=== PATIENT | male | born 1965 | race Caucasian/White ===

== ENCOUNTER 2017-04-23 10:08 | Emergency (ER) | payer OTHER, SELFPAY ==
[2017-04-23 10:11] VITALS: BP 184/99; PULSE 81; RESP 16; TEMP 36.8; O2SAT 99; BMI 31.0
--- NOTE | 2017-04-23 10:23 | US_ITS ---
STUDY: ABDOMINAL ULTRASOUND - RIGHT UPPER QUADRANT REASON FOR VISIT: Male, 51 years old. Abdominal pain. TECHNIQUE: Ultrasound evaluation of the right upper quadrant was performed with real-time and static huang-scale imaging. TECHNICAL QUALITY: Adequate. COMPARISON: None. FINDINGS: Liver: The liver measures 16.1 cm. There is normal echogenicity of the liver. The bile ducts are within normal limits. There is hepatic color flow. The direction of portal flow is hepatopetal. There is no demonstrated mass lesion. Gallbladder: Normal distended gallbladder. The gallbladder wall measures 2.4 mm. There is a negative sonographic Franco's sign. There is no pericholecystic fluid. There are no gallstones. Common Bile Duct (C.B.D.): The common bile duct measures 5.2 mm. Pancreas: There is nonvisualization of the pancreas due to overlying bowel gas. Right Kidney: Normal size of the right kidney. The right kidney measures 12.2 cm x 6.6 cm x 6.1 cm. Normal renal cortex. The right cortex measures 2.2 cm. There is a 1.5 cm x 1.4 cm x 1.5 cm cyst in the superior pole of the right kidney. There is no right hydronephrosis. US/Gallbladder IMPRESSION: Normal right upper quadrant ultrasound examination. Electronically Signed: Igor Irwin MD at 12:13 EDT Tel [phone], Service support ,
--- NOTE | 2017-04-23 10:32 | ED.DCSUM_ITS ---
- ER Visit Summary Date of Service: 04/23/17 Chief Complaint: Abdominal pain History of Present Illness: The patient is a 51 M who has right sided abdominal pain. Started about a week ago. He states it has been constant pain. It stabbing and burning in the right flank and upper quadrant area. He denies nausea, vomiting, diarrhea, constipation or urinary symptoms. He has not had a fever. No history of kidney stones. He went to an urgent care and they directed him here. He has a history of a gastric bypass surgery Physical Examination: Vital signs reviewed. HEENT exam unremarkable. Heart is regular rate and rhythm without murmurs. Lungs are clear to auscultation. Abdomen is soft with tenderness in the right upper quadrant. He has some mild tenderness in the right flank. He has no pain in the right lower quadrant. Extremities reveal no edema. Skin exam normal. Neurologic exam normal. Test Results: Laboratory studies normal except for glucose of 228. Right upper quadrant ultrasound normal Emergency Department Course and Treatment: Patient was given morphine and Zofran Treatment Plan: Unclear the etiology of his pain. His labs are completely normal. I do not feel he requires any further testing. He will continue his home pain medications and will follow up with his PCP for further testing Disposition: Discharge Impression: Abdominal pain This note was generated with [employer] dictation software. It may contain incorrect words, spelling, and punctuation that were not noted in review of the chart prior to signing ED Disposition - Plan for ED Patient: Chief Complaint: Abd Pain Referrals: Abelardo Nava MD [Primary Care Provider] -
[2017-04-23] MEDS: Ondansetron 4 MG/2 ML Vial IV (10:48)
[2017-04-23 11:14] LABS: Absolute Lymphocyte Count 1.71 X10^3/ul (0.83-4.51); Absolute Neutrophil Count 3.6 X10^3/uL (2.0-7.7); Basophil# 0.04 X10^3/uL; Basophil% 0.7 % (0-1); Eosinophil# 0.13 X10^3/uL; Eosinophils% 2.2 % (0-5); Hematocrit 44.4 % (40-54); Hemoglobin 15.4 g/dl (13.0-16.5); Lymphocyte # 1.71 X10^3/ul (4.0); Mean Corp Hgb Conc 34.7 g/gl (32-36); Mean Corpuscular Hgb 30.4 pg (27.0-32.0); Mean Corpuscular Volume 87.7 fL (80-94); Mean Platelet Vol. 11.1 fl (6.2-12.0); Monocyte# 0.34 X10^3/uL; Monocyte% 5.8 % (0-10); Neutrophil # 3.64 X10^3/uL (2.7-7.7); Neutrophil % 61.8 % (47-70); Platelet Count 234 K/mm3 (150-450); RBC Distribution Width SD 41.1 fl (35.1-43.9); Red Blood Count 5.06 M/mm3 (4.6-6.2); White Blood Count 5.9 K/mm3 (4.4-11.0)
[2017-04-23 11:16] LABS: POSITIVE COUNT NO; POSITIVE DIFFERENTIAL NO; POSITIVE MORPHOLOGY NO
[2017-04-23 11:26] LABS: AST(SGOT) 30 U/L (15-37); Alanine Aminotransfer ALT/SGPT 42 U/L (16-61); Alkaline Phosphatase 82 U/L (45-117); Anion Gap 7 (5-15); BUN 7 mg/dL (7-18); BUN/Creat Ratio 10.6 RATIO (10-20); Bilirubin, Direct 0.13 mg/dL (0.00-0.30); Calcium,Total 8.7 mg/dL (8.5-10.1); Chloride 105 mmol/L (98-107); Creatinine, Serum 0.66 mg/dL (0.70-1.30); EST Glomerular Filtration Rate 134 mL/min (>60); Est Glom Filt Rate - Afr Amer 162 mL/min (>60); Estimated Creatinine Clearance 129.44 ml/min; Globulin 3.3 g/dL (2.2-4.2); Glucose 228 mg/dL (74-106); Lipase 76 U/L (73-393); Potassium 3.8 mmol/L (3.5-5.1); Protein, Total 7.3 g/dL (6.4-8.2); Sodium Level 139 mmol/L (136-145)
[2017-04-23 11:45] LABS: Bacteria 0 SEEN /hpf (None Seen); Mucous, Urine 0 SEEN /hpf (<or=2+); Red Blood Cells-Urine 0 SEEN /hpf (0-5); White Blood Cells 0 SEEN /hpf (0-5)
[2017-04-23 11:49] LABS: Color, Urine Yellow (Yellow); Glucose, Dipstick 1000 mg/dl (Normal); Ketone-Dipstick Negative (Negative); Leukocyte Esterase-Dipstick Negative /ul (Negative); Nitrite-Dipstick Negative (Negative); Occult Blood-Urine Negative /ul (Negative); Protein-Dipstick 15 mg/dl (Negative); Specific Gravity, Urine 1.015 (1.002-1.030); Urine Bilirubin Dipstick Negative (Negative); Urine Clarity Sl. Cloudy (Clear); Urine Urobilinogen Normal (Normal)
[2017-04-23 11:58] LABS: Squamous Epithelial Cells - UA 0-5 SEEN /hpf (0-5)
--- NOTE | 2017-04-23 12:27 | ED.DEP ---
ED Disposition - Plan for ED Patient: Disposition: Home or Assisted Living Chief Complaint: Abd Pain Instructions: ED Abdominal Pain Unkn Cause Referrals: Abelardo Nava MD [Primary Care Provider] -
== END 2017-04-23 12:57 | disposition home or self-care (01) ==
PROVIDERS: Emergency Provider Emergency Medicine; Family Provider Internal Medicine; PCP Internal Medicine
DX: R10.9 Unspecified abdominal pain (principal); Z98.84 Bariatric surgery status; E11.9 Type 2 diabetes mellitus without complications; E78.00 Pure hypercholesterolemia, unspecified
CPT/HCPCS: 76705; 80048; 80076; 81001; 83690; 85025; 99283; A4216; J2405

== ENCOUNTER 2017-05-27 21:51 | Observation (INO) | payer OTHER, SELFPAY ==
[2017-05-27 21:53] VITALS: BP 163/103; PULSE 80; RESP 18; TEMP 36.6; O2SAT 98; BMI 29.5
[2017-05-27 22:11] VITALS: O2SAT 98
--- NOTE | 2017-05-27 22:11 | RAD_ITS ---
STUDY: X-RAY CHEST REASON FOR EXAM: Male, 51 years old. Chest pain TECHNIQUE: PA and lateral views of the chest. COMPARISON: None. FINDINGS: Lungs are hyperinflated. There is no focal consolidation. Normal size heart. Normal mediastinum and harvey. Normal visualized pulmonary arteries. There is atherosclerotic calcification of the aortic arch with tortuosity. There are diffuse degenerative changes of the visualized thoracic spine. Normal visualized ribs, clavicles, and shoulders. There are 2 leads of the stimulator projecting over the dorsal aspect of the mid thoracic spine. There is no demonstrated abnormality of the visualized soft tissue structures of the upper abdomen. RAD/Chest PA and Lateral IMPRESSION: Hyperinflated lungs may reflect underlying COPD. Electronically Signed: Tricia Denny MD at 22:42 EDT Tel , Service support ,
--- NOTE | 2017-05-27 22:11 | EKG12_ITS ---
Test Reason : CP Blood Pressure : / mmHG Vent. Rate : 074 BPM Atrial Rate : 074 BPM P-R Int : 146 ms QRS Dur : 096 ms QT Int : 380 ms P-R-T Axes : 011 009 025 degrees QTc Int : 421 ms Normal sinus rhythm Normal ECG Confirmed by DEVIKA ASHER MD ([id number]), editor trade journal RICCARDO BORGES ([id number] on 05/29/2017 3:36:00 PM Referred By: LINDSAY Confirmed By:DEVIKA ASHER MD
[2017-05-27 22:26] VITALS: BP 179/97; PULSE 75
[2017-05-27] MEDS: Aspirin 81 MG TAB.CHEW 324 MG PO (22:26)
[2017-05-27 22:29] LABS: Basophil# 0.05 X10^3/uL; Basophil% 0.6 % (0-1); Eosinophil# 0.16 X10^3/uL; Hemoglobin 15.2 g/dl (13.0-16.5); Lymphocyte % 27.3 % (19-41); Mean Corp Hgb Conc 36.2 g/gl (32-36); Mean Corpuscular Hgb 31.1 pg (27.0-32.0); Mean Corpuscular Volume 85.9 fL (80-94); Mean Platelet Vol. 11.1 fl (6.2-12.0); Monocyte# 0.57 X10^3/uL; Monocyte% 7.1 % (0-10); Neutrophil # 5.01 X10^3/uL (2.7-7.7); Neutrophil % 62.3 % (47-70); Platelet Count 265 K/mm3 (150-450); RBC Distribution Width SD 39.9 fl (35.1-43.9); Red Blood Count 4.89 M/mm3 (4.6-6.2); White Blood Count 8.1 K/mm3 (4.4-11.0)
[2017-05-27 22:31] LABS: POSITIVE COUNT NO; POSITIVE DIFFERENTIAL NO; POSITIVE MORPHOLOGY NO
[2017-05-27 22:38] VITALS: BP 138/97; PULSE 78
[2017-05-27 22:45] VITALS: BP 149/85; PULSE 85
[2017-05-27 22:47] LABS: Anion Gap 9 (5-15); BUN 10 mg/dL (7-18); BUN/Creat Ratio 11.5 RATIO (10-20); Calcium,Total 8.9 mg/dL (8.5-10.1); Chloride 102 mmol/L (98-107); Creatinine, Serum 0.87 mg/dL (0.70-1.30); EST Glomerular Filtration Rate 98 mL/min (>60); Est Glom Filt Rate - Afr Amer 118 mL/min (>60); Estimated Creatinine Clearance 98.19 ml/min; Glucose 162 mg/dL (74-106); Sodium Level 139 mmol/L (136-145)
[2017-05-27 23:03] VITALS: BP 147/85; PULSE 80; RESP 14; O2SAT 98
--- NOTE | 2017-05-27 23:21 | HP.PCM_ITS ---
Problem List (1) Chest pain Status: Acute (2) HLD (hyperlipidemia) Status: Acute (3) Chronic pain Status: Chronic (4) History of diabetes mellitus, type II Status: Chronic (5) History of obesity Status: Chronic (6) Restless legs syndrome (RLS) Status: Chronic History of Present Illness Date of Admission: 05/27/17 Chief Complaint: Chest pain The patient is a 51 year old male w/ h/o DMII, HTN, chronic pain, and restless leg admitted for chest pain. He started having chest discomfort that he originally thought was indigestion and asked his to take him home. Despite resting at home, he continued to have worsening substernal chest pressure. The pressure was constant and moderate. Pressure was associated with left arm heaviness. The pain would radiate up this neck. Nothing made the pain worse or better. His blood pressure at home was in the 200s. He became concern and went to the ED for workup. Last stress test was 5 years ago. Past Medical History Past Medical History (Chronic Problems): Chronic Problems Chronic pain (Chronic) Restless legs syndrome (RLS) (Chronic) History of obesity (Chronic) History of diabetes mellitus, type II (Chronic) Allergies amantadine Allergy (Verified 04/23/17 10:10) Hives metformin [From Glucophage] Allergy (Verified 04/23/17 10:10) Itching pravastatin [From Pravachol] Allergy (Verified 04/23/17 10:10) Hives salmon oil Allergy (Verified 04/23/17 10:10) Itching simvastatin [From Zocor] Allergy (Verified 04/23/17 10:10) Hives tamsulosin Allergy (Verified 04/23/17 10:10) Swelling Home Medications: Ambulatory Orders Medication Instructions Recorded Gabapentin 800 mg PO 4X/DAY 05/11/14 Atorvastatin Calcium [Lipitor] 40 mg PO QHS 02/24/15 Duloxetine Hcl [Cymbalta] 120 mg PO DAILY 02/24/15 Lisinopril [Zestril] 20 mg PO DAILY 03/31/15 Aspirin [Aspir-Low] 81 mg PO DAILY 04/23/17 Cholecalciferol (VIT D3) [Vitamin 1,000 unit PO DAILY 04/23/17 D] Cyanocobalamin [Vitamin B12] 1,000 mcg PO DAILY@0800 04/23/17 Ferrous Sulfate 325 mg PO DAILY@0800 04/23/17 Glipizide 5 mg PO DAILY 04/23/17 Liraglutide [Victoza 2-Farhat] 0.12 mg SQ DAILY 04/23/17 Multivitamins,Therapeutic 1 tablet PO DAILY 04/23/17 [Multivitamin] Tadalafil [Cialis] 5 mg PO DAILY 04/23/17 buPROPion XL [Wellbutrin Xl] 300 mg PO DAILY 04/23/17 traMADol [Ultram (G)] 50 mg PO Q6H PRN PRN 04/23/17 Surgical History: - - 2 prior hip surgeries carpal tunnel gastric bypass Psychiatric History: No pertinent psych hx Lives: Spouse/ Significant Other Smoking Status: Never smoker Alcohol: None Drugs: None - *Family History Maternal History Items: No pertinent history Review of Systems Constitutional: Denies: Chills, Fever, Weight Change Eyes: Denies: Conjunctivae Inflammation, Double vision, Drainage HEENT: Denies: Head Aches, Sinus Congestion, Sinus Drainage Cardiovascular: Reports: Chest Pain, Chest Pressure, Chest Tightness, Heaviness. Denies: Palpitations Respiratory: Denies: Cough, Shortness of breath at rest, Sputum production Gastrointestinal: Denies: Abdominal Pain, Nausea, Vomiting Genitourinary: Denies: Dysuria Musculoskeletal: Denies: Joint Pain, Joint Tenderness Skin: Denies: Rash, Wounds Neurological: Denies: Numbness, Tingling, Focal weakness Psychiatric: Denies: Anxiety, Depression, Homicidal Ideations, Suicidal Ideations Hematologic/ Lymphatic: Denies: Easy Bruising, Easy Bleeding VTE Information - Inpt Only VTE Present on Admission: No VTE Mechan Device Prophylaxis: SCD's VTE Pharm Prophylaxis ordered?: No Patient Problems: Active and Suspected Problems Chest pain (Acute) - Physical Exam General: Alert, Oriented x3, Cooperative HEENT: Atraumatic, PERRLA, EOMI, Normocephalic Neck: Supple, No JVD, Negative Carotid Bruits Lungs: Clear to auscultation, Normal air movement Cardiovascular: Regular rate, No murmurs Abdomen: Bowel Sounds Present, Soft, Non Tender Extremities: No edema, Capillary Refill Less than 3 Seconds Skin: No rashes, No breakdown Musculoskeletal: No Tenderness to Palpation of Joints or Extremities Neurological: Cranial nerves II-XII grossly intact Psych/Mental Status: Normal Affect, Appropriate Vital Signs Temp Pulse Resp BP Pulse Ox 98 F 80 14 147/85 H 98 05/27/17 21:53 05/27/17 23:03 05/27/17 23:03 05/27/17 23:03 05/27/17 23:03 Oxygen Flow Rate (L/min) 2 Oxygen Delivery Method Nasal Cannula Weight: 90.718 kg Body Mass Index (BMI) 29.5 Finger Stick Blood Glucose 253 Laboratory Tests Past 24 Hrs 05/27/17 05/27/17 05/27/17 22:07 22:07 22:07 WBC 8.1 RBC 4.89 Hgb 15.2 Hct 42.0 MCV 85.9 MCH 31.1 MCHC 36.2 H RDW 13.0 RDW Differential 39.9 Plt Count 265 MPV 11.1 Immature Gran % (Auto) 0.700 Neut % (Auto) 62.3 Lymph % (Auto) 27.3 Morehouse % (Auto) 7.1 Eos % (Auto) 2.0 Baso % (Auto) 0.6 Absolute Neuts (auto) 5.0 Absolute Lymphs (auto) 2.20 Total Counted Not Reportable D-Dimer Quant (PE/DVT) 0.40 Sodium 139 Potassium 4.0 Chloride 102 Carbon Dioxide 28.0 Anion Gap 9 BUN 10 Creatinine 0.87 Estim Creat Clear Calc 98.19 Est GFR (MDRD) Af Amer 118 Est GFR (MDRD) Non-Af 98 BUN/Creatinine Ratio 11.5 Glucose 162 H Calcium 8.9 Troponin I < 0.02 Assessment/Plan Active and Suspected Problems Chest pain (Acute) 51 year old male w/ h/o DMII, HTN, chronic pain, and restless leg admitted for chest pain. 1) Chest pain: Heart score 5 given highly suspicious history, age, and > 3 risk factors. Trops negative. EKG and chest xray were unremarkable. Will start statin, coreg, and ASA. ECHO and stress test in AM. FLP pending. 2) DMII: Resume home meds. Monitor. 3) HTN: SBP 170s. Resume home meds. Will consider labetalol PRN if persistently elevated. 4) Prophylaxis: SCD
--- NOTE | 2017-05-27 23:24 | ED.VISSUMM ---
- ER Visit Summary Date of Service: 05/27/17 Chief Complaint: [] Chest pain History of Present Illness: The patient is a 51 M [] complaining of midsternal chest pain with radiation to left upper extremity. Has a history of diabetes. He reports pain started approximately 12 noon today, 10 hours ago. Reports the pain is intermittent. Denies diaphoresis. His radiation to the neck or jaw. Reports last stress test was 5 years ago. Denies PE risk factors. Reports his blood pressure at one point spiked to over 200 systolic during his discomfort at home. He reports taking an extra lisinopril prior to arrival. Reports compliance with his medications. Physical Examination: [] Afebrile, vital signs stable. 51-year-old male in no acute distress. Cardiovascular exam is regular rate and rhythm. Lungs are clear to auscultation. Abdomen is soft and nontender. No lower extremity edema. Test Results: [] CBC, BMP, troponin, d-dimer all within normal limits. Chest x-ray negative. EKG shows normal sinus rhythm, rate of 74 without ischemic changes or interval abnormalities. Emergency Department Course and Treatment: [] Patient underwent routine cardiac evaluation. He received aspirin and nitroglycerin. Patient reports his pain went down to a 4 out of 10 after the third nitroglycerin. He was then given a dose of intravenous fentanyl with pain resolution. He will be admitted for stress testing in light of his history of diabetes and other risk factors. Case discussed with hospitalist will admit the patient on telemetry. Treatment Plan: [] Admit to telemetry with inpatient stress testing. Disposition: [] Admit, stable. Impression: [] Chest pain History of diabetes This note was generated with [employer] dictation software. It may contain incorrect words, spelling, and punctuation that were not noted in review of the chart prior to signing ED Disposition - Plan for ED Patient: Chief Complaint: Chest Pain Referrals: Rocael Bustamante MD [Primary Care Provider] -
[2017-05-27] MEDS: fentaNYL 100 MCG/2 ML Ampul 50 MCG IV (23:45)
[2017-05-28] VITALS (12 sets, daily range): BP systolic 138–163; BP diastolic 77–88; PULSE 62–79; RESP 14–18; TEMP 36.7–37.1; O2SAT 93–99; BMI 30.2
[2017-05-28] MEDS: 0.9% NaCl Peripheral Flush Adult/Peds IV ×3 (01:32→11:21)
[2017-05-28] MEDS: Morphine 2 MG/ML Syringe IV ×3 (01:32→11:20)
[2017-05-28] MEDS: Gabapentin 800 MG Tablet PO ×2 (01:32→11:18)
--- NOTE | 2017-05-28 05:55 | EKG12_ITS ---
Test Reason : AM EKG Blood Pressure : / mmHG Vent. Rate : 060 BPM Atrial Rate : 060 BPM P-R Int : 148 ms QRS Dur : 100 ms QT Int : 434 ms P-R-T Axes : 017 028 006 degrees QTc Int : 434 ms Normal sinus rhythm Normal ECG Confirmed by ANOML CORONA, TORRES ([id number]), photograph editor RICCARDO BORGES ([id number]) on 05/31/2017 1:43:44 PM Referred By: IESHA PHAM Confirmed By:TORRES COREA MD
[2017-05-28] MEDS: Aspirin E.C. 81 MG Tablet PO (06:16)
[2017-05-28] MEDS: Lisinopril 20 MG Tablet PO (06:16)
[2017-05-28 06:18] LABS: Absolute Lymphocyte Count 2.25 X10^3/ul (0.83-4.51); Absolute Neutrophil Count 3.9 X10^3/uL (2.0-7.7); Basophil# 0.03 X10^3/uL; Basophil% 0.4 % (0-1); Eosinophil# 0.19 X10^3/uL; Eosinophils% 2.7 % (0-5); Hemoglobin 14.7 g/dl (13.0-16.5); Lymphocyte # 2.25 X10^3/ul (4.0); Lymphocyte % 32.2 % (19-41); Mean Corpuscular Hgb 30.2 pg (27.0-32.0); Mean Corpuscular Volume 86.4 fL (80-94); Mean Platelet Vol. 10.7 fl (6.2-12.0); Monocyte% 8.6 % (0-10); Neutrophil # 3.87 X10^3/uL (2.7-7.7); Neutrophil % 55.5 % (47-70); Platelet Count 220 K/mm3 (150-450); RBC Distribution Width CV 13.1 % (11.6-14.6); RBC Distribution Width SD 41.2 fl (35.1-43.9); Red Blood Count 4.86 M/mm3 (4.6-6.2)
[2017-05-28 06:22] LABS: POSITIVE COUNT NO; POSITIVE DIFFERENTIAL NO; POSITIVE MORPHOLOGY NO
[2017-05-28 06:41] LABS: Partial Thromboplast Time 28.6 Seconds (24.1-36.2)
[2017-05-28 06:46] LABS: ALB/GLOB Ratio 1.3 RATIO (0.9-2.4); AST(SGOT) 15 U/L (15-37); Alanine Aminotransfer ALT/SGPT 23 U/L (16-61); Albumin, Serum 3.7 g/dL (3.2-5.0); Alkaline Phosphatase 66 U/L (45-117); Anion Gap 5 (5-15); BUN 9 mg/dL (7-18); BUN/Creat Ratio 14.7 RATIO (10-20); Calcium,Total 8.5 mg/dL (8.5-10.1); Chloride 105 mmol/L (98-107); Cholesterol 148 mg/dL (200); Creatinine, Serum 0.61 mg/dL (0.70-1.30); EST Glomerular Filtration Rate 146 mL/min (>60); Est Glom Filt Rate - Afr Amer 177 mL/min (>60); Estimated Creatinine Clearance 140.05 ml/min; Globulin 2.9 g/dL (2.2-4.2); Glucose 93 mg/dL (74-106); High Density Lipoprotein 28 mg/dL; Potassium 3.7 mmol/L (3.5-5.1); Protein, Total 6.6 g/dL (6.4-8.2); Sodium Level 140 mmol/L (136-145); Thyroid Stim Hormone (TSH) 1.49 uIU/mL (0.358-3.74); Triglycerides 77 mg/dL; Very Low Density Lipoprotein 15 mg/dL (5-40)
[2017-05-28 06:49] LABS: International Normalized Ratio 1.1; Prothrombin Time (Protime)PT. 13.9 SECONDS (11.7-14.9)
[2017-05-28] MEDS: Ferrous Sulfate 325 MG Tablet PO (09:13)
[2017-05-28] MEDS: DULoxetine Hcl 60 MG Capsule 120 MG PO (09:13)
[2017-05-28] MEDS: glipiZIDE 5 MG Tablet PO (09:13)
[2017-05-28] MEDS: Multivitamins,Therapeutic Tablet 1 TABLET PO (09:13)
[2017-05-28] MEDS: Carvedilol 3.125 MG TABLET PO (09:13)
[2017-05-28] MEDS: Cyanocobalamin 500 MCG Tablet 1000 MCG PO (09:13)
[2017-05-28] MEDS: buPROPion (XL) 300 MG TABLET.XL PO (09:14)
[2017-05-28] MEDS: traMADol 50 MG Tablet PO (09:14)
[2017-05-28 09:21] LABS: Bedside Glucose 98 mg/dL (70-110)
[2017-05-28] MEDS: Ipratropium/Albuterol Sulfate 3 ML AMPUL.NEB INHALATION (13:51)
[2017-05-28 14:05] LABS: Bedside Glucose 105 mg/dL (70-110)
--- NOTE | 2017-05-28 14:16 | PCM.DC ---
- Discharge Diagnoses Current Active Problems: Current Active and Chronic Problems Chest pain (Acute), Tightness, Suspected secondary to Possible Underlying Asthma/Lung Disease (Stress test unremarkable, cardiac enzymes serially unremarkable, EKG without acute findings, chest tightness improved w/ aerosol administration) Hypertension, Uncontrolled Hyperlipidemia Allergic Rhinitis (On outpatient weekly allergy shots) Diabetes mellitus type II RLE Chronic Pain Syndrome Obesity GERD You will use the following diet at home:: Calorie/Carbohydrate Controlled (specify 1200, 1400, etc) - 1800 ADA/Cardiac diet, Cardiac Your food should be the consistency of: Regular Your liquids should be the consistency of: Regular/Thin Discharge Activity: - - Avoid activity which causes worsened symptoms until pulmonary evaluation. May resume sexual activity in: 1-2 weeks Weight Bearing Status: Weight bearing as tolerated Call your doctor if you observe: Fever of 101 or Higher, Inability to urinate, Inability to have a bowel movement, Shortness of breath, Dizziness, Fainting spells, Chest pain, Uncontrolled pain Instructions: ED Chest Pain NonCardiac, ED Chest Pain Atypical Unkn Cause, Understanding Asthma, What is COPD?, Caring for Your Inhaler, Using an Inhaler with a Spacer, Using an Inhaler Without a Spacer Allergies/Adverse Reactions: Allergies amantadine Allergy (Verified 04/23/17 10:10) Hives metformin [From Glucophage] Allergy (Verified 04/23/17 10:10) Itching pravastatin [From Pravachol] Allergy (Verified 04/23/17 10:10) Hives salmon oil Allergy (Verified 04/23/17 10:10) Itching simvastatin [From Zocor] Allergy (Verified 04/23/17 10:10) Hives tamsulosin Allergy (Verified 04/23/17 10:10) Swelling Medications to take at Discharge Gabapentin 800 mg PO 4X/DAY 05/11/14 Atorvastatin Calcium [Lipitor] 40 mg PO QHS 02/24/15 Duloxetine Hcl [Cymbalta] 120 mg PO DAILY 02/24/15 Lisinopril [Zestril] 20 mg PO DAILY 03/31/15 Aspirin [Aspir-Low] 81 mg PO DAILY 04/23/17 Cholecalciferol (VIT D3) [Vitamin D3] 1,000 unit PO DAILY 04/23/17 Cyanocobalamin [Vitamin B12] 1,000 mcg PO DAILY@0800 04/23/17 Ferrous Sulfate 325 mg PO DAILY@0800 03/19/18 Glipizide 5 mg PO DAILY 04/23/17 Liraglutide [Victoza 2-Farhat] 0.12 mg SQ DAILY 04/23/17 Multivitamins,Therapeutic [Multivitamin] 1 tablet PO DAILY 04/23/17 Tadalafil [Cialis] 5 mg PO DAILY 04/23/17 buPROPion XL [Wellbutrin Xl] 300 mg PO DAILY 04/23/17 traMADol [Ultram] 50 mg PO Q6H PRN PRN 04/23/17 Albuterol IH (ProAir) [Proair Hfa] 1 - 2 puff INHALATION Q4H PRN PRN #1 inhaler 05/28/17 Carvedilol [Coreg (Beta Violetta)] 3.125 mg PO BID #60 tab 05/28/17 Montelukast [Singulair] 10 mg PO DAILY #30 tab 05/28/17 The following prescriptions were given: Albuterol IH (ProAir) [Proair Hfa] 1 - 2 puff INHALATION Q4H PRN PRN #1 inhaler PRN Reason: Dyspnea, wheezing Montelukast [Singulair] 10 mg PO DAILY #30 tab Carvedilol [Coreg (Beta Violetta)] 3.125 mg PO BID #60 tab Primary Care Physician: Rocael Bustamante MD [Primary Care Provider] - Please follow up with your Primary Care Physician in: Follow-up within 3-5 days to review admission. Please Follow Up With: Geovanny Montenegro DO When: Follow-up for eval for suspected Asthma/COPD within 1-2 wk, may see MANAGER TRAINING AND DEVELOPMENT. Proposed Discharge Date: 05/28/17
--- NOTE | 2017-05-28 14:21 | DCINST_ITS ---
- Discharge Diagnoses Current Active Problems: Current Active and Chronic Problems Chest pain (Acute), Tightness, Suspected secondary to Possible Underlying Asthma /Lung Disease (Stress test unremarkable, cardiac enzymes serially unremarkable, EKG without acute findings, chest tightness improved w/ aerosol administration) Hypertension, Uncontrolled Hyperlipidemia Allergic Rhinitis (On outpatient weekly allergy shots) Diabetes mellitus type II RLE Chronic Pain Syndrome Obesity GERD You will use the following diet at home:: Calorie/Carbohydrate Controlled ( specify 1200, 1400, etc) - 1800 ADA/Cardiac diet, Cardiac Your food should be the consistency of: Regular Your liquids should be the consistency of: Regular/Thin Discharge Activity: - - Avoid activity which causes worsened symptoms until pulmonary evaluation. May resume sexual activity in: 1-2 weeks Weight Bearing Status: Weight bearing as tolerated Call your doctor if you observe: Fever of 101 or Higher, Inability to urinate, Inability to have a bowel movement, Shortness of breath, Dizziness, Fainting spells, Chest pain, Uncontrolled pain Instructions: ED Chest Pain NonCardiac, ED Chest Pain Atypical Unkn Cause, Understanding Asthma, What is COPD?, Caring for Your Inhaler, Using an Inhaler with a Spacer, Using an Inhaler Without a Spacer Allergies/Adverse Reactions: Allergies amantadine Allergy (Verified 04/23/17 10:10) Hives metformin [From Glucophage] Allergy (Verified 04/23/17 10:10) Itching pravastatin [From Pravachol] Allergy (Verified 04/23/17 10:10) Hives salmon oil Allergy (Verified 04/23/17 10:10) Itching simvastatin [From Zocor] Allergy (Verified 04/23/17 10:10) Hives tamsulosin Allergy (Verified 04/23/17 10:10) Swelling Medications to take at Discharge Gabapentin 800 mg PO 4X/DAY 05/11/14 Atorvastatin Calcium [Lipitor] 40 mg PO QHS 02/24/15 Duloxetine Hcl [Cymbalta] 120 mg PO DAILY 02/24/15 Lisinopril [Zestril] 20 mg PO DAILY 03/31/15 Aspirin [Aspir-Low] 81 mg PO DAILY 04/23/17 Cholecalciferol (VIT D3) [Vitamin D3] 1,000 unit PO DAILY 04/23/17 Cyanocobalamin [Vitamin B12] 1,000 mcg PO DAILY@0800 04/23/17 Ferrous Sulfate 325 mg PO DAILY@0800 03/19/18 Glipizide 5 mg PO DAILY 04/23/17 Liraglutide [Victoza 2-Farhat] 0.12 mg SQ DAILY 04/23/17 Multivitamins,Therapeutic [Multivitamin] 1 tablet PO DAILY 04/23/17 Tadalafil [Cialis] 5 mg PO DAILY 04/23/17 buPROPion XL [Wellbutrin Xl] 300 mg PO DAILY 04/23/17 traMADol [Ultram] 50 mg PO Q6H PRN PRN 04/23/17 Albuterol IH (ProAir) [Proair Hfa] 1 - 2 puff INHALATION Q4H PRN PRN #1 inhaler 05/28/17 Carvedilol [Coreg (Beta Violetta)] 3.125 mg PO BID #60 tab 05/28/17 Montelukast [Singulair] 10 mg PO DAILY #30 tab 05/28/17 The following prescriptions were given: Albuterol IH (ProAir) [Proair Hfa] 1 - 2 puff INHALATION Q4H PRN PRN #1 inhaler PRN Reason: Dyspnea, wheezing Montelukast [Singulair] 10 mg PO DAILY #30 tab Carvedilol [Coreg (Beta Violetta)] 3.125 mg PO BID #60 tab Primary Care Physician: Rocael Bustamante MD [Primary Care Provider] - Please follow up with your Primary Care Physician in: Follow-up within 3-5 days to review admission. Please Follow Up With: Geovanny Montenegro DO When: Follow-up for eval for suspected Asthma/COPD within 1-2 wk, may see CORPORATE ADMINISTRATOR. Proposed Discharge Date: 05/28/17
--- NOTE | 2017-05-28 14:21 | PCM.DC.SUM ---
Discharge Date and Diagnosis - Problem List Patient Problems: Active and Suspected Problems Chest pain (Acute) Date of Admission: 05/27/17 Date of Discharge: 05/28/17 - Primary Discharge Diagnosis Active and Suspected Problems Chest pain (Acute), Tightness, Suspected secondary to Possible Underlying Asthma/Lung Disease (Stress test unremarkable, cardiac enzymes serially unremarkable, EKG without acute findings, chest tightness improved w/ aerosol administration) Hypertension, Uncontrolled Hyperlipidemia Allergic Rhinitis (On outpatient weekly allergy shots) Diabetes mellitus type II RLS Chronic Pain Syndrome Obesity GERD - Secondary Discharge Diagnosis Chronic Problems Hypertension Hyperlipidemia Allergic Rhinitis (On outpatient weekly allergy shots) Diabetes mellitus type II RLS Chronic Pain Syndrome Obesity GERD Hospital Course and Treatment Operations: None Procedures: EKG, Stress test Summary of Care Provided: The patient is a 51 y/o M w/ PMHx: HTN, HLD, Allergic Rhinitis, Diabetes mellitus type II, RLS, Chronic Pain Syndrome, Obesity, GERD who presents to the [facility] ED on 05/27/17 with onset of substernal chest pressure which was constant and moderate with left arm paresthesia with no exacerbating or alleviating factors with the blood pressure noted initially to be in the 200s upon self check at home with associated dyspnea ongoing for several days. Upon evaluation patient noted that discomfort was in a very specific bandlike region underneath the breast but had improved since initial presentation with pain regimen. In the ED work-up included EKG sinus rhythm without evidence of acute ischemia, CXR without acute process, unremarkable CBC and chemistry, cardiac enzyme set x 1 normal. The patient was admitted to the PCU, maintained on cardiac telemetry, serial cardiac enzymes were obtained as well as serial EKGs which remained unremarkable. Patient underwent AM stress testing which was noted to be negative for inducible ischemia. FLP was obtained during admission and notable for only low HDL with continued home statin regimen with lifestyle and diet changes encouraged. Patient despite negative stress testing and cardiac evaluation noted ongoing tightness sensation with notable underlying severe allergies requiring weekly shots and CXR w/ concerning findings for underlying lung disease without tobacco use history, thus added aerosols and patient noted improvement following aerosol treatments. Given patient improvement with aerosols, suspect underlying lung disease thus as discussed with patient, patient discharged to home in improved condition with recommendation for follow-up with primary care physician within 3-5 days in addition to Pulmonary referral within 1-2 weeks with addition singulair and PRN albuterol inhaler. Advised if discomfort recurrently severe to re-present to the ED for evaluation. DAY OF DISCHARGE PROGRESS NOTE: Subjective: Patient without acute event overnight per self and nursing report. Patient denies fever, chills, nausea, emesis, abdominal pain. Patient did note improvement in chest tightness and dyspnea, but still present, improved after aerosol treatments. Patient agreeable to discharge to home given improvement and negative cardiac evaluation as reviewed. Patient will be discharged with follow-up with primary care physician within 3-5 days in addition to Pulmonary referral and his pain management physician. Objective: T 98.6, heart rate 79, BP 138/83, respiratory rate 18, 93% on room air. Physical Examination: General: awake, alert, oriented x 3 and cooperative, seated upright in the bed, NAD. Skin: normal color, turgor, no icterus, cyanosis. HEENT: AT/NC, EOMI, PERRLA, MMM. Lungs: Diminished breath sounds bilateral bases, mild to moderate effort, no rales, ronchi or wheezing; Heart: Regular rate and rhythm; no gallop, rub audible. Abdomen: soft, NTTP, ND, normal BS. Extremities: no cyanosis, clubbing, or edema. Neurological: patient awake, alert, oriented x 3; cognitive function appears intact upon questioning,; pupils equally reactive to light and accomodation; cranial nerves II-XII grossly normal, moving all 4 extremities, strength, mildly globally decreased secondary to acute presentation. Psychiatric: affect appears normal, no acute evidence of depressive or anxiety feelings. Assessment and Plan: Please see hospital summary above. Discharge Activity: - - Avoid activity which causes worsened symptoms until pulmonary evaluation. May resume sexual activity in: 1-2 weeks Weight Bearing Status: Weight bearing as tolerated Call your doctor if you observe: Fever of 101 or Higher, Inability to urinate, Inability to have a bowel movement, Shortness of breath, Dizziness, Fainting spells, Chest pain, Uncontrolled pain Home Medications: Medications to take at Discharge Gabapentin 800 mg PO 4X/DAY 05/11/14 Atorvastatin Calcium [Lipitor] 40 mg PO QHS 02/24/15 Duloxetine Hcl [Cymbalta] 120 mg PO DAILY 02/24/15 Lisinopril [Zestril] 20 mg PO DAILY 03/31/15 Aspirin [Aspir-Low] 81 mg PO DAILY 04/23/17 Cholecalciferol (VIT D3) [Vitamin D3] 1,000 unit PO DAILY 04/23/17 Cyanocobalamin [Vitamin B12] 1,000 mcg PO DAILY@0800 04/23/17 Ferrous Sulfate 325 mg PO DAILY@0800 04/23/17 Glipizide 5 mg PO DAILY 04/23/17 Liraglutide [Victoza 2-Farhat] 0.12 mg SQ DAILY 04/23/17 Multivitamins,Therapeutic [Multivitamin] 1 tablet PO DAILY 04/23/17 Tadalafil [Cialis] 5 mg PO DAILY 04/23/17 buPROPion XL [Wellbutrin Xl] 300 mg PO DAILY 04/23/17 traMADol [Ultram] 50 mg PO Q6H PRN PRN 04/23/17 Albuterol IH (ProAir) [Proair Hfa] 1 - 2 puff INHALATION Q4H PRN PRN #1 inhaler 05/28/17 Carvedilol [Coreg (Beta Violetta)] 3.125 mg PO BID #60 tab 05/28/17 Montelukast [Singulair] 10 mg PO DAILY #30 tab 05/28/17 Following Prescrptions Were Given to Patient: Albuterol IH (ProAir) [Proair Hfa] 1 - 2 puff INHALATION Q4H PRN PRN #1 inhaler PRN Reason: Dyspnea, wheezing Montelukast [Singulair] 10 mg PO DAILY #30 tab Carvedilol [Coreg (Beta Violetta)] 3.125 mg PO BID #60 tab Primary Care Physician: Rocael Bustamante MD [Primary Care Provider] - Please follow up with your Primary Care Physician in: Follow-up within 3-5 days to review admission. Please Follow Up With: Geovanny Montenegro DO When: Follow-up for eval for suspected Asthma/COPD within 1-2 wk, may see SCIENTIFIC RECRUITER. Patient Instructions: Understanding Asthma, What is COPD?, Caring for Your Inhaler, Using an Inhaler with a Spacer, Using an Inhaler Without a Spacer, ED Chest Pain NonCardiac, ED Chest Pain Atypical Unkn Cause Disposition: Home Minutes spent on discharge:: 20 Patient Condition:: Fair Medical Necessity - Tobacco Use Smoking Status: Never smoker Tobacco Use: Non-smoker Meaningful Use Info Meaningful Use Diagnoses (Choose all that apply): None applicable Code Visit OBSV E&M: 48464 Observation care discharge
--- NOTE | 2017-05-28 14:40 | STRESSREP ---
Stress Test Report Exercise stress test. 51 year old man with a history of chest pain. Stress protocol: Resting EKG demonstrates normal sinus rhythm with a rate of 71 bpm normal intervals and noted resting blood pressure is 138/84 mmHg. The patient exercised according to the regular Jomar protocol for total duration of 7 minutes and 31 seconds patient completed 1 minute and 31 seconds to stage III of the Jomar protocol the maximum heart rate attained was 142 bpm which was 85% maximum predicted heart rate the maximum workload attained was 9.3 metabolic equivalents. At rest there were no ST or T-wave changes noted suggest ischemia at peak exercise upsloping ST changes only were noted would not be the criteria for ischemia. No clinical angina was noted. The resting blood pressure is 138/84 with a peak blood pressure 162/70 mmHg. No clinical angina was noted the test was terminated due to leg fatigue. Conclusion: Exercise stress test with no evidence of ischemia at a moderate workload. No arrhythmias noted. No angina present.
--- NOTE | 2017-05-28 14:43 | STRESSREP_ITS ---
Stress Test Report Exercise stress test. 51 year old man with a history of chest pain. Stress protocol: Resting EKG demonstrates normal sinus rhythm with a rate of 71 bpm normal intervals and noted resting blood pressure is 138/84 mmHg. The patient exercised according to the regular Jomar protocol for total duration of 7 minutes and 31 seconds patient completed 1 minute and 31 seconds to stage III of the Jomar protocol the maximum heart rate attained was 142 bpm which was 85% maximum predicted heart rate the maximum workload attained was 9.3 metabolic equivalents. At rest there were no ST or T-wave changes noted suggest ischemia at peak exercise upsloping ST changes only were noted would not be the criteria for ischemia. No clinical angina was noted. The resting blood pressure is 138/ 84 with a peak blood pressure 162/70 mmHg. No clinical angina was noted the test was terminated due to leg fatigue. Conclusion: Exercise stress test with no evidence of ischemia at a moderate workload. No arrhythmias noted. No angina present.
== END 2017-05-28 14:20 | disposition home or self-care (01) ==
LOC: ED 22:59 → PCU 23:59
PROVIDERS: Admitting Provider Internal Medicine; Emergency Provider Emergency Medicine; Family Provider Family Medicine; PCP Family Medicine; Visit Provider Family Medicine
DX: R07.89 Other chest pain (principal); E11.9 Type 2 diabetes mellitus without complications; E78.5 Hyperlipidemia, unspecified; G25.81 Restless legs syndrome; E66.9 Obesity, unspecified; Z79.899 Other long term (current) drug therapy; Z68.30 Body mass index [BMI] 30.0-30.9, adult; Z71.3 Dietary counseling and surveillance; I10 Essential (primary) hypertension; Z79.82 Long term (current) use of aspirin; Z98.84 Bariatric surgery status; G89.4 Chronic pain syndrome; K21.9 Gastro-esophageal reflux disease without esophagitis
CPT/HCPCS: 36415; 71046; 80048; 80053; 80061; 82962; 83735; 84443; 84484; 85025; 85379; 85610; 85730; 93005; 93017; 96374; 96375; 96376; 99218; 99285; A4216; G0378

== ENCOUNTER → 2017-06-14 09:46 | Outpatient (CLI) | payer OTHER, SELFPAY ==
--- NOTE | 2017-06-14 13:36 | PFT ---
INTRODUCTION: The patient is a 51-year-old male currently under the care of Chrissy Goff NP that presents for pulmonary function testing secondary to a diagnosis of shortness of breath. Respiratory therapy reports good patient effort. Bronchodilators were used during testing. INTERPRETATION: Forced expiration spirometry demonstrates no evidence of a large airways obstructive ventilatory defect. There was no significant response to aerosolized bronchodilators. Spirograms are of good quality and plateau normally. The respiratory flow volume loop appears normal. Body plethysmography was performed and reveals lung volumes to be within normal limits. Diffusing capacity by single breath CO is also within normal limits. IMPRESSION: Normal pulmonary function testing.
== END ==
LOC: PSN 09:46
PROVIDERS: Family Provider Family Medicine; PCP Family Medicine; Visit Provider Nurse Practitioner Acute Care
DX: R07.89 Other chest pain (principal)
CPT/HCPCS: 94060; 94726; 94729

== ENCOUNTER → 2017-06-25 10:46 | Outpatient (CLI) | payer OTHER, SELFPAY ==
[2017-06-25 11:00] VITALS: PULSE 58; PULSE 59; PULSE 60; PULSE 62; PULSE 68; PULSE 81; O2SAT 92; O2SAT 93; O2SAT 94; O2SAT 97; O2SAT 98
--- NOTE | 2017-06-25 13:24 | WT_ITS ---
PSN 6 Minute Walk Test - 6 Minute Walk Test 6 Minute Walk Test: 6 Minute Walk Test PSN:6-Minute Walk Test Start: 06/25/17 11: 04 Freq: Status: Active Protocol: RESP.6MINW Document 06/25/17 11:00 FABIOLA (Rec: 06/25/17 11:10 JLA [id number]) 6 Minute Walk Test Date Performed 06/25/17 Time Performed 11:00 Height 5 ft 9 in Weight: 200 lb Weight in Pounds 200.[address]: Geovanny Montenegro Assistive device used: None Pre-test Oxygen Delivery Method Room Air Pulse Ox (%) 98 Pulse Rate (60-100 beats/min) 62 Dyspnea Manuela Scale (0-10) 1 Exertion Manuela Scale (6-20) 6 1st minute Oxygen Delivery Method Room Air Pulse Ox (%) 93 Pulse Rate (60-100 beats/min) 60 2nd minute Oxygen Delivery Method Room Air Pulse Ox (%) 92 Pulse Rate (60-100 beats/min) 62 3rd minute Oxygen Delivery Method Room Air Pulse Ox (%) 92 Pulse Rate (60-100 beats/min) 59 L 4th minute Oxygen Delivery Method Room Air Pulse Ox (%) 92 Pulse Rate (60-100 beats/min) 58 L 5th minute Oxygen Delivery Method Room Air Pulse Ox (%) 94 Pulse Rate (60-100 beats/min) 81 6th minute Oxygen Delivery Method Room Air Pulse Ox (%) 92 Pulse Rate (60-100 beats/min) 81 Dyspnea Manuela Scale (0-10) 1 Exertion Manuela Scale (6-20) 11 Post-test Oxygen Delivery Method Room Air Pulse Ox (%) 97 Pulse Rate (60-100 beats/min) 68 Full Laps Walked 24 Partial Lap, Number of Tiles Walked 0 Total Distance Walked (ft) 1416 - Interpretation Interpretation: The patient ambulated 1416 feet over the course of 6 minutes on room air without assistive devices or breaks. Pre-testing oxygen saturation was noted to be 98% on room air. With ambulation, the tj oxygen saturation was 92%. This represents a significant exertional oxygen desaturation. - Recommendations Recommendations: There is no indication for the use of supplemental oxygen at this time. However , close interval follow-up is recommended given the degree of oxygen desaturation noted during this study.
== END ==
PROVIDERS: Family Provider Family Medicine; PCP Family Medicine; Visit Provider Nurse Practitioner Acute Care
DX: R07.89 Other chest pain (principal)
CPT/HCPCS: 94618

== ENCOUNTER → 2017-06-28 11:33 | Outpatient (CLI) | payer OTHER, SELFPAY ==
[2017-06-28 13:01] LABS: Absolute Neutrophil Count 3.5 X10^3/uL (2.0-7.7); Basophil# 0.04 X10^3/uL; Basophil% 0.7 % (0-1); Eosinophil# 0.13 X10^3/uL; Eosinophils% 2.2 % (0-5); Hematocrit 42.7 % (40-54); Lymphocyte % 31.5 % (19-41); Mean Corp Hgb Conc 35.1 g/gl (32-36); Mean Corpuscular Hgb 30.5 pg (27.0-32.0); Mean Platelet Vol. 11.3 fl (6.2-12.0); Monocyte# 0.47 X10^3/uL; Monocyte% 7.8 % (0-10); Neutrophil # 3.46 X10^3/uL (2.7-7.7); Neutrophil % 57.3 % (47-70); Platelet Count 276 K/mm3 (150-450); RBC Distribution Width CV 13.2 % (11.6-14.6); RBC Distribution Width SD 40.9 fl (35.1-43.9); Red Blood Count 4.91 M/mm3 (4.6-6.2)
[2017-06-28 13:03] LABS: POSITIVE COUNT NO; POSITIVE DIFFERENTIAL NO; POSITIVE MORPHOLOGY NO
[2017-07-06 13:21] LABS: Immunoglobulin E 16 IU/mL (0-100)
== END ==
PROVIDERS: Family Provider Family Medicine; PCP Family Medicine; Visit Provider Nurse Practitioner Acute Care
DX: R06.02 Shortness of breath (principal)
CPT/HCPCS: 82785; 85025

== ENCOUNTER → 2017-11-20 09:38 | Outpatient (CLI) | payer OTHER, SELFPAY ==
--- NOTE | 2017-11-20 15:42 | BRONCHALL ---
Bronchoprovocation Challenge - Bronchoprovocation Challenge Bronchoprovocation Challenge: BRONCHOPROVOCATION STUDY INTERPRETATION Brief HPI: Patient is a 52 year old male, currently under the care of Dr. Montenegro, who presents to [facility] for a bronchoprovocation study secondary to diagnosis of dyspnea. Respiratory therapist reports good effort and reproducible results. Interpretation: Initial spirometry showed no large airways obstructive ventilatory defect. The patient was then given increasingly concentrated doses of methacholine in a stepwise fashion, using a modified ATS protocol. The patient?s maximum reduction in FEV1 was 6 percent predicted. Impression: Negative Bronchoprovocation study. This is NOT consistent with the diagnosis of asthma.
== END ==
PROVIDERS: Family Provider Family Medicine; PCP Family Medicine; Referring Provider Internal Medicine Critical Care Medicine; Visit Provider Internal Medicine Critical Care Medicine
DX: R06.02 Shortness of breath (principal)
CPT/HCPCS: 94070; 95070; J3490; J7674

== ENCOUNTER 2020-09-13 12:08 | Observation (INO) | payer OTHER, SELFPAY ==
[2020-09-13] VITALS (11 sets, daily range): BP systolic 100–146; BP diastolic 49–105; PULSE 60–79; RESP 16–29; TEMP 36.6–36.8; O2SAT 96–99; BMI 29.5; BMI 29.2
--- NOTE | 2020-09-13 13:07 | EKG12_ITS ---
Test Reason : CP Blood Pressure : / mmHG Vent. Rate : 070 BPM Atrial Rate : 070 BPM P-R Int : 138 ms QRS Dur : 088 ms QT Int : 376 ms P-R-T Axes : 008 012 010 degrees QTc Int : 406 ms Normal sinus rhythm Normal ECG Confirmed by ANMOL CORONA, TORRES ([id number]), metropolitan editor ETHEL CALLAHAN ([id number]) on 09/15/2020 10:36:25 AM Referred By: LIZ Confirmed By:TORRES COREA MD
--- NOTE | 2020-09-13 13:08 | EDS_ITS ---
HPI History of Present Illness Chief Complaint: Shortness of Breath Informant: patient Narrative Narrative: Patient is a 55-year-old male with a past medical history of diabetes, hyperlipidemia who presents to the emergency department for right- sided chest pain. He states that this has been constant over the past 2 weeks. He went to urgent care today who referred him to the emergency department. He describes as a throbbing sensation. It is worse whenever he ambulates. He does have some achiness in his right shoulder. He does get some shortness of breath with it. He does have active pain at this time that he currently rates as a 8 out of 10. He has not been taking anything for this. He denies any leg swelling or calf pain. No personal history of CAD, thromboembolism. He denies a smoking history. He has had a cough has been productive of a clear sputum. Denies fevers or chills. He has been vaccinated for coronavirus. [facility] Medical History (Updated 09/13/20 @ 15:[address] Rigoberto Eng, ) Chest pain Chronic pain History of diabetes mellitus, type II History of obesity HLD (hyperlipidemia) Restless legs syndrome (RLS) Home Medications gabapentin 800 mg PO 4X/DAY 05/11/14 [History Last Taken 05/26/17 15:00] atorvastatin 40 mg PO QHS 02/24/15 [History Last Taken 05/25/17 20:00] duloxetine 120 mg PO DAILY 02/24/15 [History Last Taken 05/26/17 08:00] lisinopril 20 mg PO DAILY 03/31/15 [History Last Taken 05/26/17 16:00] aspirin 81 mg PO DAILY 04/23/17 [History Last Taken 05/27/17 22:00] bupropion HCl 300 mg PO DAILY 04/23/17 [History Last Taken 05/27/17 20:00] cholecalciferol (vitamin D3) 1,000 unit PO DAILY 04/23/17 [History Last Taken 05/26/17 08:00] cyanocobalamin (vitamin B-12) 1,000 mcg PO DAILY@0800 04/23/17 [History Last Taken 05/26/17 08:00] ferrous sulfate 325 mg PO DAILY@0800 04/23/17 [History Last Taken 05/26/17 08:00] glipizide 5 mg PO DAILY 04/23/17 [History Last Taken 05/26/17 08:00] liraglutide 0.12 mg SQ DAILY 04/23/17 [History Last Taken 05/26/17 15:00] multivitamin with folic acid 1 tab PO DAILY 04/23/17 [History Last Taken 05/26/17 08:00] tadalafil 5 mg PO DAILY 04/23/17 [History Last Taken Unknown] carvedilol 3.125 mg PO BID #60 tab 05/28/17 [Rx Last Taken Unknown] montelukast 10 mg PO DAILY #30 tab 05/28/17 [Rx Last Taken Unknown] albuterol sulfate 90 mcg/actuation aerosol inhaler 1 - 2 puff INHALATION Q4H PRN PRN #18 g 06/05/17 [Rx Last Taken Unknown] loratadine 10 mg tablet 10 mg PO QDAY #30 tab 06/28/17 [Rx Last Taken Unknown] azelastine 137 mcg (0.1 %) nasal spray aerosol 1 spray INTRANASAL BID #30 ml 07/05/17 [Rx Last Taken Unknown] fluticasone propionate 50 mcg/actuation nasal spray,suspension 1 spray INTRANASAL BID #16 g 07/05/17 [Rx Last Taken Unknown] albuterol sulfate 2.5 mg INHALATION Q4H PRN #180 ml 08/30/17 [Rx Last Taken Unknown] fluticasone furoate 200 mcg-vilanterol 25 mcg/dose inhalation powder 1 inh INHALATION QDAY #60 ea 10/25/17 [Rx Last Taken Unknown] hydrocodone-acetaminophen [[place]] 1 tab PO Q6H PRN 09/13/20 [History Last Taken Unknown] Allergy/AdvReac Type Severity Reaction Status Date / Time amantadine Allergy Hives Verified 09/13/20 12:13 metformin [From Glucophage] Allergy Itching Verified 09/13/20 12:13 pravastatin [From Pravachol] Allergy Hives Verified 09/13/20 12:13 salmon oil Allergy Itching Verified 09/13/20 12:13 simvastatin [From Zocor] Allergy Hives Verified 09/13/20 12:13 tamsulosin Allergy Swelling Verified 09/13/20 12:13 Surgical History History of left hip replacement Social History (Updated 11/27/17 @ 11:22 by Chrissy Goff HUMAN CAPITAL MANAGER, HUMAN CAPITAL MANAGER-C) Smoking Status: Never smoker second hand exposure: No alcohol intake: never substance use type: does not use ROS ROS ED Constitutional Constitutional ED: Denies chills or fever(s) Eyes Eyes: Denies change in vision ENT ENT ED: Denies epistaxis or rhinorrhea Cardiovascular Cardiovascular: Reports chest pain; Denies palpitations Respiratory/Chest Respiratory/Chest: Reports cough, dyspnea, dyspnea on exertion and sputum Gastrointestinal Gastrointestinal: Denies abdominal pain, diarrhea, nausea or vomiting Musculoskeletal Musculoskeletal: Denies back pain or neck pain Integumentary Denies rash Neurologic Neurologic: Denies dizziness, headache(s) or weakness EXAM Physical Exam Const Vital Signs: 09/13/20 12:14 09/13/20 12:55 09/13/20 13:00 Temperature 98.3 F Temperature Source Temporal Pulse Rate 60 77 Respiratory Rate 29 H 16 Respiratory Effort Non-Labored Respiratory Depth Normal Respiratory Pattern Normal Blood Pressure 124/105 H 117/72 Blood Pressure Mean 111 87 Pulse Ox 97 99 Oxygen Delivery Method Room Air Room Air Room Air Positive well nourished and well developed General Appearance ED: well developed and NAD HEENT Reports normocephalic, head/scalp atraumatic and moist mucous membranes Eyes PERRL and EOMs intact bilaterally Neck supple Chest Wall inspection of chest normal Chest Narrative: There is tenderness to anterior right chest wall. Resp normal respiratory effort and clear to auscultation bilaterally Auscultation: Negative for rales, rhonchi or wheezes Cardio regular rate, regular rhythm and no murmurs GI normal to inspection, nondistended, normoactive bowel sounds and non-tender Palpation: soft; Negative for guarding or rebound tenderness present Extremity normal to inspection General Extremety ED: Negative for edema or tenderness General Extremity: Negative for edema Neuro no sensory deficits noted Sensorium / Orientation: alert Motor Exam: strength 5/5 throughout Psych mental status grossly normal Skin no rashes or lesions noted Heart Score History: Moderately Suspicious ECG: Normal Age: >45 - <65 years Risk Factors: 1 or 2 Risk Factors Score: 3 MDM MDM MDM Narrative Medical decision making narrative: Patient presents to the emergency department for 2 weeks worth of chest pain. On examination it is reproducible patient also states that it does get worse whenever he ambulates. On arrival to the ED he is satting well on room air. He is nontachycardic. He is in no acute distress. He is having active pain. We will give a dose of Toradol since it was reproducible. His EKG showed an S1Q3T3 pattern but otherwise no significant ST elevations or depressions. No T wave abnormalities. Otherwise. It is in an irregular rhythm with a rate of 70 bpm. At this time will check chest x-ray and basic lab work. On repeat examination patient resting comfortably. He satting 99% on room air. Not tachycardic. Not tachypneic. Chest x-ray did not reveal any acute cardiopulmonary abnormality. His troponin is within normal limits. Patient still having active right-sided chest pain so we will apply nitro and give a dose of aspirin. Given the fact that this is worsened with exacerbating himself will bring into the hospital for cardiac rule out. Covid PCR was recommended by the hospitalist and this will be obtained. At this time patient is stable throughout ED stay and is agreeable to stay in the hospital at this time. Lab Data Labs: Laboratory Results - last 24 hr 09/13/20 09/13/20 13:10 13:10 WBC 6.9 RBC 5.02 Hgb 15.4 Hct 44.8 MCV 89.2 MCH 30.7 MCHC 34.4 RDW Std Deviation 42.3 RDW Coeff of Wood 13.0 Plt Count 295 MPV 11.1 Immature Gran % (Auto) 0.400 Neut % (Auto) 56.8 Lymph % (Auto) 32.9 [place] % (Auto) 6.7 Eos % (Auto) 2.5 Baso % (Auto) 0.7 Absolute Neuts (auto) 3.9 Absolute Lymphs (auto) 2.27 Nucleated RBC % 0 Sodium 137 Potassium 4.1 Chloride 105 Carbon Dioxide 26.0 Anion Gap 6 BUN 11 Creatinine 0.73 Estim Creat Clear Calc 111.65 Est GFR (MDRD) Af Amer 142 Est GFR (MDRD) Non-Af 117 BUN/Creatinine Ratio 15.0 Glucose 205 H Calcium 9.0 Magnesium 2.0 Troponin I High Sens 7.0 Radiography Diagnostic Testing: Radiology Impression Chest X-Ray 09/13/20 13:16 IMPRESSION: No acute abnormality is present. Electronically Signed: Igor Irwin MD at 13:28 EDT , Service support , Discharge Plan Dx/Rx/DC Orders Clinical Impression: Chest pain Disposition Disposition: Acute Care Hospital [facility]
--- NOTE | 2020-09-13 13:16 | RAD_ITS ---
STUDY: X-RAY CHEST REASON FOR EXAM: Male, 55 years old. Chest pain. The patient does not feel well. TECHNIQUE: Single AP portable view of the chest. COMPARISON: Comparison is made with prior study dated 05/27/2017. FINDINGS: EKG electrodes are seen. The lungs are clear and expanded. There is no demonstrated pleural abnormality. Normal size heart. Normal mediastinum and harvey. Normal visualized pulmonary arteries. Normal visualized aortic arch and descending thoracic aorta. There are diffuse degenerative changes of the visualized thoracic spine. Electrodes from a TENS unit are seen with the tip at the T8 level. Normal visualized ribs, clavicles, and shoulders. There is no demonstrated abnormality of the visualized soft tissue structures of the upper abdomen. RAD/Chest 1 View (Portable) IMPRESSION: No acute abnormality is present. Electronically Signed: Igor Irwin MD at 13:28 EDT , Service support ,
[2020-09-13] MEDS: Ketorolac 15 MG/ML Vial IV (13:20)
[2020-09-13 13:21] LABS: Absolute Lymphocyte Count 2.27 X10^3/uL (0.83-4.51); Absolute Neutrophil Count 3.9 X10^3/uL (2.0-7.7); Basophil# 0.05 X10^3/uL; Basophil% 0.7 % (0-1); Eosinophil# 0.17 X10^3/uL; Eosinophils% 2.5 % (0-5); Hematocrit 44.8 % (40-54); Hemoglobin 15.4 g/dL (13.0-16.5); Lymphocyte # 2.27 X10^3/ul (0.83-4.51); Lymphocyte % 32.9 % (19-41); Mean Corp Hgb Conc 34.4 g/dL (32-36); Mean Corpuscular Hgb 30.7 pg (27.0-32.0); Mean Corpuscular Volume 89.2 fL (80-94); Mean Platelet Vol. 11.1 fl (6.2-12.0); Monocyte# 0.46 X10^3/uL; Monocyte% 6.7 % (0-10); NRBC Flagged by Analyzer 0 % (0-5); Neutrophil # 3.92 X10^3/uL (2.7-7.7); Neutrophil % 56.8 % (47-70); Platelet Count 295 K/mm3 (150-450); RBC Distribution Width SD 42.3 fl (35.1-43.9); Red Blood Count 5.02 M/mm3 (4.6-6.2); White Blood Count 6.9 K/mm3 (4.4-11.0)
[2020-09-13 13:43] LABS: Anion Gap 6 (5-15); BUN 11 mg/dL (7-18); Chloride 105 mmol/L (98-107); Creatinine, Serum 0.73 mg/dL (0.70-1.30); EST Glomerular Filtration Rate 117 mL/min (>60); Est Glom Filt Rate - Afr Amer 142 mL/min (>60); Estimated Creatinine Clearance 111.65 ml/min; Glucose 205 mg/dL (74-106); Potassium 4.1 mmol/L (3.5-5.1); Sodium Level 137 mmol/L (136-145)
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
[2020-09-13] MEDS: Aspirin 81 MG TAB.CHEW 324 MG PO (15:11)
[2020-09-13] MEDS: Nitroglycerin Oint 1 INCH PACKET TD (15:11)
[2020-09-13 15:40] LABS: D-Dimer Quantitative (DVT/PE) 0.52 FEU/ug/m (0.27-0.49)
--- NOTE | 2020-09-13 15:50 | EKG12_ITS ---
Test Reason : Blood Pressure : / mmHG Vent. Rate : 066 BPM Atrial Rate : 066 BPM P-R Int : 154 ms QRS Dur : 090 ms QT Int : 422 ms P-R-T Axes : 019 008 010 degrees QTc Int : 442 ms Sinus rhythm with Premature atrial complexes Otherwise normal ECG Confirmed by ANMOL CORONA, TORRES ([id number]), commissioning editor ETHEL CALLAHAN ([id number]) on 09/15/2020 10:48:17 AM Referred By: JACQUELYN Confirmed By:TORRES COREA MD
[2020-09-13 15:53] LABS: BNP,B-Type NATRIURETIC PEPTIDE 66.9 pg/mL (0-100)
[2020-09-13 16:07] LABS: Procalcitonin 0.04 ng/mL (0.00-0.09)
[2020-09-13 16:17] LABS: AST(SGOT) 20 U/L (15-37); Alanine Aminotransfer ALT/SGPT 28 U/L (16-61); Albumin, Serum 3.3 g/dL (3.2-5.0); Alkaline Phosphatase 56 U/L (45-117); Bilirubin, Direct 0.13 mg/dL (0.00-0.30); CRP < 2.90 mg/L (0.0-3.0); Ferritin 31 ng/mL (26-388); LDH 271 U/L (87-241); Protein, Total 6.3 g/dL (6.4-8.2)
[2020-09-13] MEDS: Insulin Lispro 100 UNIT/ML INSULN.PEN SC ×2 (16:53→21:08)
[2020-09-13] MEDS: Gabapentin 800 MG Tablet PO ×2 (17:56→21:06)
[2020-09-13] MEDS: 0.9% Normal Saline 1,000 ML 100 ML IV (17:56)
[2020-09-13] MEDS: oxyCODONE 5 MG Tablet PO (17:57)
[2020-09-13 18:58] LABS: Bedside Glucose 165 mg/dL (70-110)
[2020-09-13 19:10] LABS: Troponin-I HS 7.3 pg/mL (3.0-78.5)
[2020-09-13] MEDS: Ipratropium/Albuterol Sulfate 3 ML AMPUL.NEB INHALATION (19:13)
[2020-09-13 19:59] LABS: Troponin-I HS 6.9 pg/mL (3.0-78.5)
[2020-09-13] MEDS: Fluticasone 0.05% 1 SPRAY NASAL.SRY NASAL (21:03)
[2020-09-13] MEDS: Azelastine HCl NASAL.SRY 1 SPRAY NASAL (21:04)
[2020-09-13] MEDS: Atorvastatin Calcium 40 MG Tablet PO (21:05)
[2020-09-13] MEDS: Montelukast 10 MG Tablet PO (21:05)
[2020-09-13] MEDS: Acetaminophen 325 MG Tablet 650 MG PO (21:19)
[2020-09-13 22:05] LABS: Bedside Glucose 327 mg/dL (70-110)
[2020-09-14] VITALS (7 sets, daily range): BP systolic 133–159; BP diastolic 72–92; PULSE 56–79; RESP 18–20; TEMP 36.5–36.6; O2SAT 95–100
[2020-09-14] MEDS: 0.9% Normal Saline 1,000 ML 100 ML IV ×2 (03:32→12:31)
[2020-09-14] MEDS: oxyCODONE 5 MG Tablet PO ×3 (03:50→14:32)
[2020-09-14] MEDS: Aspirin E.C. 81 MG Tablet PO (06:02)
[2020-09-14] MEDS: Lisinopril 20 MG Tablet PO (06:02)
[2020-09-14 06:26] LABS: Bedside Glucose 188 mg/dL (70-110)
[2020-09-14 06:37] LABS: Absolute Lymphocyte Count 1.84 X10^3/uL (0.83-4.51); Absolute Neutrophil Count 4.2 X10^3/uL (2.0-7.7); Basophil# 0.04 X10^3/uL; Basophil% 0.6 % (0-1); Eosinophil# 0.21 X10^3/uL; Eosinophils% 3.1 % (0-5); Hemoglobin 13.2 g/dL (13.0-16.5); Lymphocyte # 1.84 X10^3/ul (0.83-4.51); Lymphocyte % 26.9 % (19-41); Mean Corp Hgb Conc 33.8 g/dL (32-36); Mean Corpuscular Hgb 30.7 pg (27.0-32.0); Mean Corpuscular Volume 90.7 fL (80-94); Mean Platelet Vol. 11.4 fl (6.2-12.0); Monocyte# 0.55 X10^3/uL; NRBC Flagged by Analyzer 0 % (0-5); Neutrophil # 4.17 X10^3/uL (2.7-7.7); Platelet Count 251 K/mm3 (150-450); RBC Distribution Width CV 12.9 % (11.6-14.6); RBC Distribution Width SD 42.7 fl (35.1-43.9); White Blood Count 6.8 K/mm3 (4.4-11.0)
[2020-09-14] MEDS: Ipratropium/Albuterol Sulfate 3 ML AMPUL.NEB INHALATION ×2 (07:04→13:30)
[2020-09-14 07:05] LABS: ALB/GLOB Ratio 1.2 RATIO (0.9-2.4); AST(SGOT) 15 U/L (15-37); Alanine Aminotransfer ALT/SGPT 26 U/L (16-61); Albumin, Serum 3.4 g/dL (3.2-5.0); Alkaline Phosphatase 57 U/L (45-117); Anion Gap 7 (5-15); BUN 11 mg/dL (7-18); Calcium,Total 8.1 mg/dL (8.5-10.1); Chloride 108 mmol/L (98-107); Cholesterol 127 mg/dL (200); Creatinine, Serum 0.58 mg/dL (0.70-1.30); EST Glomerular Filtration Rate 154 mL/min (>60); Est Glom Filt Rate - Afr Amer 186 mL/min (>60); Estimated Creatinine Clearance 140.52 ml/min; Globulin 2.8 g/dL (2.2-4.2); Glucose 189 mg/dL (74-106); High Density Lipoprotein 28 mg/dL; Protein, Total 6.2 g/dL (6.4-8.2); Sodium Level 139 mmol/L (136-145); Triglycerides 76 mg/dL; Very Low Density Lipoprotein 15 mg/dL (5-40)
[2020-09-14] MEDS: DULoxetine Hcl 60 MG Capsule 120 MG PO (10:16)
[2020-09-14] MEDS: Carvedilol 3.125 MG TABLET PO (10:16)
[2020-09-14] MEDS: Ferrous Sulfate 325 MG Tablet PO (10:17)
[2020-09-14] MEDS: Fluticasone 0.05% 1 SPRAY NASAL.SRY NASAL (10:17)
[2020-09-14] MEDS: Gabapentin 800 MG Tablet PO ×2 (10:17→14:30)
[2020-09-14] MEDS: Loratadine 10 MG Tablet PO (10:17)
[2020-09-14] MEDS: buPROPion (XL) 300 MG TABLET.XL PO (10:17)
[2020-09-14] MEDS: Azelastine HCl NASAL.SRY 1 SPRAY NASAL (10:18)
--- NOTE | 2020-09-14 10:54 | CT_ITS ---
STUDY: CTA CHEST REASON FOR EXAM: Male, 55 years old. Elevated D-Dimer w/ CP SOB. RADIATION DOSAGE (If Supplied By Facility): CTDIvol = ( 12.61 ) mGy, DLP = ( 441.88 ) mGycm TECHNIQUE: The examination was performed with the intravenous administration of IV 100mL Isovue-370. Post-processing of the angiographic images was performed, with multiplanar reformation and 3D reconstruction. Individualized dose optimization techniques were used for this CT. COMPARISON: Comparison is made with prior chest radiograph dated 09/13/2020. FINDINGS: Normal enhancement of the main pulmonary artery and right and left pulmonary arteries. Normal enhancement of the bilateral peripheral pulmonary arteries. There is no demonstrated pulmonary embolism. There is atherosclerotic calcification of the aortic arch with tortuosity. There is no demonstrated aortic dissection. Normal heart and pericardium. Normal mediastinum. Normal hilar regions. Normal visualized trachea and bronchi. The lungs are well expanded. Normal pulmonary parenchyma. Calcified granuloma in the posterior aspect of the superior segment of the left lower lobe. Normal pleura. Normal chest wall structures. There are degenerative changes of thoracic spine. Small gallstone is seen along the dependent portion of the gallbladder lumen. The patient is status post subtotal gastrectomy. Small hiatal hernia. CT/CTA Chest W/WO Contrast IMPRESSION: No acute abnormality is seen. Electronically Signed: Igor Irwin MD at 12:51 EDT , Service support ,
[2020-09-14 12:01] LABS: Bedside Glucose 251 mg/dL (70-110)
[2020-09-14] MEDS: Acetaminophen 325 MG Tablet 650 MG PO (12:30)
--- NOTE | 2020-09-14 13:09 | STRESSREP ---
Stress Test Report Date: 09-14-2020 Procedure: Pharmacologic stress nuclear imaging study Indications: Chest pain Consent: Per the patient Procedure: The patient underwent pharmacologic (Regadenoson 0.4mg ) evaluation with a peak heart rate of 80 beats per minute (49%predicted maximal heart rate) and a peak blood pressure of 150/82 mmHg. The baseline ECG demonstrated sinus bradycardia. The peak pharmacologic ECG demonstrated no obvious ECG changes. There were no cardiac dysrhythmias pretest, during pharmacologic infusion, or recovery. There was no complaint of chest discomfort during pharmacologic infusion or recovery. The examination was discontinued secondary to completion of protocol. Impression: 1. Pharmacologic (Regadenoson) evaluation 2. Peak pharmacologic ECG with no obvious ECG changes. 3. There were no cardiac dysrhythmias pretest, during pharmacologic infusion, or recovery. 4. Nuclear images pending Myocardial perfusion imaging study: Technique: The patient was injected with 14.4 millicuries of technetium 99m Cardiolite and subsequently rest SPECT Cardiolite nuclear imaging was obtained in the horizontal long, vertical long, and short axis views. The patient underwent pharmacologic (Regadenoson) evaluation with a peak heart rate of 80 beats per minute (49% percent predicted maximal heart rate) and a peak blood pressure of 150/82 mmHg. The patient was injected with 45.0 millicuries of technetium 99m Cardiolite and subsequently stress SPECT Cardiolite nuclear imaging was obtained in the horizontal long, vertical long, and short axis views. A gated Cardiolite study at peak stress was obtained. Interpretation: Rest and stress SPECT Cardiolite nuclear imaging status post realignment, normalization, and attenuation correction demonstrate an element of body motion during image acquisition and otherwise relative uniform tracer uptake and myocardial perfusion appearing within normal limits. There is end systolic thickening and brightening. The gated Cardiolite study demonstrates myocardial thickening and inward wall motion. The reported LVEF is 65%. Impression: 1. Rest and stress SPECT Cardiolite nuclear imaging demonstrate an element of body motion during image acquisition and otherwise relative uniform tracer uptake and myocardial perfusion appearing within normal limits. 2. The gated Cardiolite study reports an LVEF of 65%. This note was generated with [employer] software. It may contain incorrect words, spelling, and punctuation that were not noted in checking the note before signing.
--- NOTE | 2020-09-14 13:26 | PCM.DC ---
Discharge Instructions Diet Discharge Diet: No restrictions Activity Discharge Activity: Return to Normal Activity Weight Bearing Status: Weight bearing as tolerated Dressing / Incision Call your doctor if you observe: Fever of 101 or Higher, Numbness or Tingling, Shortness of breath, Dizziness, Chest pain, Increased palpitations (irregular heartbeat) and Calf discomfort Follow Up Care Please Follow Up With: Primary care provider When: Within the next two weeks. Test Results: Test results from this visit will be discussed in further detail at your follow-up appointment, if applicable. Discharge Plan Admission Admit Date/Time: 09/13/20 15:01 Primary Reason for Your Visit: Chest pain Attending Provider: Joaquin Jeffrey Primary Care Provider: Rocael Bustamante Instructions Patient Instructions: ED Chest Pain, Noncardiac Discharge Orders/Prescriptions Prescriptions: Continued albuterol sulfate 2.5 mg /3 mL (0.083 %) solution for nebulization 2.5 mg INHALATION Q4H PRN (Reason: shortness of breath or wheezing) Qty: 180 RF: 3 atorvastatin 40 MG tablet 40 mg PO QHS RF: 0 duloxetine 60 MG capsule 120 mg PO DAILY RF: 0 lisinopril 20 MG tablet 20 mg PO DAILY RF: 0 aspirin 81 MG tablet,delayed release (DR/EC) 81 mg PO DAILY RF: 0 glipizide 5 MG tablet 5 mg PO DAILY RF: 0 bupropion HCl 300 MG tablet extended release 24 hr 300 mg PO DAILY RF: 0 tadalafil 5 MG tablet 5 mg PO DAILY RF: 0 liraglutide 0.6 MG/0.1 ML pen injector 0.12 mg SQ DAILY RF: 0 cyanocobalamin (vitamin B-12) 500 MCG tablet 1,000 mcg PO DAILY@0800 RF: 0 ferrous sulfate 325 MG tablet 325 mg PO DAILY@0800 RF: 0 cholecalciferol (vitamin D3) 1,000 UNIT tablet 1,000 unit PO DAILY RF: 0 multivitamin with folic acid 1 TABLET tablet 1 tab PO DAILY RF: 0 montelukast 10 MG tablet 10 mg PO DAILY Qty: 30 RF: 0 carvedilol 3.125 MG tablet 3.125 mg PO BID Qty: 60 RF: 0 hydrocodone-acetaminophen 5-325 mg Tablet 1 tab PO Q6H PRN (Reason: pain) RF: 0 gabapentin 800 mg tablet 800 mg PO 4X/DAY RF: 0 loratadine 10 mg tablet 10 mg PO DAILY RF: 0 albuterol sulfate 90 mcg/actuation HFA aerosol inhaler 1 - 2 puff INHALATION Q4H PRN PRN (Reason: Dyspnea, wheezing) Qty: 18 RF: 6 azelastine 137 mcg (0.1 %) aerosol,spray 1 spray INTRANASAL BID Qty: 30 RF: 3 fluticasone propionate 50 mcg/actuation spray,suspension 1 spray INTRANASAL BID Qty: 16 RF: 3 fluticasone furoate-vilanterol [Breo Ellipta] 200-25 mcg/dose blister with device 1 inh INHALATION QDAY Qty: 60 RF: 6 Referrals / Follow Up: Rocael Bustamante MD [Primary Care Provider] - Within 2 Weeks Disposition Disposition (needs filled in before D/C Order can be placed): Home, Self Care
--- NOTE | 2020-09-14 13:29 | DS.PCM_ITS ---
Documented by User: Abner HERMOSILLO 09/14/20 13:35 Providers Date of Admission: 09/13/20 Primary Care Physician: Rocael Bustamante MD Reason For Visit: CHEST PAIN Diagnosis Discharge Diagnosis (1) Chest pain: Status: Acute Code(s): R07.9 - Chest pain, unspecified Qualifiers: Chest pain type: unspecified Qualified Code(s): R07.9 - Chest pain, unspecified Medications at Discharge Home Medications atorvastatin 40 mg PO QHS 02/24/15 duloxetine 120 mg PO DAILY 02/24/15 lisinopril 20 mg PO DAILY 03/31/15 aspirin 81 mg PO DAILY 04/23/17 bupropion HCl 300 mg PO DAILY 04/23/17 cholecalciferol (vitamin D3) 1,000 unit PO DAILY 04/23/17 cyanocobalamin (vitamin B-12) 1,000 mcg PO DAILY@0800 04/23/17 ferrous sulfate 325 mg PO DAILY@0800 04/23/17 glipizide 5 mg PO DAILY 04/23/17 liraglutide 0.12 mg SQ DAILY 04/23/17 multivitamin with folic acid 1 tab PO DAILY 04/23/17 tadalafil 5 mg PO DAILY 04/23/17 carvedilol 3.125 mg PO BID #60 tab 05/28/17 montelukast 10 mg PO DAILY #30 tab 05/28/17 albuterol sulfate 90 mcg/actuation aerosol inhaler 1 - 2 puff INHALATION Q4H PRN PRN #18 g 06/05/17 azelastine 137 mcg (0.1 %) nasal spray aerosol 1 spray INTRANASAL BID #30 ml 07/05/17 fluticasone propionate 50 mcg/actuation nasal spray,suspension 1 spray INTRANASAL BID #16 g 07/05/17 albuterol sulfate 2.5 mg INHALATION Q4H PRN #180 ml 08/30/17 fluticasone furoate 200 mcg-vilanterol 25 mcg/dose inhalation powder 1 inh INHALATION QDAY #60 ea 10/25/17 gabapentin 800 mg PO 4X/DAY 09/13/20 hydrocodone-acetaminophen 1 tab PO Q6H PRN 09/13/20 loratadine 10 mg PO DAILY 09/13/20 Hospital Course Procedures Angiogram and Nuclear stress test Summary of Care Provided Minutes Spent on Discharge: 35 Hospital Course: Disposition: Patient to be discharged home, no additional therapies or home health care needs identified. 1) chest pain/ACS rule out High-sensitivity troponins not elevated. Stress test demonstrated normal myoc ardial perfusion and an estimated EF of 65%, and demonstrated no evidence of ischemia. Vital signs stable and patient is afebrile currently satting 98% on room air. Patient reports resolution of chest pain from admission. Patient to be discharged home and is to follow-up with primary care provider within the next 2 weeks. 2) elevated D-dimer D-dimer elevated upon admission, CT-A did not demonstrate any evidence of pulmonary embolism or arterial dissection. 2) rhinovirus infection Patient denies any shortness of breath or hemoptysis, however still endorses mild clear sputum production. Patient is afebrile and vital signs are stable. Patient is without leukocytosis and does not demonstrate any signs of infection and is to follow-up with primary care provider within the next 2 weeks. Patient seen by Abner Mims PA-C, under the supervision of Dr. Jeffrey. Physical Exam Narrative Patient is a 55-year-old male comfortably resting in bed, alert and orient x3. Reports resolution of chest pain from admission. Versus mild phlegm production. Denies chest pain, shortness of breath, palpitations, hemoptysis, fever, chills, N/V/D. Const alert, oriented x3 and no apparent distress HEENT normocephalic, head/scalp atraumatic and hearing grossly normal bilaterally Eyes EOMs intact bilaterally and conjunctivae normal Neck no lymphadenopathy, supple and no JVD Resp normal respiratory effort, no retractions, no use of accessory muscles and clear to auscultation bilaterally Cardio regular rhythm, no murmurs and no JVD Rate: bradycardia GI normal to inspection, nondistended, normoactive bowel sounds, soft to palpation and non-tender Extremity normal to inspection, full ROM and no clubbing, cyanosis or edema Skin no rashes or lesions noted, no wounds and skin turgor normal Neuro CN's II-XII intact bilaterally Psych affect normal Medical Records Data Medical Nutrition Assessment Dietitian: Nutrition Therapy Diagnosis Start: 09/13/20 16:56 Freq: Status: Active Protocol: Document 09/13/20 17:05 CLAUDIO (Rec: 09/13/20 17:05 [facility] [id number]) Nutrition Malnutrition Evidence of Malnutrition Exists No Clinical Problem Altered Nutrient-Related Laboratory Values Etiology related to endocrine dysfunction Signs/Symptoms as evidenced by gluc 205 Status Active Problem Recommendation Dietitian Recommendations/Changes Will continue diet as ordered Please re-consult if pt desires diet education prior to discharge Weight / BMI Weight Weight: 198 lb 10.184 oz Body Mass Index (BMI) 29.2 ABG / Lab / Microbiology Data Result Diagrams: 09/14/20 05:50 09/14/20 05:50 Laboratory: Laboratory Results - last 24 hr 09/13/20 13:10: Sodium 137, Potassium 4.1, Chloride 105, Carbon Dioxide 26.0, Anion Gap 6, BUN 11, Creatinine 0.73, Estim Creat Clear Calc 111.65, Est GFR (MD RD) Af Amer 142, Est GFR (MDRD) Non-Af 117, BUN/Creatinine Ratio 15.0, Glucose 205 H, Calcium 9.0, Magnesium 2.0, Troponin I High Sens 7.0 09/13/20 13:10: Ferritin 31, Total Bilirubin 0.60, Direct Bilirubin 0.13, AST 20, ALT 28, Alkaline Phosphatase 56, Lactate Dehydrogenase 271 H, C-React Prot Ext Range < 2.90, Total Protein 6.3 L, Albumin 3.3, Globulin 3.0 09/13/20 13:10: B-Natriuretic Peptide 66.9 09/13/20 13:10: Procalcitonin 0.04 09/13/20 15:05: COVID-19 (ROSANNA) Not Detected 09/13/20 15:05: D-Dimer Quant (PE/DVT) 0.52 H* 09/13/20 16:41: Troponin I High Sens 7.3 09/13/20 16:50: POC Glucose 165 H 09/13/20 18:55: Troponin I High Sens 6.9 09/13/20 21:02: POC Glucose 327 H 09/14/20 05:50: WBC 6.8, RBC 4.30 L, Hgb 13.2, Hct 39.0 L, MCV 90.7, MCH 30.7, MCHC 33.8, RDW Std Deviation 42.7, RDW Coeff of Wood 12.9, Plt Count 251, MPV 11.4, Immature Gran % (Auto) 0.400, Neut % (Auto) 61.0, Lymph % (Auto) 26.9, Larue % (Auto) 8.0, Eos % (Auto) 3.1, Baso % (Auto) 0.6, Absolute Neuts (auto) 4.2, Absolute Lymphs (auto) 1.84, Nucleated RBC % 0 09/14/20 05:50: Sodium 139, Potassium 4.0, Chloride 108 H, Carbon Dioxide 24.0, Anion Gap 7, BUN 11, Creatinine 0.58 L, Estim Creat Clear Calc 140.52, Est GFR (MDRD) Af Amer 186, Est GFR (MDRD) Non-Af 154, BUN/Creatinine Ratio 19.0, Glucose 189 H, Calcium 8.1 L, Total Bilirubin 0.60, AST 15, ALT 26, Alkaline Phosphatase 57, Total Protein 6.2 L, Albumin 3.4, Globulin 2.8, Albumin/Globulin Ratio 1.2, Triglycerides 76, Cholesterol 127, LDL Cholesterol 84, VLDL Cholesterol 15, HDL Cholesterol 28 L 09/14/20 06:05: POC Glucose 188 H 09/14/20 11:49: POC Glucose 251 H Microbiology: Microbiology 09/13/20 19:43 Interface Orders Respiratory Panel (PCR) - Final Rhinovirus 09/13/20 22:00 Urine, Clean Catch Legionella Antigen - Final 09/13/20 22:00 Urine, Clean Catch Streptococcus pneumoniae Antigen (M - Final Radiography Diagnostic Testing: Radiology Impression Chest X-Ray 09/13/20 13:16 IMPRESSION: No acute abnormality is present. Electronically Signed: Igor Irwin MD at 13:28 EDT , Service support , Chest CTA 09/14/20 10:54 IMPRESSION: No acute abnormality is seen. Electronically Signed: Igor Irwin MD at 12:51 EDT , Service support , D/C Instructions Discharge Diet: No restrictions Weight Bearing Status: Weight bearing as tolerated Call your doctor if you observe: Fever of 101 or Higher, Numbness or Tingling, Shortness of breath, Dizziness, Chest pain, Increased palpitations (irregular heartbeat) and Calf discomfort Please Follow Up With: Primary care provider When: Within the next two weeks. Meaningful Use Info Meaningful Use Diagnoses (Choose all that apply): None applicable Discharge Plan Admission Admit Date/Time: 09/13/20 15:01 Primary Reason for Your Visit: Chest pain Attending Provider: Joaquin Jeffrey Primary Care Provider: Rocael Bustamante Instructions Patient Instructions: ED Chest Pain, Noncardiac Discharge Orders/Prescriptions Prescriptions: Continued albuterol sulfate 2.5 mg /3 mL (0.083 %) solution for nebulization 2.5 mg INHALATION Q4H PRN (Reason: shortness of breath or wheezing) Qty: 180 RF: 3 atorvastatin 40 MG tablet 40 mg PO QHS RF: 0 duloxetine 60 MG capsule 120 mg PO DAILY RF: 0 lisinopril 20 MG tablet 20 mg PO DAILY RF: 0 aspirin 81 MG tablet,delayed release (DR/EC) 81 mg PO DAILY RF: 0 glipizide 5 MG tablet 5 mg PO DAILY RF: 0 bupropion HCl 300 MG tablet extended release 24 hr 300 mg PO DAILY RF: 0 tadalafil 5 MG tablet 5 mg PO DAILY RF: 0 liraglutide 0.6 MG/0.1 ML pen injector 0.12 mg SQ DAILY RF: 0 cyanocobalamin (vitamin B-12) 500 MCG tablet 1,000 mcg PO DAILY@0800 RF: 0 ferrous sulfate 325 MG tablet 325 mg PO DAILY@0800 RF: 0 cholecalciferol (vitamin D3) 1,000 UNIT tablet 1,000 unit PO DAILY RF: 0 multivitamin with folic acid 1 TABLET tablet 1 tab PO DAILY RF: 0 montelukast 10 MG tablet 10 mg PO DAILY Qty: 30 RF: 0 carvedilol 3.125 MG tablet 3.125 mg PO BID Qty: 60 RF: 0 hydrocodone-acetaminophen 5-325 mg Tablet 1 tab PO Q6H PRN (Reason: pain) RF: 0 gabapentin 800 mg tablet 800 mg PO 4X/DAY RF: 0 loratadine 10 mg tablet 10 mg PO DAILY RF: 0 albuterol sulfate 90 mcg/actuation HFA aerosol inhaler 1 - 2 puff INHALATION Q4H PRN PRN (Reason: Dyspnea, wheezing) Qty: 18 RF: 6 azelastine 137 mcg (0.1 %) aerosol,spray 1 spray INTRANASAL BID Qty: 30 RF: 3 fluticasone propionate 50 mcg/actuation spray,suspension 1 spray INTRANASAL BID Qty: 16 RF: 3 fluticasone furoate-vilanterol [Breo Ellipta] 200-25 mcg/dose blister with device 1 inh INHALATION QDAY Qty: 60 RF: 6 Referrals / Follow Up: Rocael Bustamante MD [Primary Care Provider] - Within 2 Weeks Disposition Disposition (needs filled in before D/C Order can be placed): Home, Self Care Documented by User: Dr. Joaquin Jeffrey MD 09/14/20 14:06 Providers Date of Admission: 09/13/20 Reason For Visit: CHEST PAIN Medications at Discharge Home Medications atorvastatin 40 mg PO QHS 02/24/15 duloxetine 120 mg PO DAILY 02/24/15 lisinopril 20 mg PO DAILY 03/31/15 aspirin 81 mg PO DAILY 04/23/17 bupropion HCl 300 mg PO DAILY 04/23/17 cholecalciferol (vitamin D3) 1,000 unit PO DAILY 04/23/17 cyanocobalamin (vitamin B-12) 1,000 mcg PO DAILY@0800 04/23/17 ferrous sulfate 325 mg PO DAILY@0800 04/23/17 glipizide 5 mg PO DAILY 04/23/17 liraglutide 0.12 mg SQ DAILY 04/23/17 multivitamin with folic acid 1 tab PO DAILY 04/23/17 tadalafil 5 mg PO DAILY 04/23/17 carvedilol 3.125 mg PO BID #60 tab 05/28/17 montelukast 10 mg PO DAILY #30 tab 05/28/17 albuterol sulfate 90 mcg/actuation aerosol inhaler 1 - 2 puff INHALATION Q4H PRN PRN #18 g 06/05/17 azelastine 137 mcg (0.1 %) nasal spray aerosol 1 spray INTRANASAL BID #30 ml 05/31/18 fluticasone propionate 50 mcg/actuation nasal spray,suspension 1 spray INTRANASAL BID #16 g 07/05/17 albuterol sulfate 2.5 mg INHALATION Q4H PRN #180 ml 08/30/17 fluticasone furoate 200 mcg-vilanterol 25 mcg/dose inhalation powder 1 inh INHALATION QDAY #60 ea 10/25/17 gabapentin 800 mg PO 4X/DAY 09/13/20 hydrocodone-acetaminophen 1 tab PO Q6H PRN 09/13/20 loratadine 10 mg PO DAILY 09/13/20 Hospital Course Operations None Summary of Care Provided Hospital Course: This patient was seen in conjunction with Abner Mims PA-C. I have independently interviewed and examined the patient and reviewed pertinent historical, laboratory, and other data. Please refer to Abner Mmis PA-C's note for details of this patient's presentation, findings, and recommendations. I have reviewed Abner Mims PA-C's note and concur with documented findings. In brief, patient is a 55-year-old gentleman admitted with chest pain. Patient was admitted to monitored bed where ND was ruled out with serial cardiac enz ymes. Subsequently underwent a nuclear stress test which was negative for stress-induced ischemia Patient was also found to have elevated D-dimer and underwent CTA of the chest which was negative for PE nor dissection. Subsequently discharged home instructed to follow-up with PCP for subsequent care Hospital course; as documented above ABG / Lab / Microbiology Data Result Diagrams: 09/14/20 05:50 09/14/20 05:50 Discharge Plan Admission Admit Date/Time: 09/13/20 15:01 Primary Reason for Your Visit: Chest pain Attending Provider: Joaquin Jfefrey Primary Care Provider: Rocael Bustamante Instructions Patient Instructions: ED Chest Pain, Noncardiac Discharge Orders/Prescriptions Prescriptions: Continued albuterol sulfate 2.5 mg /3 mL (0.083 %) solution for nebulization 2.5 mg INHALATION Q4H PRN (Reason: shortness of breath or wheezing) Qty: 180 RF: 3 atorvastatin 40 MG tablet 40 mg PO QHS RF: 0 duloxetine 60 MG capsule 120 mg PO DAILY RF: 0 lisinopril 20 MG tablet 20 mg PO DAILY RF: 0 aspirin 81 MG tablet,delayed release (DR/EC) 81 mg PO DAILY RF: 0 glipizide 5 MG tablet 5 mg PO DAILY RF: 0 bupropion HCl 300 MG tablet extended release 24 hr 300 mg PO DAILY RF: 0 tadalafil 5 MG tablet 5 mg PO DAILY RF: 0 liraglutide 0.6 MG/0.1 ML pen injector 0.12 mg SQ DAILY RF: 0 cyanocobalamin (vitamin B-12) 500 MCG tablet 1,000 mcg PO DAILY@0800 RF: 0 ferrous sulfate 325 MG tablet 325 mg PO DAILY@0800 RF: 0 cholecalciferol (vitamin D3) 1,000 UNIT tablet 1,000 unit PO DAILY RF: 0 multivitamin with folic acid 1 TABLET tablet 1 tab PO DAILY RF: 0 montelukast 10 MG tablet 10 mg PO DAILY Qty: 30 RF: 0 carvedilol 3.125 MG tablet 3.125 mg PO BID Qty: 60 RF: 0 hydrocodone-acetaminophen 5-325 mg Tablet 1 tab PO Q6H PRN (Reason: pain) RF: 0 gabapentin 800 mg tablet 800 mg PO 4X/DAY RF: 0 loratadine 10 mg tablet 10 mg PO DAILY RF: 0 albuterol sulfate 90 mcg/actuation HFA aerosol inhaler 1 - 2 puff INHALATION Q4H PRN PRN (Reason: Dyspnea, wheezing) Qty: 18 RF: 6 azelastine 137 mcg (0.1 %) aerosol,spray 1 spray INTRANASAL BID Qty: 30 RF: 3 fluticasone propionate 50 mcg/actuation spray,suspension 1 spray INTRANASAL BID Qty: 16 RF: 3 fluticasone furoate-vilanterol [Breo Ellipta] 200-25 mcg/dose blister with device 1 inh INHALATION QDAY Qty: 60 RF: 6 Referrals / Follow Up: Rocael Bustamante MD [Primary Care Provider] - Within 2 Weeks Disposition Disposition (needs filled in before D/C Order can be placed): Home, Self Care Charges/Coding Visit Charges OBSV E&M: 23653 Observation care discharge Hospital Course Imaging Results Imaging Results: 09/14/20 05:55 Nuclear Stress Test - Chemical [NM] AM (NON MEDS) 09/14/20 10:54 CTA Chest W/WO Contrast [CT] Urgent Operations None
== END 2020-09-14 13:28 | disposition home or self-care (01) ==
LOC: ED 15:05 → PCU 15:26
PROVIDERS: Admitting Provider Family Medicine; Emergency Provider Emergency Medicine; PCP Family Medicine; Visit Provider Internal Medicine
DX: R07.89 Other chest pain (principal); B34.8 Other viral infections of unspecified site; R79.89 Other specified abnormal findings of blood chemistry; E11.9 Type 2 diabetes mellitus without complications; E78.5 Hyperlipidemia, unspecified; G25.81 Restless legs syndrome; G89.4 Chronic pain syndrome; F41.9 Anxiety disorder, unspecified; I10 Essential (primary) hypertension; D50.9 Iron deficiency anemia, unspecified; F32.9 Major depressive disorder, single episode, unspecified; J45.909 Unspecified asthma, uncomplicated; Z79.899 Other long term (current) drug therapy; Z79.51 Long term (current) use of inhaled steroids; Z79.84 Long term (current) use of oral hypoglycemic drugs; Z79.82 Long term (current) use of aspirin; Z98.84 Bariatric surgery status; R06.02 Shortness of breath
CPT/HCPCS: 36415; 71045; 71275; 78452; 80048; 80053; 80061; 80076; 82728; 82962; 83615; 83735; 83880; 84145; 84484; 85025; 85379; 86140; 87449; 87633; 87635; 93005; 93017; 94640; 96361; 96374; 97802; 99218; 99251; 99285; A9500; J7030; Q9967; U0005; A4216; G0378; G0463; J2785; U0003

== ENCOUNTER → 2021-07-14 | Outpatient (CLI) | payer OTHER, SELFPAY ==
[2021-07-14 10:22] LABS: Absolute Lymphocyte Count 1.77 X10^3/uL (0.83-4.51); Absolute Neutrophil Count 3.7 X10^3/uL (2.0-7.7); Basophil# 0.05 X10^3/uL; Basophil% 0.8 % (0-1); Eosinophil# 0.09 X10^3/uL; Eosinophils% 1.5 % (0-5); Hematocrit 41.6 % (40-54); Hemoglobin 14.5 g/dL (13.0-16.5); Lymphocyte # 1.77 X10^3/ul (0.83-4.51); Lymphocyte % 29.4 % (19-41); Mean Corp Hgb Conc 34.9 g/dL (32-36); Mean Corpuscular Hgb 31.5 pg (27.0-32.0); Mean Corpuscular Volume 90.4 fL (80-94); Mean Platelet Vol. 11.4 fl (6.2-12.0); Monocyte# 0.41 X10^3/uL; Monocyte% 6.8 % (0-10); NRBC Flagged by Analyzer 0 % (0-5); Neutrophil # 3.68 X10^3/uL (2.7-7.7); Neutrophil % 61.2 % (47-70); Platelet Count 225 K/mm3 (150-450); RBC Distribution Width CV 12.2 % (11.6-14.6); RBC Distribution Width SD 40.2 fl (35.1-43.9)
[2021-07-14 10:43] LABS: Hemoglobin A1c 9.1 % (3.8-5.6)
== END | disposition home or self-care (01) ==
LOC: MTLAB 09:14
PROVIDERS: PCP Family Medicine; Referring Provider Family Medicine; Visit Provider Family Medicine
DX: D64.9 Anemia, unspecified (principal); E11.65 Type 2 diabetes mellitus with hyperglycemia
CPT/HCPCS: 36415; 83036; 85025

== ENCOUNTER 2021-10-25 09:06 | Outpatient (CLI) | payer OTHER, SELFPAY ==
[2021-10-25 09:58] LABS: Absolute Lymphocyte Count 1.63 X10^3/uL (0.83-4.51); Basophil# 0.04 X10^3/uL; Basophil% 0.8 % (0-1); Eosinophil# 0.11 X10^3/uL; Eosinophils% 2.1 % (0-5); Hematocrit 40.5 % (40-54); Hemoglobin 13.8 g/dL (13.0-16.5); Lymphocyte # 1.63 X10^3/ul (0.83-4.51); Lymphocyte % 30.6 % (19-41); Mean Corp Hgb Conc 34.1 g/dL (32-36); Mean Corpuscular Hgb 31.2 pg (27.0-32.0); Mean Corpuscular Volume 91.4 fL (80-94); Mean Platelet Vol. 10.9 fl (6.2-12.0); Monocyte# 0.48 X10^3/uL; NRBC Flagged by Analyzer 0 % (0-5); Neutrophil # 3.02 X10^3/uL (2.7-7.7); Neutrophil % 56.7 % (47-70); Platelet Count 264 K/mm3 (150-450); RBC Distribution Width CV 12.9 % (11.6-14.6); RBC Distribution Width SD 42.7 fl (35.1-43.9); Red Blood Count 4.43 M/mm3 (4.6-6.2); White Blood Count 5.3 K/mm3 (4.4-11.0)
[2021-10-25 10:13] LABS: Hemoglobin A1c 9.8 % (3.8-5.6)
[2021-10-25 10:24] LABS: Microalbumin,Random Urine 19.4 mg/L (NO RANGE EST.); Microalbumin:Creatinine Ratio 11.3 mg/g CRE (<30 mg/g CRE)
[2021-10-25 10:30] LABS: ALB/GLOB Ratio 1.2 RATIO (0.9-2.4); AST(SGOT) 22 U/L (15-37); Alanine Aminotransfer ALT/SGPT 37 U/L (16-61); Albumin, Serum 3.9 g/dL (3.2-5.0); Alkaline Phosphatase 62 U/L (45-117); Anion Gap 9 (5-15); BUN 7 mg/dL (7-18); BUN/Creat Ratio 10.2 RATIO (10-20); Calcium,Total 9.3 mg/dL (8.5-10.1); Chloride 103 mmol/L (98-107); Cholesterol 157 mg/dL (200); Creatinine, Serum 0.68 mg/dL (0.70-1.30); EST Glomerular Filtration Rate 127 mL/min (>60); Est Glom Filt Rate - Afr Amer 153 mL/min (>60); Globulin 3.2 g/dL (2.2-4.2); Glucose 192 mg/dL (74-106); High Density Lipoprotein 34 mg/dL; Potassium 3.9 mmol/L (3.5-5.1); Protein, Total 7.1 g/dL (6.4-8.2); Sodium Level 139 mmol/L (136-145); Triglycerides 85 mg/dL; Very Low Density Lipoprotein 17 mg/dL (5-40)
== END 2021-10-25 23:59 | disposition home or self-care (01) ==
LOC: MTLAB 09:07
PROVIDERS: PCP Family Medicine; Referring Provider Family Medicine; Visit Provider Family Medicine
DX: E11.65 Type 2 diabetes mellitus with hyperglycemia (principal); E78.2 Mixed hyperlipidemia; I10 Essential (primary) hypertension
CPT/HCPCS: 36415; 80053; 80061; 82043; 82570; 83036; 85025

== ENCOUNTER → 2022-05-29 | Outpatient (CLI) | payer OTHER, SELFPAY ==
[2022-05-29 12:16] LABS: Absolute Lymphocyte Count 1.44 X10^3/uL (0.83-4.51); Absolute Neutrophil Count 9.4 X10^3/uL (2.0-7.7); Basophil# 0.05 X10^3/uL; Basophil% 0.4 % (0-1); Eosinophils% 0.9 % (0-5); Hematocrit 41.4 % (40-54); Lymphocyte # 1.44 X10^3/ul (0.83-4.51); Lymphocyte % 12.4 % (19-41); Mean Corp Hgb Conc 33.8 g/dL (32-36); Mean Corpuscular Hgb 30.2 pg (27.0-32.0); Mean Corpuscular Volume 89.4 fL (80-94); Mean Platelet Vol. 10.4 fl (6.2-12.0); Monocyte# 0.62 X10^3/uL; Monocyte% 5.3 % (0-10); NRBC Flagged by Analyzer 0 % (0-5); Neutrophil # 9.35 X10^3/uL (2.7-7.7); Neutrophil % 80.5 % (47-70); Platelet Count 461 K/mm3 (150-450); RBC Distribution Width CV 12.3 % (11.6-14.6); RBC Distribution Width SD 39.8 fl (35.1-43.9); Red Blood Count 4.63 M/mm3 (4.6-6.2); White Blood Count 11.6 K/mm3 (4.4-11.0)
[2022-05-29 12:30] LABS: Vitamin B12 663 pg/mL (211-911)
[2022-05-29 12:34] LABS: ALB/GLOB Ratio 0.7 RATIO (0.9-2.4); AST(SGOT) 10 U/L (15-37); Alanine Aminotransfer ALT/SGPT 14 U/L (16-61); Albumin, Serum 3.2 g/dL (3.2-5.0); Alkaline Phosphatase 91 U/L (45-117); Anion Gap 7 (5-15); BUN 6 mg/dL (7-18); BUN/Creat Ratio 10.6 RATIO (10-20); Chloride 98 mmol/L (98-107); Cholesterol 145 mg/dL (200); Creatinine, Serum 0.57 mg/dL (0.70-1.30); EST Glomerular Filtration Rate 157 mL/min (>60); Est Glom Filt Rate - Afr Amer 190 mL/min (>60); Ferritin 117 ng/mL (26-388); Globulin 4.7 g/dL (2.2-4.2); Glucose 205 mg/dL (74-106); High Density Lipoprotein 22 mg/dL; Potassium 3.3 mmol/L (3.5-5.1); Protein, Total 7.9 g/dL (6.4-8.2); Sodium Level 133 mmol/L (136-145); Triglycerides 115 mg/dL; Very Low Density Lipoprotein 23 mg/dL (5-40)
[2022-05-29 12:35] LABS: Hemoglobin A1c 10.1 % (3.8-5.6)
[2022-05-29 12:38] LABS: Microalbumin:Creatinine Ratio 90.6 mg/g CRE (<30 mg/g CRE)
== END | disposition home or self-care (01) ==
LOC: MTLAB 09:24
PROVIDERS: PCP Family Medicine; Referring Provider Family Medicine; Visit Provider Family Medicine
DX: E11.65 Type 2 diabetes mellitus with hyperglycemia (principal); I10 Essential (primary) hypertension; E78.2 Mixed hyperlipidemia; Z98.84 Bariatric surgery status
CPT/HCPCS: 36415; 80053; 80061; 82043; 82570; 82607; 82728; 83036; 85025

== ENCOUNTER → 2022-06-29 | Outpatient (CLI) | payer OTHER, SELFPAY ==
--- NOTE | 2022-06-29 10:42 | RAD_ITS ---
ACR Level 3 findings have been noted. An addendum which confirms receipt of the report will follow. HISTORY: COUGH. TECHNIQUE: XR Chest 2 Views. COMPARISON: 09/13/2020. FINDINGS: CARDIOMEDIASTINAL BORDERS: Cardiac silhouette within normal limits in size. Calcification of the aortic knob. LUNGS: 7 x 7.4 cm round right middle lobe mass. PLEURA: No pleural effusion or pneumothorax seen. OTHER: Mild degenerative changes of the osseous structure. Thoracic spinal electrode again seen. Gaseous distention of small bowel in the upper abdomen. RAD/Chest PA and Lateral IMPRESSION: 7 cm right middle lobe mass. Recommend CT to assess for neoplasm. Gaseous distention of small bowel from ileus, possible obstruction. Electronically Signed: Veronica Olivia MD at 11:40 EDT ,
== END | disposition home or self-care (01) ==
LOC: MTRAD 10:39
PROVIDERS: PCP Family Medicine
DX: R05.9 Cough, unspecified (principal)
CPT/HCPCS: 71046

== ENCOUNTER 2022-07-16 15:59 | Inpatient (IN) | payer OTHER, SELFPAY ==
[2022-07-16] VITALS (16 sets, daily range): BP systolic 110–136; BP diastolic 59–83; PULSE 75–121; RESP 20–26; TEMP 36.4–39.6; O2SAT 2–97; BMI 29.5; BMI 26.6
--- NOTE | 2022-07-16 16:24 | EKG12_ITS ---
Test Reason : SOB/CP Blood Pressure : / mmHG Vent. Rate : 124 BPM Atrial Rate : 124 BPM P-R Int : 126 ms QRS Dur : 084 ms QT Int : 304 ms P-R-T Axes : 034 049 016 degrees QTc Int : 436 ms Sinus tachycardia Otherwise normal ECG Confirmed by PEREZ CORONA, KESHAWN ([id number]), image editor ETHEL CALLAHAN ([id number]) on 07/18/2022 8:59:34 AM Referred By: TERENCE/SWATI Confirmed By:EDISON TODD MD
--- NOTE | 2022-07-16 16:26 | CT_ITS ---
STUDY: CTA CHEST REASON FOR EXAM: Male, 56 years old. PE RADIATION DOSAGE (If Supplied By Facility): CTDIvol = ( 12.96 ) mGy, DLP = ( 483.95 ) mGycm TECHNIQUE: The examination was performed with the intravenous administration of IV 100mL Isovue-370. Post-processing of the angiographic images was performed, with multiplanar reformation and 3D reconstruction. Individualized dose optimization techniques were used for this CT. COMPARISON: None. FINDINGS: Normal enhancement of the main pulmonary artery and right and left pulmonary arteries. Normal enhancement of the bilateral peripheral pulmonary arteries. There is no demonstrated pulmonary embolism. Normal thoracic aorta and visualized great vessels. There is no demonstrated aortic dissection. Normal heart and pericardium. There is a small pericardial effusion. Almost certainly malignant cavitary mass filling the right middle lobe. It abuts the pleural surfaces are seen right hilum. Greatest dimensions are approximately 9.3 x 11.5 x 7.8 cm. The central portion is probably necrotic, and filled with air and fluid. The mass abuts the pericardial surface on the right. There is right paratracheal and paraesophageal adenopathy. There is right hilar and subcarinal adenopathy. Very numerous widespread ill-defined pulmonary opacities are seen throughout the right upper lobe and right lower lobe. These could be metastases or atypical inflammatory process. Left lung is adequately expanded. There is a similar but much less prominent pattern of tiny irregular ill-defined density throughout the left lower lobe, again suspicious for metastases or atypical inflammatory process. No gross effusions. There are degenerative changes of thoracic spine. No gross acute abnormality of the visualized upper abdomen. CT/CTA Chest W/WO Contrast IMPRESSION: No demonstrated pulmonary embolism or arterial dissection. Cavitary malignant mass fills the right middle lobe. Biopsy is indicated. Widespread bilateral tiny pulmonary opacities throughout both lungs, worse on the right and likely representing metastasis. Electronically Signed: Guerrero Silva MD at 18:23 EDT ,
[2022-07-16] MEDS: Ondansetron 4 MG/2 ML Vial IV (16:37)
[2022-07-16] MEDS: Morphine 4 MG/ML Syringe IV ×3 (16:37→22:21)
[2022-07-16 16:38] LABS: Absolute Lymphocyte Count 1.07 X10^3/uL (0.83-4.51); Absolute Neutrophil Count 12.4 X10^3/uL (2.0-7.7); Basophil# 0.05 X10^3/uL; Basophil% 0.3 % (0-1); Eosinophil# 0.04 X10^3/uL; Eosinophils% 0.3 % (0-5); Hematocrit 31.1 % (40-54); Hemoglobin 10.2 g/dL (13.0-16.5); Lymphocyte # 1.07 X10^3/ul (0.83-4.51); Lymphocyte % 7.3 % (19-41); Mean Corp Hgb Conc 32.8 g/dL (32-36); Mean Corpuscular Hgb 28.4 pg (27.0-32.0); Mean Corpuscular Volume 86.6 fL (80-94); Mean Platelet Vol. 10.7 fl (6.2-12.0); Monocyte# 1.07 X10^3/uL; Monocyte% 7.3 % (0-10); NRBC Flagged by Analyzer 0 % (0-5); Neutrophil # 12.38 X10^3/uL (2.7-7.7); Neutrophil % 84.1 % (47-70); Platelet Count 518 K/mm3 (150-450); RBC Distribution Width CV 13.2 % (11.6-14.6); RBC Distribution Width SD 41.2 fl (35.1-43.9); Red Blood Count 3.59 M/mm3 (4.6-6.2); White Blood Count 14.7 K/mm3 (4.4-11.0)
[2022-07-16] MEDS: 0.9% Normal Saline 1,000 ML 1000 ML IV (16:38)
[2022-07-16] MEDS: Acetaminophen 500 MG Tablet 1000 MG PO (16:38)
[2022-07-16 16:47] LABS: International Normalized Ratio 1.1; Prothrombin Time (Protime)PT. 14.6 SECONDS (11.7-14.9)
--- NOTE | 2022-07-16 16:47 | EX.ED.DYSGE1 ---
HPI History of Present Illness Chief Complaint: Nausea/Vomiting Informant: patient Onset/Context/Timing Onset: Month(s) (2) Context: Gradual Onset Timing: Continuous Quality: Sharp, stabbing Location: Substernal Worsened by: Coughing Relieved by: Nothing Narrative Narrative: Patient presents with chest pain that has been getting worse over the past few months. Patient states that over the substernal area. Patient states it is constant. Patient states he started having some nausea and vomiting today. Patient states he was having some hematemesis today. Patient states he has also been having a cough. Patient states he was recently diagnosed with a lung mass. Patient is in the process of having this evaluated. Patient admits to some shortness of breath. Patient denies any diarrhea, melena, or hematochezia. Patient denies any urinary complaints. Patient denies any abdominal pain. [facility] Medical History Asthma Atrial fibrillation Chest pain Chronic pain COVID-19 Essential hypertension GERD (gastroesophageal reflux disease) History of diabetes mellitus, type II History of obesity HLD (hyperlipidemia) Lung mass Pure hypercholesterolemia Restless legs syndrome (RLS) Spinal cord stimulator status Type 2 diabetes mellitus Home Medications duloxetine 60 mg capsule,delayed release (Cymbalta) 150 mg PO DAILY antidepress 07/16/22 [History Last Taken Unknown] gabapentin 800 mg tablet 800 mg PO Q6H nerve pain 07/16/22 [History Last Taken Unknown] hydrocodone 10 mg-acetaminophen 325 mg tablet 1 tab PO Q6H PRN Pain 07/16/22 [History Last Taken Unknown] lisinopril 20 mg tablet 20 mg PO DAILY bp 07/16/22 [History Last Taken Unknown] morphine 15 mg tablet,extended release 15 mg PO QHS pain 07/16/22 [History Last Taken Unknown] Allergy/AdvReac Type Severity Reaction Status Date / Time amantadine Allergy Hives Verified 07/16/22 15:59 metformin [From Glucophage] Allergy Itching Verified 07/16/22 15:59 pravastatin [From Pravachol] Allergy Hives Verified 07/16/22 15:59 salmon oil Allergy Itching Verified 07/16/22 15:59 simvastatin [From Zocor] Allergy Hives Verified 07/16/22 15:59 tamsulosin Allergy Swelling Verified 07/16/22 15:59 Family History Mother Breast cancer Hypertension Diabetes Father Hypertension Surgical History H/O gastric bypass History of left hip replacement History of total left knee replacement S/P insertion of spinal cord stimulator Social History household members: spouse Smoking Status: Never smoker second hand exposure: No alcohol intake: current alcohol intake frequency: holidays/special occasions only substance use type: does not use ROS ROS ED Constitutional Constitutional ED: Denies chills or fever(s) Eyes Eyes: Denies blurry vision or change in vision ENT ENT ED: Reports sore throat; Denies rhinorrhea Cardiovascular Cardiovascular: Reports chest pain; Denies palpitations Respiratory/Chest Respiratory/Chest: Reports cough and dyspnea Gastrointestinal Gastrointestinal: Reports nausea and vomiting Genitourinary Genitourinary ED: Denies dysuria or hematuria Musculoskeletal Musculoskeletal: Denies back pain or neck pain Integumentary Denies abscess or rash Neurologic Neurologic: Denies headache(s) or weakness Allergic/Immunologic Allergic/Immunologic ED: Denies mouth swelling or urticaria EXAM Physical Exam Const Vital Signs: 07/16/22 16:02 07/16/22 16:09 07/16/22 17:50 Temperature 103.2 F H 103.2 F H Temperature Source Temporal Oral Pulse Rate 121 H 121 H Respiratory Rate 20 H 20 H Blood Pressure 130/76 H 130/76 H Blood Pressure Mean 94 94 Pulse Ox 93 93 90 Oxygen Delivery Method Nasal Cannula Nasal Cannula Nasal Cannula Oxygen Flow Rate (L/min) 2 2 2 07/16/22 17:50 07/16/22 17:51 07/16/22 16:03 Temperature Temperature Source Pulse Rate 95 Respiratory Rate 23 H Blood Pressure Blood Pressure Mean Pulse Ox 93 88 Oxygen Delivery Method Nasal Cannula Room Air Oxygen Flow Rate (L/min) 3 07/16/22 17:59 07/16/22 18:00 07/16/22 20:00 Temperature 100 F H Temperature Source Oral Pulse Rate 96 99 92 Respiratory Rate 24 H 23 H 20 H Blood Pressure 131/83 H Blood Pressure Mean 99 Pulse Ox 93 95 96 Oxygen Delivery Method Room Air Room Air Oxygen Flow Rate (L/min) 07/16/22 20:32 Temperature Temperature Source Pulse Rate 95 Respiratory Rate 22 H Blood Pressure 131/68 H Blood Pressure Mean 89 Pulse Ox 97 Oxygen Delivery Method Room Air Oxygen Flow Rate (L/min) Positive well nourished and well developed General Appearance ED: well developed and NAD HEENT Reports moist mucous membranes Neck supple and no JVD Chest Wall Chest Narrative: There is mild tenderness over the lower sternal area and right parasternal area. Resp normal respiratory effort and clear to auscultation bilaterally Cardio regular rate and regular rhythm GI normal to inspection, nondistended, normoactive bowel sounds and non-tender Palpation: soft Extremity normal to inspection General Extremety ED: Negative for edema or tenderness General Extremity: Negative for edema Neuro oriented x3, CN's II-XII intact bilaterally and no sensory deficits noted Sensorium / Orientation: alert Motor Exam: strength 5/5 throughout Psych mental status grossly normal Skin no rashes or lesions noted Sepsis Attestation Date exam was performed: 07/16/22 Time exam was performed: 14:10 Possible Source of Sepsis: Pulmonary Sepsis Organ Dysfunction Criteria Present: Lactic Acid > 2 mmol/L MDM MDM MDM Narrative Medical decision making narrative: Differential diagnosis includes pneumonia, sepsis, lung cancer, urinary tract infection, cardiac dysrhythmia, cardiac ischemia, electrolyte abnormality, and pulmonary embolism. CTA of the chest will be obtained to assess for pulmonary embolism and lung mass. EKG will be obtained to assess for cardiac dysrhythmia and cardiac ischemia. CBC will be obtained to assess for leukocytosis and anemia. Comprehensive metabolic profile will be obtained to assess for electrolyte abnormality, renal function, and hepatic function. High-sensitivity troponin will be obtained to assess for cardiac ischemia. PT with INR and PTT will be obtained to assess for coagulopathy. Lactate will be obtained to assess for sepsis. Urine culture will be obtained to assess for urinary tract infection. Blood cultures will be obtained to assess for sepsis. Lab Data Attestation: I reviewed the patient's lab results. Lab results narrative: CBC was reviewed. There is a leukocytosis of 14.7. Hemoglobin was 10.2 and hematocrit was 31.1. Comprehensive metabolic profile was reviewed. Glucose was elevated at 437. Sodium was 128 and chloride was 95. Potassium was slightly elevated at 5.4. BUN was 24 and creatinine was 0.95. Liver function tests were within normal limits. PT was INR and PTT were reviewed. Pro time was 14.6, INR is 1.1, and PTT was slightly elevated at 36.5. Lactate was elevated 2.8. Urinalysis was reviewed. There is no evidence of urinary tract infection or hematuria. Labs: Laboratory Results - last 24 hr 07/16/22 07/16/22 07/16/22 16:20 16:20 16:20 WBC 14.7 H RBC 3.59 L Hgb 10.2 L Hct 31.1 L MCV 86.6 MCH 28.4 MCHC 32.8 RDW Std Deviation 41.2 RDW Coeff of Wood 13.2 Plt Count 518 H MPV 10.7 Immature Gran % (Auto) 0.700 Neut % (Auto) 84.1 H Lymph % (Auto) 7.3 L [place] % (Auto) 7.3 Eos % (Auto) 0.3 Baso % (Auto) 0.3 Absolute Neuts (auto) 12.4 H Absolute Lymphs (auto) 1.07 Nucleated RBC % 0 PT 14.6 INR 1.1 APTT 36.5 H Sodium 128 L Potassium 5.4 H Chloride 95 L Carbon Dioxide 23.0 Anion Gap 10 BUN 24 H Creatinine 0.95 Estim Creat Clear Calc 84.76 Est GFR (MDRD) Af Amer 104 Est GFR (MDRD) Non-Af 86 BUN/Creatinine Ratio 25.2 H Glucose 437 H Lactic Acid Calcium 9.4 Total Bilirubin 0.40 AST 6 L ALT 13 L Alkaline Phosphatase 90 Troponin I High Sens 6 Total Protein 7.7 Albumin 2.8 L Globulin 4.9 H Albumin/Globulin Ratio 0.6 L Urine Color Urine Clarity Urine pH Ur Specific [place] Urine Protein Urine Glucose (UA) Urine Ketones Urine Occult Blood Urine Nitrite Urine Bilirubin Urine Urobilinogen Ur Leukocyte Esterase Urine RBC Urine WBC Ur Squamous Epith Cells Amorphous Sediment Urine Bacteria Urine Mucus Urine Osmolality Ur Random Sodium 07/16/22 07/16/22 07/16/22 16:20 18:30 18:30 WBC RBC Hgb Hct MCV MCH MCHC RDW Std Deviation RDW Coeff of [place] Plt Count MPV Immature Gran % (Auto) Neut % (Auto) Lymph % (Auto) [place] % (Auto) Eos % (Auto) Baso % (Auto) Absolute Neuts (auto) Absolute Lymphs (auto) Nucleated RBC % PT INR APTT Sodium Potassium Chloride Carbon Dioxide Anion Gap BUN Creatinine Estim Creat Clear Calc Est GFR (MDRD) Af Amer Est GFR (MDRD) Non-Af BUN/Creatinine Ratio Glucose Lactic Acid 2.8 H* Calcium Total Bilirubin AST ALT Alkaline Phosphatase Troponin I High Sens Total Protein Albumin Globulin Albumin/Globulin Ratio Urine Color Yellow Urine Clarity Sl. Cloudy Urine pH 5.0 Ur Specific [place] 1.015 Urine Protein 15 H Urine Glucose (UA) 1000 H Urine Ketones Negative Urine Occult Blood Negative Urine Nitrite Negative Urine Bilirubin Negative Urine Urobilinogen 1 H Ur Leukocyte Esterase Negative Urine RBC 0 SEEN Urine WBC 0 SEEN Ur Squamous Epith Cells 0-5 SEEN Amorphous Sediment 1+ URATE Urine Bacteria 0 SEEN Urine Mucus 0 SEEN Urine Osmolality 673 Ur Random Sodium 18 Radiography Diagnostic Testing: Clinical Impression(s) from Imaging Studies Chest CTA 07/16/22 16:26 IMPRESSION: No demonstrated pulmonary embolism or arterial dissection. Cavitary malignant mass fills the right middle lobe. Biopsy is indicated. Widespread bilateral tiny pulmonary opacities throughout both lungs, worse on the right and likely representing metastasis. Electronically Signed: Guerrero Silva MD at 18:23 EDT , CTA of the chest was obtained. There is no pulmonary embolism or aortic dissection. There is a cavitary malignant mass in the right middle lobe. There are widespread bilateral tiny pulmonary opacities throughout both lungs, worse on the right. These likely represent metastases. This was interpreted by the radiologist and was also independently reviewed by myself. EKG Initial EKG: Attestation: I personally reviewed and interpreted this EKG as follows: Interpretation: No Acute Injury Pattern and Sinus Tachycardia (124) Comments: EKG was obtained. On my independent interpretation, it showed a sinus tachycardia with a rate of 124. DC interval, QRS interval, and QTc intervals were all normal. Gause was normal. There are no acute ST or T wave changes. Prior EKG tracings: available for review Prior: Unchanged (09/13/2020) Management Discussion w/another healthcare provider: Hospitalist and Manager Merchandising (Dr. Snell from pulmonology) Treatment and Re-Evaluation :: Patient was given a dose of Tylenol. Patient was given IV fluids. Patient was treated for his hyperkalemia with calcium gluconate and insulin. Patient was given morphine and Zofran initially. Patient was given a repeat dose of morphine. Patient met criteria for sepsis. Patient was given a dose of vancomycin and Zosyn. Patient was given an albuterol aerosol to help with his breathing as well as his hyperkalemia. Patient does not meet criteria for septic shock and a 30 cc/kg IV fluid bolus is not indicated. Case was discussed with Dr. Snell from pulmonology. He will see the patient in the hospital for bronchoscopy and further evaluation of the lung mass. Case will be discussed with the hospitalist. He will admit the patient to the hospital. Patient and family understood and were agreeable with the plan. All questions were answered. Critical Care Time Critical Care Time: Yes Critical care time (excluding procedures): 30-74 minutes (38), Including time spent:, Discussing w/Patient &/or Family/Laser Specialist, Discussing w/Consultants, Arranging Admission or Transfer and Performing Direct Patient Care at Bedside Discharge Plan Dx/Rx/DC Orders Clinical Impression: Mass of right lung, Type 2 diabetes mellitus, Sepsis Disposition Disposition: [facility] Discharge Date/Time: 07/16/22 21:57
[2022-07-16 16:48] LABS: Partial Thromboplast Time 36.5 Seconds (24.1-36.2)
[2022-07-16 16:57] LABS: ALB/GLOB Ratio 0.6 RATIO (0.9-2.4); AST(SGOT) 6 U/L (15-37); Alanine Aminotransfer ALT/SGPT 13 U/L (16-61); Albumin, Serum 2.8 g/dL (3.2-5.0); Alkaline Phosphatase 90 U/L (45-117); Anion Gap 10 (5-15); BUN 24 mg/dL (7-18); BUN/Creat Ratio 25.2 RATIO (10-20); Calcium,Total 9.4 mg/dL (8.5-10.1); Chloride 95 mmol/L (98-107); Creatinine, Serum 0.95 mg/dL (0.70-1.30); EST Glomerular Filtration Rate 86 mL/min (>60); Est Glom Filt Rate - Afr Amer 104 mL/min (>60); Estimated Creatinine Clearance 84.76 ml/min; Globulin 4.9 g/dL (2.2-4.2); Glucose 437 mg/dL (74-106); Potassium 5.4 mmol/L (3.5-5.1); Protein, Total 7.7 g/dL (6.4-8.2); Sodium Level 128 mmol/L (136-145); Troponin-I HS 6 pg/mL (3.0-78.0)
[2022-07-16 17:05] LABS: Lactic Acid 2.8 mmol/L (0.4-1.9)
[2022-07-16] MEDS: Albuterol 2.5 MG/3 ML VIAL.NEB. INHALATION ×2 (17:46→23:50)
[2022-07-16] MEDS: Insulin Lispro 10 UNIT in Syringe 0 ML 6 UNIT IV (18:09)
[2022-07-16] MEDS: Calcium Gluconate IV 3 GM in Syringe 1 EACH IV (18:09)
[2022-07-16 18:39] LABS: Bacteria 0 SEEN /hpf (None Seen); Mucous, Urine 0 SEEN /hpf (<or=2+); Red Blood Cells-Urine 0 SEEN /hpf (0-5); White Blood Cells 0 SEEN /hpf (0-5)
[2022-07-16 18:58] LABS: Color, Urine Yellow (Yellow); Glucose, Dipstick 1000 mg/dl (Normal); Ketone-Dipstick Negative (Negative); Leukocyte Esterase-Dipstick Negative /ul (Negative); Nitrite-Dipstick Negative (Negative); Occult Blood-Urine Negative /ul (Negative); Protein-Dipstick 15 mg/dl (Negative); Specific Gravity, Urine 1.015 (1.002-1.030); Urine Bilirubin Dipstick Negative (Negative); Urine Clarity Sl. Cloudy (Clear); Urine Urobilinogen 1 mg/dl (Normal)
[2022-07-16 19:10] LABS: Squamous Epithelial Cells - UA 0-5 SEEN /hpf (0-5)
[2022-07-16 19:11] LABS: Amorphous Sediment 1+ URATE
[2022-07-16 20:33] LABS: Reflex Lactate? Y
--- NOTE | 2022-07-16 20:45 | HP.PCM.HOS_ITS ---
HPI - General General Date of Admission: 07/16/22 Date of Service: 07/16/22 Chief Complaint: Chest pain HPI Narrative RAYMON CAMACHO, is a 56 M with a significant history of asthma, atrial fibrillation, and type 2 diabetes who presents to the emergency department with right-sided progressively worsening sharp pain that started about 2 months ago. The pain is nonradiating. Also he has been having a profuse cough. He reports spitting up blood. He did a chest x-ray about 2 months ago that showed a mass and a CT scan also few days before presentation and that also showed a mass; this time with a worsening size.. Because of progressive worsening of his symptoms he came to emergency department. He reports that he completed a dose of Z-Farhat a week before presentation. He reports a tingling in his throat. [facility] Medical History Asthma Atrial fibrillation Chest pain Chronic pain COVID-19 Essential hypertension GERD (gastroesophageal reflux disease) History of diabetes mellitus, type II History of obesity HLD (hyperlipidemia) Lung mass Pure hypercholesterolemia Restless legs syndrome (RLS) Spinal cord stimulator status Type 2 diabetes mellitus Home Medications duloxetine 60 mg capsule,delayed release (Cymbalta) 150 mg PO DAILY antidepress 07/16/22 [History Last Taken Unknown] gabapentin 800 mg tablet 800 mg PO Q6H nerve pain 07/16/22 [History Last Taken Unknown] hydrocodone 10 mg-acetaminophen 325 mg tablet 1 tab PO Q6H PRN Pain 07/16/22 [History Last Taken Unknown] lisinopril 20 mg tablet 20 mg PO DAILY bp 07/16/22 [History Last Taken Unknown] morphine 15 mg tablet,extended release 15 mg PO QHS pain 07/16/22 [History Last Taken Unknown] Allergy/AdvReac Type Severity Reaction Status Date / Time amantadine Allergy Hives Verified 07/16/22 15:59 metformin [From Glucophage] Allergy Itching Verified 07/16/22 15:59 pravastatin [From Pravachol] Allergy Hives Verified 07/16/22 15:59 salmon oil Allergy Itching Verified 07/16/22 15:59 simvastatin [From Zocor] Allergy Hives Verified 07/16/22 15:59 tamsulosin Allergy Swelling Verified 07/16/22 15:59 Family History Mother Breast cancer Hypertension Diabetes Father Hypertension Surgical History H/O gastric bypass History of left hip replacement History of total left knee replacement S/P insertion of spinal cord stimulator Social History household members: spouse Smoking Status: Never smoker second hand exposure: No alcohol intake: current alcohol intake frequency: holidays/special occasions only substance use type: does not use ROS ROS Narrative Pertinent positives and pertinent negatives as noted in HPI. All other systems were reviewed and are negative Vital Signs Vital Signs Vital Signs: 07/16/22 16:02 07/16/22 16:09 07/16/22 17:50 Temperature 103.2 F H 103.2 F H Temperature Source Temporal Oral Pulse Rate 121 H 121 H Respiratory Rate 20 H 20 H Blood Pressure 130/76 H 130/76 H Blood Pressure Mean 94 94 Pulse Ox 93 93 90 Oxygen Delivery Method Nasal Cannula Nasal Cannula Nasal Cannula Oxygen Flow Rate (L/min) 2 2 2 07/16/22 17:50 07/16/22 17:51 07/16/22 16:03 Temperature Temperature Source Pulse Rate 95 Respiratory Rate 23 H Blood Pressure Blood Pressure Mean Pulse Ox 93 88 Oxygen Delivery Method Nasal Cannula Room Air Oxygen Flow Rate (L/min) 3 07/16/22 17:59 07/16/22 18:00 07/16/22 20:00 Temperature 100 F H Temperature Source Oral Pulse Rate 96 99 92 Respiratory Rate 24 H 23 H 20 H Blood Pressure 131/83 H Blood Pressure Mean 99 Pulse Ox 93 95 96 Oxygen Delivery Method Room Air Room Air Oxygen Flow Rate (L/min) 07/16/22 20:32 Temperature Temperature Source Pulse Rate 95 Respiratory Rate 22 H Blood Pressure 131/68 H Blood Pressure Mean 89 Pulse Ox 97 Oxygen Delivery Method Room Air Oxygen Flow Rate (L/min) Weight Weight: 90.7 kg Body Mass Index (BMI) 29.5 Physical Exam Narrative Physical exam: General: Patient coughing profusely in bed and complaining of right-sided chest pain. Head: Normocephalic, atraumatic, no tenderness Eyes: Vision is grossly intact. EOMI ENT, no trauma, moist mucous membranes, no rhinorrhea Neck: Nontender, No thyromegaly. CVS: Regular rate and rhythm. S1-S2 present. No murmur, gallop or rub. Respiratory : clear to auscultation bilaterally, chest wall nontender Abdomen: Soft, nontender, nondistended, normal bowel sounds, no masses : Deferred Back: Nontender, no CVA tenderness. Extremities: Nontender full range of motion, no trauma Skin: Normal color, no trauma, abrasions Neuro: Alert, oriented, cranial nerves II through XII grossly intact. Psychiatry: Normal mood. Normal affect. Not depressed. Not anxious. Results Medical Records Data Attestation: I reviewed the patient's medical records Lab / Micro Data Result Diagrams: 07/16/22 16:20 07/16/22 16:20 Labs: Laboratory Results - last 24 hr 07/16/22 16:20: WBC 14.7 H, RBC 3.59 L, Hgb 10.2 L, Hct 31.1 L, MCV 86.6, MCH 28.4, MCHC 32.8, RDW Std Deviation 41.2, RDW Coeff of Wood 13.2, Plt Count 518 H, MPV 10.7, Immature Gran % (Auto) 0.700, Neut % (Auto) 84.1 H, Lymph % (Auto) 7.3 L, [place] % (Auto) 7.3, Eos % (Auto) 0.3, Baso % (Auto) 0.3, Absolute Neuts (auto) 12.4 H, Absolute Lymphs (auto) 1.07, Nucleated RBC % 0 07/16/22 16:20: PT 14.6, INR 1.1, APTT 36.5 H 07/16/22 16:20: Sodium 128 L, Potassium 5.4 H, Chloride 95 L, Carbon Dioxide 23.0, Anion Gap 10, BUN 24 H, Creatinine 0.95, Estim Creat Clear Calc 84.76, Est GFR (MDRD) Af Amer 104, Est GFR (MDRD) Non-Af 86, BUN/Creatinine Ratio 25.2 H, Glucose 437 H, Calcium 9.4, Total Bilirubin 0.40, AST 6 L, ALT 13 L, Alkaline Phosphatase 90, Troponin I High Sens 6, Total Protein 7.7, Albumin 2.8 L, Globulin 4.9 H, Albumin/Globulin Ratio 0.6 L 07/16/22 16:20: Lactic Acid 2.8 H* 07/16/22 18:30: Urine Color Yellow, Urine Clarity Sl. Cloudy, Urine pH 5.0, Ur Specific [place] 1.015, Urine Protein 15 H, Urine Glucose (UA) 1000 H, Urine Ketones Negative, Urine Occult Blood Negative, Urine Nitrite Negative, Urine Bilirubin Negative, Urine Urobilinogen 1 H, Ur Leukocyte Esterase Negative, Urine RBC 0 SEEN, Urine WBC 0 SEEN, Ur Squamous Epith Cells 0-5 SEEN, Amorphous Sediment 1+ URATE, Urine Bacteria 0 SEEN, Urine Mucus 0 SEEN Radiology Impression Chest CTA 07/16/22 16:26 IMPRESSION: No demonstrated pulmonary embolism or arterial dissection. Cavitary malignant mass fills the right middle lobe. Biopsy is indicated. Widespread bilateral tiny pulmonary opacities throughout both lungs, worse on the right and likely representing metastasis. Electronically Signed: Guerrero Silva MD at 18:23 EDT , Assessment & Plan Assessment/Plan (1) Mass of right lung: (2) Sepsis: (3) Pneumonia: PLAN: Plan The patient presented with sepsis due to (pneumonia) with acute sepsis related organ dysfunction as evidenced by (lactic acidosis). SIRS criteria: Temperature more than 100.9 Fahrenheit. Tmax of 103.2 Fahrenheit on presentation. Respiratory rate more than 20. Highest respiratory rate of 24 on presentation. Heart rate more than 90. Maximal heart rate of 121 on presentation WBC more than 12,000. White count was 14,700 on presentation. organ dysfunction: Lactic acidosis with lactic acid of 2.8. Trend lactic acid. Blood culture was ordered emergency department, follow. Received normal saline bolus Pneumonia Chest CTA with a cavitary mass. Chest CT was significant interpreted and I agree with radiologist interpretation. Likely post obstructive from mass. Strep pneumoniae antigen and Legionella urine antigen ordered. Sputum culture ordered. IV hydration. Breathing treatment continued Legionella antigen screen and Strep antigen ordered. Vancomycin and Zosyn started emergency department continue. Mass of right lung ED doc discussed with pulmonology/extended insurance clerk who will consider bronc with biopsy. Hold aspirin. Keep patient n.p.o. after midnight. No chemical thromboprophylaxis. Cepacol spray ordered for throat. Home pain regimen continued. As needed morphine and as needed guaifenesin with codeine ordered. Tesalfredoon Stephen ordered Hyperkalemia Potassium 5.4. Received insulin, and albuterol inhalation; and calcium at the ED. Trend BMP. Hyponatremia Sodium of 128 on presentation. Patient appears euvolemic. Anticipate SIADH. Urine electrolyte ordered. Urine osmolality and serum osmolality ordered. TSH and a.m. cortisol ordered. Trend BMP. Diabetes mellitus with hyperglycemia Blood glucose of 437 on presentation. Home basal insulin continue. Accu-Chek correction scale insulin ordered. Hypertension Blood pressure is stable Home blood pressure medication continued Trend blood pressure and adjust blood pressure medications. BLAKE Creatinine presentation was 0.95. Baseline creatinine is around 0.65. Received normal saline bolus in emergency department. In the setting of possible SIADH we will hold off further IV fluids. Trend BMP. DVT prophylaxis Subcutaneous Lovenox ordered. Sepsis Attestation Sepsis Alert: Yes Sepsis Attestation: Agree w/Sepsis Date exam was performed: 07/16/22 Time exam was performed: 20:00 Sepsis Organ Dysfunction Criteria Present: Lactic Acid > 2 mmol/L Fluid Resuscitation Fluid Resuscitation ordered: Fluids not indicated Charges/Coding Visit Charges Inpatient E&M: 17237 Init Hosp L3
[2022-07-16 21:20] LABS: Lactic Acid 1.1 mmol/L (0.4-1.9)
[2022-07-16] MEDS: 0.9% Saline Lock 10 ML Syringe IV (22:21)
[2022-07-16] MEDS: guaiFENesin/Codeine 5 ML UDC 10 ML PO (22:22)
[2022-07-16] MEDS: Insulin Lispro 100 UNIT/ML INSULN.PEN SC (22:31)
[2022-07-16] MEDS: Insulin Glargine-YFGN 100 UNIT/ML Pen 20 UNIT SC (22:31)
[2022-07-16] MEDS: Atorvastatin Calcium 40 MG Tablet PO (22:32)
--- NOTE | 2022-07-16 22:33 | PHA.PHARE_ITS ---
Consult Pharmacy has been consulted to manage selected antiobiotic: Vancomycin Type of Consult: New start Suspected Infection: Sepsis, Pneumonia Prior Doses of Antibiotics Received/Current Regimen: Medications Vancomycin HCl 1,500 mg/ (Sodium Chloride) 530 mls @ 250 mls/hr IV Q12H LONNIE Discontinued Medications Vancomycin HCl 2,000 mg/ (Sodium Chloride) 540 mls @ 250 mls/hr IV X1 ONE Stop: 07/16/22 20:42 Last Admin: 07/16/22 20:48 Dose: 250 mls/hr Labs: Sodium 128 mmol/L (136-145) L 07/16/22 16:20 Potassium 5.4 mmol/L (3.5-5.1) H 07/16/22 16:20 Chloride 95 mmol/L (98-107) L 07/16/22 16:20 Carbon Dioxide 23.0 mmol/L (21.0-32.0) 07/16/22 16:20 Anion Gap 10 (5-15) 07/16/22 16:20 BUN 24 mg/dL (7-18) H 07/16/22 16:20 Creatinine 0.95 mg/dL (0.70-1.30) 07/16/22 16:20 Est GFR (MDRD) Af Amer 104 mL/min (>60) 07/16/22 16:20 Est GFR (MDRD) Non-Af 86 mL/min (>60) 07/16/22 16:20 BUN/Creatinine Ratio 25.2 RATIO (10-20) H 07/16/22 16:20 Glucose 437 mg/dL (74-106) H 07/16/22 16:20 Weight used for dosin.8 kg Estimated Creatinine Clearance: 85 Goal Trough: 15-20 mcg/mL Pharmacy Plan for Drug Dosing: Pharmacy Service will continue to monitor and adjust dosing as required. Follow-Up Labs: Trough Vancomycin Labs to be done on [date and time ordered]: 07/18/22 @9630
[2022-07-16 22:58] LABS: Bedside Glucose 299 mg/dL (74-106)
--- NOTE | 2022-07-16 23:33 | NURSING ---
fluid resuscitation done in ed. only 1l of fluid d/t concern of overload, per report
[2022-07-16] MEDS: Gabapentin 800 MG Tablet PO (23:43)
[2022-07-16] MEDS: morphine SR 15 MG Tablet PO (23:43)
[2022-07-16] MEDS: Benzonatate 100 MG Capsule PO (23:44)
[2022-07-16] MEDS: Phenol/Sodium Phenolate 180ML 3 SPRAY MUCOUS MEM (23:45)
[2022-07-17] VITALS (26 sets, daily range): BP systolic 113–154; BP diastolic 44–102; PULSE 73–97; RESP 15–24; TEMP 36.1–37.1; O2SAT 91–97; BMI 26.5
--- NOTE | 2022-07-17 | ASPIGT_PTH ---
PATIENT: RAYMON CAMACHO LOC: [facility] U#:[id number] AGE/SX: 56/M ROOM: [facility] RE07/16/[address]: Dr. Joaquin Jeffrey MD : 1965 BED: 1 DIS: 07/18/2022 SPEC #: [id number] RECD: 07/17/22 11:45 STATUS: MARIELLE REQ #: [id number] KENNEDY: 07/17/22 00:[address]: Joaquin Jeffrey DEPT: SURGICAL PATHOLOGY RECD BY: Adolph Shane ENTERED: 07/17/22 12:01 SP TYPE: ASP RAD OTHR DR: MD Dr. Tatiana Alejo DO Dr. Gabriele Pedicelli, MD Dr. Joseph Agyepong, MD Tissues: Lung, NOS Procedures: FNA Specimen Adequacy Elastin Stain (control) Trichrome (control) Special Stain Group II Special Stain Group I Surgery Specimen Level IV AFB Stain (control) GMS Stain (control) Retic (control) Imprint (control) HEADER OPERATION: CT-guided right lung biopsy PRE-OP DIAGNOSIS: Lung mass TISSUE SUBMITTED: Lung 20-gauge x6 MICROSCOPIC DIAGNOSIS Right lung, CT-guided core biopsy: Fragments of lung parenchymal tissue with focal necrosis, acute inflammation, fibrinous exudation, interstitial fibrosis and focal area consistent with organizing pneumonia. Negative for malignancy. See comment. SJ:yonas 07/18/2022 COMMENT The specimen is evaluated at the time of biopsy by Dr. Chin. Immediate Evaluation = Acute inflammation. Reactive epithelial cells. Negative for malignant cells. Special stains for acid fast bacilli and fungi are negative for organisms; matched controls are appropriate. Reticulin, elastin and trichrome stains are also used in the evaluation of the specimen; matched controls are appropriate. Correlation with clinical, radiologic findings and appropriate follow up are necessary. MICROSCOPIC DESCRIPTION Slides are reviewed. GROSS DESCRIPTION Received in fixative is one container labeled with the patient's name and designated right lung. The specimen consists of multiple irregular fragments of light nelson soft tissue that in aggregate measure 2.0 x <0.1 x <0.1 cm. The specimen is totally submitted in one cassette. Three touch imprints are prepared at the time of core biopsy. Specimen also taken for culture at the time of core biopsy. / ALANNA:yonas 07/17/2022 TC:2 CPT: 79953, 39211, 00309 x2, 49037 x3
[2022-07-17 00:11] LABS: Uric Acid 3.1 mg/dL (3.5-7.2)
[2022-07-17 00:28] LABS: M R Staph aureus DNA By PCR Negative (Negative); Probe Check PASS; Specimen Processing Control PASS
[2022-07-17 01:02] LABS: Osmolality, Serum 287 mOsm/KG (275-295)
[2022-07-17 01:03] LABS: Osmolality, Urine 673 mOsm/KG
[2022-07-17 01:13] LABS: Urine Sodium 18 mmol/L (Not Establ.)
[2022-07-17] MEDS: Morphine 4 MG/ML Syringe IV (03:42)
[2022-07-17] MEDS: Phenol/Sodium Phenolate 180ML 3 SPRAY MUCOUS MEM ×2 (03:45→14:43)
[2022-07-17] MEDS: guaiFENesin/Codeine 5 ML UDC 10 ML PO (03:46)
[2022-07-17] MEDS: HYDROcodone Bitartrate/Apap 5/325 Tablet PO ×2 (05:38→16:41)
[2022-07-17] MEDS: Gabapentin 800 MG Tablet PO ×2 (05:38→18:38)
[2022-07-17] MEDS: Benzonatate 100 MG Capsule PO (05:38)
[2022-07-17 05:43] LABS: Absolute Lymphocyte Count 1.29 X10^3/uL (0.83-4.51); Absolute Neutrophil Count 13.1 X10^3/uL (2.0-7.7); Basophil# 0.05 X10^3/uL; Basophil% 0.3 % (0-1); Eosinophil# 0.11 X10^3/uL; Eosinophils% 0.7 % (0-5); Hematocrit 28.9 % (40-54); Hemoglobin 9.4 g/dL (13.0-16.5); Lymphocyte # 1.29 X10^3/ul (0.83-4.51); Lymphocyte % 8.2 % (19-41); Mean Corp Hgb Conc 32.5 g/dL (32-36); Mean Corpuscular Hgb 28.7 pg (27.0-32.0); Mean Corpuscular Volume 88.4 fL (80-94); Mean Platelet Vol. 10.1 fl (6.2-12.0); Monocyte# 0.97 X10^3/uL; Monocyte% 6.2 % (0-10); NRBC Flagged by Analyzer 0 % (0-5); Neutrophil # 13.14 X10^3/uL (2.7-7.7); Platelet Count 417 K/mm3 (150-450); RBC Distribution Width CV 13.4 % (11.6-14.6); RBC Distribution Width SD 43.5 fl (35.1-43.9); Red Blood Count 3.27 M/mm3 (4.6-6.2); White Blood Count 15.7 K/mm3 (4.4-11.0)
[2022-07-17 06:08] LABS: Thyroid Stim Hormone (TSH) 0.26 uIU/mL (0.358-3.74)
[2022-07-17 06:09] LABS: Anion Gap 4 (5-15); BUN 15 mg/dL (7-18); BUN/Creat Ratio 34.6 RATIO (10-20); Calcium,Total 8.7 mg/dL (8.5-10.1); Chloride 103 mmol/L (98-107); Creatinine, Serum 0.43 mg/dL (0.70-1.30); EST Glomerular Filtration Rate 214 mL/min (>60); Est Glom Filt Rate - Afr Amer 259 mL/min (>60); Estimated Creatinine Clearance 187.25 ml/min; Glucose 194 mg/dL (74-106); Potassium 4.4 mmol/L (3.5-5.1); Sodium Level 133 mmol/L (136-145)
[2022-07-17] MEDS: Insulin Lispro 100 UNIT/ML INSULN.PEN SC ×4 (06:09→21:54)
--- NOTE | 2022-07-17 06:17 | EX.PCM.CONCC ---
Assessment & Plan Assessment/Plan (1) Mass of right lung: (2) Sepsis: PLAN: Plan RECOMMENDATIONS: 1. Continue empiric broad-spectrum antimicrobials, pending finalized culture data. 2. Wean supplemental oxygen to maintain saturations at or above 90%. 3. Proceed with percutaneous lung biopsy today or tomorrow. 4. Encourage incentive spirometer use and mobilize patient as tolerated. IMPRESSIONS: 1. Sepsis The patient presented to the hospital with sepsis due to probable pneumonia with acute sepsis related organ dysfunction as evidenced by lactic acidemia. The patient was medically managed with supplemental IV fluids and broad-spectrum antimicrobials, which will be continued. Antimicrobials can be de-escalated based upon cultures and sensitivities. 2. Cavitary lung mass The patient has been noting right-sided chest discomfort for several months duration with recent plain film chest x-ray completed by his PCP on June 29 demonstrated a right middle lobe lung mass. CT imaging of the chest did confirm a necrotic appearing cavitary lung mass involving the right middle lobe with air-fluid level and associated mediastinal adenopathy. This would certainly be concerning for an underlying primary lung malignancy. 3. Diabetes mellitus/hypertension/chronic pain syndrome Complicates care, management, recovery and prognosis. Continue sliding scale insulin coverage. This note was generated with [employer] dictation software. It may contain incorrect words, spelling, and punctuation that were not noted in checking the note before signing. HPI Consult Data Date of Consult: 07/17/22 HPI Narrative Reason for Consultation: Lung mass HPI Narrative: The patient is a 56-year-old male, with a history as outlined below, who presented to the emergency department via EMS on July 16 with gradually worsening chest pain. This was associated with some mild nausea and vomiting. The patient also reported several episodes of hematemesis. The patient was evaluated by his primary care provider and had a plain film chest x-ray obtained on June 29, which did demonstrate a right middle lobe lung mass. However, according to the patient, no further follow-up was planned by his PCP. The patient is a lifelong non-smoker, without any significant secondhand exposure. The patient reported that he is retired after working 30 years from the [employer] and currently does part-time work driving the disabled. The patient was initially evaluated in the pulmonary medicine clinic on November 2017 over concerns for shortness of breath. His PFTs at that time were grossly within normal limits. Although there was some initial concern for a diagnosis of asthma, a subsequent bronchoprovocation challenge was negative. The patient was last seen in November 2017, but was lost to follow-up since that time. On presentation to the emergency department, the patient was documented to have a fever 103.2 ?F. He was notably tachycardic and tachypneic, but otherwise hemodynamically stable on 2 L/min via nasal cannula. Initial laboratory evaluation demonstrated an elevated white blood cell count to 15,000. Chemistry profile was notable for a sodium of 128, potassium of 5.4, chloride of 95 and creatinine of 0.95. Lactate was elevated at 2.8. Urine analysis was noncontributory. CTA chest was obtained which demonstrated no evidence for pulmonary embolism. There was evidence of a cavitary mass involving the right middle lobe abutting the pleural surface with central air-fluid level. There was associated paratracheal and subcarinal adenopathy along with widespread pulmonary opacities. The patient was placed on broad-spectrum antimicrobials and admitted to the medical intensive care unit for further management. [facility] Medical History Asthma Atrial fibrillation Chest pain Chronic pain COVID-19 Essential hypertension GERD (gastroesophageal reflux disease) History of diabetes mellitus, type II History of obesity HLD (hyperlipidemia) Lung mass Pure hypercholesterolemia Restless legs syndrome (RLS) Spinal cord stimulator status Type 2 diabetes mellitus Home Medications duloxetine 60 mg capsule,delayed release (Cymbalta) 150 mg PO DAILY antidepress 07/16/22 [History Last Taken Unknown] gabapentin 800 mg tablet 800 mg PO Q6H nerve pain 07/16/22 [History Last Taken Unknown] hydrocodone 10 mg-acetaminophen 325 mg tablet 1 tab PO Q6H PRN Pain 07/16/22 [History Last Taken Unknown] lisinopril 20 mg tablet 20 mg PO DAILY bp 07/16/22 [History Last Taken Unknown] morphine 15 mg tablet,extended release 15 mg PO QHS pain 07/16/22 [History Last Taken Unknown] Allergy/AdvReac Type Severity Reaction Status Date / Time amantadine Allergy Hives Verified 07/16/22 15:59 metformin [From Glucophage] Allergy Itching Verified 07/16/22 15:59 pravastatin [From Pravachol] Allergy Hives Verified 07/16/22 15:59 salmon oil Allergy Itching Verified 07/16/22 15:59 simvastatin [From Zocor] Allergy Hives Verified 07/16/22 15:59 tamsulosin Allergy Swelling Verified 07/16/22 15:59 Family History Mother Breast cancer Hypertension Diabetes Father Hypertension Surgical History H/O gastric bypass History of left hip replacement History of total left knee replacement S/P insertion of spinal cord stimulator Social History household members: spouse Smoking Status: Never smoker second hand exposure: No alcohol intake: current alcohol intake frequency: holidays/special occasions only substance use type: does not use ROS ROS Narrative 10 systems were reviewed with pertinent positives as noted in the HPI above. Physical Exam Const alert, oriented x3 and no apparent distress General Appearance: cooperative HEENT normocephalic, head/scalp atraumatic and moist oral mucous membranes Eyes PERRL, EOMs intact bilaterally and conjunctivae normal Neck supple General: trachea midline Chest inspection of chest normal Resp normal respiratory effort Auscultation: Negative for rales, rhonchi or wheezes Cardio regular rate and regular rhythm GI normal to inspection, nondistended, normoactive bowel sounds Extremity no clubbing, cyanosis or edema Skin no rashes or lesions noted Neuro oriented x3, CN's II-XII intact bilaterally, moves all extremities and no focal motor deficits Psych cooperative and affect normal Lab / Micro Data Result Diagrams: 07/17/22 05:35 07/17/22 05:35 Labs: Laboratory Results - last 24 hr 07/16/22 16:20: WBC 14.7 H, RBC 3.59 L, Hgb 10.2 L, Hct 31.1 L, MCV 86.6, MCH 28.4, MCHC 32.8, RDW Std Deviation 41.2, RDW Coeff of Wood 13.2, Plt Count 518 H, MPV 10.7, Immature Gran % (Auto) 0.700, Neut % (Auto) 84.1 H, Lymph % (Auto) 7.3 L, [place] % (Auto) 7.3, Eos % (Auto) 0.3, Baso % (Auto) 0.3, Absolute Neuts (auto) 12.4 H, Absolute Lymphs (auto) 1.07, Nucleated RBC % 0 07/16/22 16:20: PT 14.6, INR 1.1, APTT 36.5 H 07/16/22 16:20: Sodium 128 L, Potassium 5.4 H, Chloride 95 L, Carbon Dioxide 23.0, Anion Gap 10, BUN 24 H, Creatinine 0.95, Estim Creat Clear Calc 84.76, Est GFR (MDRD) Af Amer 104, Est GFR (MDRD) Non-Af 86, BUN/Creatinine Ratio 25.2 H, Glucose 437 H, Calcium 9.4, Total Bilirubin 0.40, AST 6 L, ALT 13 L, Alkaline Phosphatase 90, Troponin I High Sens 6, Total Protein 7.7, Albumin 2.8 L, Globulin 4.9 H, Albumin/Globulin Ratio 0.6 L 07/16/22 16:20: Lactic Acid 2.8 H* 07/16/22 18:30: Urine Color Yellow, Urine Clarity Sl. Cloudy, Urine pH 5.0, Ur Specific [place] 1.015, Urine Protein 15 H, Urine Glucose (UA) 1000 H, Urine Ketones Negative, Urine Occult Blood Negative, Urine Nitrite Negative, Urine Bilirubin Negative, Urine Urobilinogen 1 H, Ur Leukocyte Esterase Negative, Urine RBC 0 SEEN, Urine WBC 0 SEEN, Ur Squamous Epith Cells 0-5 SEEN, Amorphous Sediment 1+ URATE, Urine Bacteria 0 SEEN, Urine Mucus 0 SEEN 07/16/22 18:30: Urine Osmolality 673, Ur Random Sodium 18 07/16/22 20:52: Lactic Acid 1.1 07/16/22 22:25: MRSA (PCR) Negative 07/16/22 22:27: POC Glucose 299 H 07/16/22 23:45: Uric Acid 3.1 L 07/16/22 23:45: Serum Osmolality 287 07/17/22 05:35: WBC 15.7 H, RBC 3.27 L, Hgb 9.4 L, Hct 28.9 L, MCV 88.4, MCH 28.7, MCHC 32.5, RDW Std Deviation 43.5, RDW Coeff of Wood 13.4, Plt Count 417, MPV 10.1, Immature Gran % (Auto) 0.600, Neut % (Auto) 84.0 H, Lymph % (Auto) 8.2 L, [place] % (Auto) 6.2, Eos % (Auto) 0.7, Baso % (Auto) 0.3, Absolute Neuts (auto) 13.1 H, Absolute Lymphs (auto) 1.29, Nucleated RBC % 0 07/17/22 05:35: Sodium 133 L, Potassium 4.4, Chloride 103, Carbon Dioxide 26.0, Anion Gap 4 L, BUN 15, Creatinine 0.43 L, Estim Creat Clear Calc 187.25, Est GFR (MDRD) Af Amer 259, Est GFR (MDRD) Non-Af 214, BUN/Creatinine Ratio 34.6 H, Glucose 194 H, Calcium 8.7 07/17/22 05:35: TSH 0.26 L Micro: Microbiology 07/16/22 18:30 Urine, Clean Catch Legionella Antigen - Final 07/16/22 18:30 Urine, Clean Catch Streptococcus pneumoniae Antigen (M - Final Radiology Impression Chest CTA 07/16/22 16:26 IMPRESSION: No demonstrated pulmonary embolism or arterial dissection. Cavitary malignant mass fills the right middle lobe. Biopsy is indicated. Widespread bilateral tiny pulmonary opacities throughout both lungs, worse on the right and likely representing metastasis. Electronically Signed: Guerrero Silva MD at 18:23 EDT , Charges/Coding Visit Charges Inpatient E&M: 46618 Init Hosp L3
[2022-07-17] MEDS: Budesonide Respules 0.5 MG/2 ML AMPUL.NEB. INHALATION (06:54)
[2022-07-17] MEDS: Albuterol 2.5 MG/3 ML VIAL.NEB. INHALATION (06:54)
--- NOTE | 2022-07-17 07:33 | PN.HOSP_ITS ---
Reason for Visit Reason for Visit: Diagnoses Sepsis, unspecified organism (07/16/22) Pneumonia, unspecified organism (07/16/22) Other nonspecific abnormal finding of lung field (07/16/22) Subjective Subjective Patient is a 56-year-old gentleman who presented with hemoptysis and fever. CT of the chest did show Cavitary malignant mass fills the right middle lobe. Admitted to the intensive care unit where patient is currently being treated Objective Data Objective Data Vital Signs: Vital Signs Temp Pulse Resp BP Pulse Ox O2 Del Method O2 Flow Rate 98.7 F 73 16 128/59 H 96 Nasal Cannula 4 07/17/22 04:00 07/17/22 07:00 07/17/22 07:00 07/17/22 07:00 07/17/22 07:00 07/17/22 07:00 07/17/22 07:00 Oxygen Flow Rate (L/min) 4 Oxygen Delivery Method Nasal Cannula Weight: 81.2 kg Body Mass Index (BMI) 26.5 Intake & Output: Intake and Output for Last 24 Hours 07/15/22 07/16/22 07/17/22 23:59 23:59 23:59 Intake Total 1670 / 1670 240 / 240 Output Total 800 / 800 Balance 1670 / 1670 -560 / -560 Lab / Micro Data Result Diagrams: 07/17/22 05:35 07/17/22 05:35 Labs: Laboratory Results - last 24 hr 07/16/22 16:20: WBC 14.7 H, RBC 3.59 L, Hgb 10.2 L, Hct 31.1 L, MCV 86.6, MCH 28.4, MCHC 32.8, RDW Std Deviation 41.2, RDW Coeff of Wood 13.2, Plt Count 518 H, MPV 10.7, Immature Gran % (Auto) 0.700, Neut % (Auto) 84.1 H, Lymph % (Auto) 7.3 L, [place] % (Auto) 7.3, Eos % (Auto) 0.3, Baso % (Auto) 0.3, Absolute Neuts (auto) 12.4 H, Absolute Lymphs (auto) 1.07, Nucleated RBC % 0 07/16/22 16:20: PT 14.6, INR 1.1, APTT 36.5 H 07/16/22 16:20: Sodium 128 L, Potassium 5.4 H, Chloride 95 L, Carbon Dioxide 23.0, Anion Gap 10, BUN 24 H, Creatinine 0.95, Estim Creat Clear Calc 84.76, Est GFR (MDRD) Af Amer 104, Est GFR (MDRD) Non-Af 86, BUN/Creatinine Ratio 25.2 H, Glucose 437 H, Calcium 9.4, Total Bilirubin 0.40, AST 6 L, ALT 13 L, Alkaline Phosphatase 90, Troponin I High Sens 6, Total Protein 7.7, Albumin 2.8 L, Globulin 4.9 H, Albumin/Globulin Ratio 0.6 L 07/16/22 16:20: Lactic Acid 2.8 H* 07/16/22 18:30: Urine Color Yellow, Urine Clarity Sl. Cloudy, Urine pH 5.0, Ur Specific [place] 1.015, Urine Protein 15 H, Urine Glucose (UA) 1000 H, Urine Ketones Negative, Urine Occult Blood Negative, Urine Nitrite Negative, Urine Bilirubin Negative, Urine Urobilinogen 1 H, Ur Leukocyte Esterase Negative, Urine RBC 0 SEEN, Urine WBC 0 SEEN, Ur Squamous Epith Cells 0-5 SEEN, Amorphous Sediment 1+ URATE, Urine Bacteria 0 SEEN, Urine Mucus 0 SEEN 07/16/22 18:30: Urine Osmolality 673, Ur Random Sodium 18 07/16/22 20:52: Lactic Acid 1.1 07/16/22 22:25: MRSA (PCR) Negative 07/16/22 22:27: POC Glucose 299 H 07/16/22 23:45: Uric Acid 3.1 L 07/16/22 23:45: Serum Osmolality 287 07/17/22 05:35: WBC 15.7 H, RBC 3.27 L, Hgb 9.4 L, Hct 28.9 L, MCV 88.4, MCH 28.7, MCHC 32.5, RDW Std Deviation 43.5, RDW Coeff of Wood 13.4, Plt Count 417, MPV 10.1, Immature Gran % (Auto) 0.600, Neut % (Auto) 84.0 H, Lymph % (Auto) 8.2 L, [place] % (Auto) 6.2, Eos % (Auto) 0.7, Baso % (Auto) 0.3, Absolute Neuts (auto) 13.1 H, Absolute Lymphs (auto) 1.29, Nucleated RBC % 0 07/17/22 05:35: Sodium 133 L, Potassium 4.4, Chloride 103, Carbon Dioxide 26.0, Anion Gap 4 L, BUN 15, Creatinine 0.43 L, Estim Creat Clear Calc 187.25, Est GFR (MDRD) Af Amer 259, Est GFR (MDRD) Non-Af 214, BUN/Creatinine Ratio 34.6 H, Glucose 194 H, Calcium 8.7 07/17/22 05:35: TSH 0.26 L Micro: Microbiology 07/16/22 18:30 Urine, Clean Catch Legionella Antigen - Final 07/16/22 18:30 Urine, Clean Catch Streptococcus pneumoniae Antigen (M - Final Radiography Diagnostic Testing: Radiology Impression Chest CTA 07/16/22 16:26 IMPRESSION: No demonstrated pulmonary embolism or arterial dissection. Cavitary malignant mass fills the right middle lobe. Biopsy is indicated. Widespread bilateral tiny pulmonary opacities throughout both lungs, worse on the right and likely representing metastasis. Electronically Signed: Guerrero Silva MD at 18:23 EDT , Physical Exam Narrative GENERAL: cooperative HEENT: Atraumatic; normocephalic EYES; Anicteric, Normal Conjunctiva NECK; supple, normal thyroid, RESPIRATORY: Diminished to auscultation CARDIOVASCULAR: Regular S1 S2, GI: soft, normoactive bowel sounds, : No Renal angle tenderness; EXTREMITIES: No edema, no clubbing, MUSCULOSKELETAL: no muscle wasting NEURO: Awake; no lateralizing signs. SKIN: No Rash PSYCH; Flat affect Assessment & Plan Assessment/Plan (1) Mass of right lung: (2) Sepsis: (3) Pneumonia: PLAN: Plan Patient is a 56-year-old gentleman who presented with hemoptysis and fever. CT of the chest did show Cavitary malignant mass fills the right middle lobe. Admitted to the intensive care unit where patient is currently being treated 1. Sepsis ? Secondary to suspected pneumonia in the setting of a cavitary lung lesion. Patient met criteria. Started on broad-spectrum antibiotic therapy admitted to the intensive care unit after cultures have been sent 2. Cavitary lung mass ? Involving the right middle lobe with widespread bilateral tiny pulmonary opaci ties throughout the lung likely representing metastasis. Case discussed with Dr. Montenegro with pulmonary medicine plans for patient to undergo further evaluation with a lung biopsy 3. Hypokalemia ? Treated per protocol 4. Hyponatremia ? Possibly SIADH due to patient underlying mass monitoring with daily BMPs 5. Diabetes mellitus type II -patient's oral hypoglycemics held. Placed on long acting insulin, Accu-Cheks a.c. and at bedtime and covered with sliding scale insulin 6. Hypertension - Blood pressure controlled, home medications continued with dose adjustment as needed 7. BLAKE ruled out 8. DVT prophylaxis ? SC Lovenox Time spent in the patient's overall evaluation,decision-making process, review of diagnostic data, adjustment of management, discussion with other providers, nursing nursing and ancillary staff involved in patient's care documentation, 50 Minutes Charges/Coding Visit Charges Inpatient E&M: 73027 [facility] Hosp L3
--- NOTE | 2022-07-17 09:13 | CT_ITS ---
PROCEDURE: CT GUIDED CORE NEEDLE BIOPSY OF A right upper lobe LUNG LESION INDICATION: Male, 56 years old. Lung Mass PHYSICIAN: Dr. Alida Paredes CONSENT: Written informed consent was obtained having explained the risks, benefits and alternatives in detail with the patient who accepted the risks and agreed to proceed. Laboratory review and clinical assessment was performed. CONSCIOUS SEDATION PROTOCOL: The Drugs used were: 2 mg Versed, IV., and 50 mcg Fentanyl, IV. The sedation time was: 26 minutes. Conscious sedation was started at 11:04 AM terminated at 11:30 AM The conscious sedation protocol was independently monitored. RADIATION DOSAGE (If Supplied By Facility): CTDIvol = ( 20.5 ) mGy, DLP = ( 412.16 ) mGycm Individualized dose optimization techniques were used for this CT. TECHNIQUE: The patient was placed in the supine position. A noncontrast CT was performed to localize the lesion in the right upper lobe . The skin surface was prepped and draped in a sterile fashion. 1% lidocaine was used for local anesthesia. Using CT guidance, a 20-gauge coaxial biopsy device was advanced to the periphery of the lesion. A total of 6 core specimens were obtained. The specimens were placed in a formalin solution. A post procedure CT demonstrated no adverse sequelae or pneumothorax. The patient tolerated the procedure well without adverse event. A negative biopsy does not exclude malignancy. Further imaging or clinical followup based on patient condition and degree of clinical suspicion for malignancy. Suggest rebiopsy, if biopsy results do not match with clinical scenario. CT/Biopsy/Inj or Needle Placement IMPRESSION: 1. CT directed core needle biopsy of the right upper lobe lung lesion using CT image guidance with image documentation as described. Pathology results are pending. 2. Conscious Sedation protocol utilized with independent monitoring. Electronically Signed: Igor Irwin MD at 13:22 EDT ,
[2022-07-17] MEDS: Midazolam 2 MG/2 ML Syringe IV (11:06)
[2022-07-17] MEDS: fentaNYL 100 MCG/2 ML Ampul IV (11:08)
[2022-07-17] MEDS: Lidocaine 2% (20 ml mdv) 20 ML Vial INFILT (11:15)
--- NOTE | 2022-07-17 11:35 | RAD_ITS ---
STUDY: X-RAY CHEST REASON FOR EXAM: Male, 56 years old. Post lung biopsy -- Immediately post lung biopsy TECHNIQUE: A PA inspiration and expiration views. COMPARISON: Comparison is made with prior study June 29, 2022. FINDINGS: The patient is status post right lung biopsy. No evidence of pneumothorax. RAD/Chest Insp/Exp 2 View IMPRESSION: No evidence of pneumothorax on the immediate post right lung biopsy radiographs. Electronically Signed: Iogr Irwin MD at 13:08 EDT ,
--- NOTE | 2022-07-17 12:00 | CASEMGMT ---
SHAN CM Face to Face with for initial transition planning/care coordination assessment as patient is currently at procedure. RN CM introduced self and role at [facility]. Patient lying in bed, alert and oriented. , Luly, willing to participate in assessment and is able to answer all questions appropriately. Care providers, pharmacy, and demographics verified. wishes for patient to discharge home, denies need for home health at this time. states she has no further needs or concerns at this time. CM to follow for discharge planning needs that may arise. PCP: Nam Specialists: manoj Cook; Remi legal support manager Agus Preferred Pharmacy: [facility] Insurance: MMO Prescription Benefit: yes Living Will/HPOA: none LNOK: Living Arrangements: Patient lives with in a single story home with 1 step to enter. Patient is independent at home. Transportation: self, DME/HHC: Patient has raised toilet at home. No previous HHC or SNF. Disposition Plan: Patient to discharge home with family support and follow-up plans in place. Tri BARFIELD, RN, CM
--- NOTE | 2022-07-17 13:00 | RAD_ITS ---
STUDY: X-RAY CHEST REASON FOR EXAM: Male, 56 years old. 2 hr post lung biopsy -- 2 hours post lung biopsy TECHNIQUE: AP inspiration and expiration views. COMPARISON: Comparison is made with prior study done earlier in the day. FINDINGS: No evidence of pneumothorax on the 2 hour post right lung biopsy radiographs. RAD/Chest Insp/Exp 2 View IMPRESSION: No evidence of pneumothorax on the 2 hour post right lung biopsy radiographs. Electronically Signed: Igor Irwin MD at 14:57 EDT ,
[2022-07-17] MEDS: Montelukast 10 MG Tablet PO (14:39)
[2022-07-17] MEDS: Cyanocobalamin 500 MCG Tablet 1000 MCG PO (14:39)
[2022-07-17] MEDS: buPROPion (XL) 150 MG TABLET.XL PO (14:39)
[2022-07-17] MEDS: amLODIPine 5 MG Tablet PO (14:39)
[2022-07-17] MEDS: Acetaminophen 325 MG Tablet 650 MG PO ×2 (14:45→21:41)
[2022-07-17 15:22] LABS: Bedside Glucose 219 mg/dL (74-106)
[2022-07-17 18:30] LABS: Bedside Glucose 349 mg/dL (74-106)
[2022-07-17] MEDS: Atorvastatin Calcium 40 MG Tablet PO (21:41)
[2022-07-17] MEDS: morphine SR 15 MG Tablet PO (21:45)
[2022-07-17] MEDS: 0.9% Saline Lock 10 ML Syringe IV (21:47)
[2022-07-17] MEDS: Insulin Glargine-YFGN 100 UNIT/ML Pen 20 UNIT SC (21:55)
[2022-07-17 23:04] LABS: Bedside Glucose 282 mg/dL (74-106)
[2022-07-18] VITALS (8 sets, daily range): BP systolic 125–153; BP diastolic 65–84; PULSE 78–86; RESP 18–20; TEMP 36.5–37.1; O2SAT 93–100; BMI 26.9
[2022-07-18] MEDS: Gabapentin 800 MG Tablet PO ×3 (00:33→11:14)
[2022-07-18] MEDS: Insulin Lispro 100 UNIT/ML INSULN.PEN SC ×3 (01:26→11:11)
[2022-07-18 01:59] LABS: Bedside Glucose 198 mg/dL (74-106)
[2022-07-18] MEDS: HYDROcodone Bitartrate/Apap 5/325 Tablet PO ×2 (03:39→11:22)
[2022-07-18] MEDS: Benzonatate 100 MG Capsule PO (06:48)
[2022-07-18 07:23] LABS: Vancomycin, Trough Level 12.9 ug/mL (5.0-15.0)
--- NOTE | 2022-07-18 07:51 | PCM.PN.HOSP ---
Reason for Visit Reason for Visit: Diagnoses Sepsis, unspecified organism (07/16/22) Pneumonia, unspecified organism (07/16/22) Other nonspecific abnormal finding of lung field (07/16/22) Subjective Subjective Patient underwent CT guided biopsy of his right upper lobe lung mass. Specimen sent to pathology for definitive diagnosis. Patient clinical condition continues to improve. Currently off oxygen. Plan is for patient to be assessed for possible discharge Objective Data Objective Data Vital Signs: Vital Signs Temp Pulse Resp BP Pulse Ox O2 Del Method O2 Flow Rate 97.7 F L 84 20 H 125/65 H 97 Nasal Cannula 1.5 07/18/22 03:45 07/18/22 03:45 07/18/22 03:45 07/18/22 03:45 07/18/22 03:45 07/18/22 03:45 07/18/22 03:45 Oxygen Flow Rate (L/min) [6] 2 Oxygen Flow Rate (L/min) [5] 2 Oxygen Flow Rate (L/min) [4] 2 Oxygen Flow Rate (L/min) [3] 2 Oxygen Flow Rate (L/min) [2] 2 Oxygen Flow Rate (L/min) [1 ( 2 Initial Baseline)] Oxygen Flow Rate (L/min) 1.5 Oxygen Delivery Method [6] Nasal Cannula Oxygen Delivery Method [5] Nasal Cannula Oxygen Delivery Method [4] Nasal Cannula Oxygen Delivery Method [3] Nasal Cannula Oxygen Delivery Method [2] Nasal Cannula Oxygen Delivery Method [1 ( Nasal Cannula Initial Baseline)] Oxygen Delivery Method Nasal Cannula Weight: 82.3 kg Body Mass Index (BMI) 26.9 Intake & Output: Intake and Output for Last 24 Hours 07/16/22 07/17/22 07/18/22 23:59 23:59 23:59 Intake Total 1670 / 1670 876.75 / 1076.75 980 / 980 Output Total 800 / 800 Balance 1670 / 1670 76.75 / 276.75 980 / 980 Medical Nutrition Assessment Dietitian: Malnutrition Criteria Met Start: 07/17/22 09:47 Freq: Status: Active Protocol: Document 07/17/22 09:47 CLAUDIO (Rec: 07/17/22 09:47 SLA [id number]) Nutrition Malnutrition Evidence of Malnutrition Exists Yes Malnutrition (severe): Acute Illness/Injury Evidenced By Suboptimal Energy Intake ( Severe),Weight Loss (Severe) Clinical Problem Acute Disease or Injury Related Malnutrition Etiology related to pt not hungry and inadequate energy intake Signs/Symptoms as evidenced by <50% po intake and 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 Lab / Micro Data Result Diagrams: 07/18/22 06:34 07/18/22 06:34 Labs: Laboratory Results - last 24 hr 07/17/22 05:35: Cortisol 15.10 07/17/22 14:41: POC Glucose 219 H 07/17/22 18:08: POC Glucose 349 H 07/17/22 21:50: POC Glucose 282 H 07/18/22 01:24: POC Glucose 198 H 07/18/22 06:34: Vancomycin Trough 12.9 Micro: Microbiology 07/16/22 18:30 Urine, Clean Catch Urine Culture - Preliminary GPC Poss Enterococcus sp 07/17/22 03:30 Sputum, Expectorated/Coughed Gram Stain - Final 07/16/22 18:30 Urine, Clean Catch Legionella Antigen - Final 07/16/22 18:30 Urine, Clean Catch Streptococcus pneumoniae Antigen (M - Final Radiography Diagnostic Testing: Radiology Impression Biopsy CT 07/17/22 09:13 IMPRESSION: 1. CT directed core needle biopsy of the right upper lobe lung lesion using CT image guidance with image documentation as described. Pathology results are pending. 2. Conscious Sedation protocol utilized with independent monitoring. Electronically Signed: Igor Irwin MD at 13:22 EDT Reading Location ID and State: [facility] / [place] , Service support , Chest X-Ray 07/17/22 11:35 IMPRESSION: No evidence of pneumothorax on the immediate post right lung biopsy radiographs. Electronically Signed: Igor Irwin MD at 13:08 EDT , Chest X-Ray 07/17/22 13:00 IMPRESSION: No evidence of pneumothorax on the 2 hour post right lung biopsy radiographs. Electronically Signed: Igor Irwin MD at 14:57 EDT , Physical Exam Narrative GENERAL: cooperative HEENT: Atraumatic; normocephalic EYES; Anicteric, Normal Conjunctiva NECK; supple, normal thyroid, RESPIRATORY: Diminished to auscultation CARDIOVASCULAR: Regular S1 S2, GI: soft, normoactive bowel sounds, : No Renal angle tenderness; EXTREMITIES: No edema, no clubbing, MUSCULOSKELETAL: no muscle wasting NEURO: Awake; no lateralizing signs. SKIN: No Rash PSYCH; Flat affect Assessment & Plan Assessment/Plan (1) Mass of right lung: (2) Sepsis: (3) Pneumonia: PLAN: Plan Patient is a 56-year-old gentleman who presented with hemoptysis and fever. CT of the chest did show Cavitary malignant mass fills the right middle lobe. Admitted to the intensive care unit where patient is currently being treated 1. Sepsis ? Secondary to suspected pneumonia in the setting of a cavitary lung lesion. Patient met criteria. Started on broad-spectrum antibiotic therapy admitted to the intensive care unit after cultures have been sent 2. Cavitary lung mass ? Involving the right middle lobe with widespread bilateral tiny pulmonary opacities throughout the lung likely representing metastasis. Case discussed with Dr. Montenegro with pulmonary medicine plans for patient to undergo further evaluation with a lung biopsy ? 07/18/2022;Patient underwent CT guided biopsy of his right upper lobe lung mass. Specimen sent to pathology for definitive diagnosis. Patient clinical condition continues to improve. Currently off oxygen. Plan is for patient to be assessed for possible discharge 3. Hypokalemia ? Treated per protocol 4. Hyponatremia ? Possibly SIADH due to patient underlying mass monitoring with daily BMPs 5. Diabetes mellitus type II -patient's oral hypoglycemics held. Placed on long acting insulin, Accu-Cheks a.c. and at bedtime and covered with sliding scale insulin 6. Hypertension - Blood pressure controlled, home medications continued with dose adjustment as needed 7. BLAKE ruled out 8. DVT prophylaxis ? SC Lovenox Time spent in the patient's overall evaluation,decision-making process, review of diagnostic data, adjustment of management, discussion with other providers, nursing nursing and ancillary staff involved in patient's care documentation, 35 Minutes Charges/Coding Visit Charges Inpatient E&M: 77256 Subs Hosp L2
[2022-07-18] MEDS: 0.9% Saline Lock 10 ML Syringe IV ×2 (08:12→09:49)
[2022-07-18] MEDS: Morphine 4 MG/ML Syringe IV (08:12)
[2022-07-18 08:13] LABS: Absolute Lymphocyte Count 1.44 X10^3/uL (0.83-4.51); Basophil# 0.07 X10^3/uL; Basophil% 0.6 % (0-1); Eosinophil# 0.22 X10^3/uL; Eosinophils% 1.9 % (0-5); Hematocrit 31.4 % (40-54); Hemoglobin 9.9 g/dL (13.0-16.5); Lymphocyte # 1.44 X10^3/ul (0.83-4.51); Lymphocyte % 12.5 % (19-41); Mean Corp Hgb Conc 31.5 g/dL (32-36); Mean Corpuscular Hgb 28.5 pg (27.0-32.0); Mean Corpuscular Volume 90.5 fL (80-94); Mean Platelet Vol. 10.4 fl (6.2-12.0); Monocyte# 0.67 X10^3/uL; Monocyte% 5.8 % (0-10); NRBC Flagged by Analyzer 0 % (0-5); Neutrophil # 9.01 X10^3/uL (2.7-7.7); Neutrophil % 78.3 % (47-70); Platelet Count 485 K/mm3 (150-450); RBC Distribution Width CV 13.4 % (11.6-14.6); RBC Distribution Width SD 43.8 fl (35.1-43.9); Red Blood Count 3.47 M/mm3 (4.6-6.2); White Blood Count 11.5 K/mm3 (4.4-11.0)
--- NOTE | 2022-07-18 08:15 | PCM.RX.CS ---
Consult Pharmacy has been consulted to manage selected antiobiotic: Vancomycin Type of Consult: Follow-up Suspected Infection: Sepsis, Pneumonia Labs: Vancomycin Trough 12.9 ug/mL (5.0-15.0) 07/18/22 06:34 Microbiology: Microbiology 07/16/22 18:30 Urine, Clean Catch Urine Culture - Preliminary GPC Poss Enterococcus sp 07/17/22 03:30 Sputum, Expectorated/Coughed Gram Stain - Final 07/16/22 18:30 Urine, Clean Catch Legionella Antigen - Final 07/16/22 18:30 Urine, Clean Catch Streptococcus pneumoniae Antigen (M - Final Goal Trough: 15-20 mcg/mL Pharmacy Plan for Drug Dosing: VANCOMYCIN LEVEL RECEIVED Current Vancomycin Dose: 1500mg q12h (,) Number of Doses Received: x1 loading dose, x2 1500mg doses Vancomycin Level: trough resulted at 12.9 Hours Since Last Dose: ~10 hour level Renal Function: SrCr 0.43 Renal Function Trend: SrCr improved from 0.95 on 07/16/22 Lab/Micro: Vancomycin Plan/Comments: resulted trough of 12.9 is slightly below the ordered goal trough range of 15-20. Due to pts improving renal function, recommend increasing dose to 1750mg q12h and checking trough prior to 4th dose. Pending Level: 07/19/22 at 2030 Pharmacy Service will continue to monitor and adjust dosing as required. Follow-Up Labs: Trough Vancomycin - 07/19/22 at 2030
[2022-07-18 08:18] LABS: AST(SGOT) 14 U/L (15-37); Alanine Aminotransfer ALT/SGPT 15 U/L (16-61); Albumin, Serum 2.2 g/dL (3.2-5.0); Alkaline Phosphatase 83 U/L (45-117); Anion Gap 5 (5-15); BUN 11 mg/dL (7-18); BUN/Creat Ratio 21.9 RATIO (10-20); Bilirubin, Direct 0.12 mg/dL (0.00-0.30); Calcium,Total 8.6 mg/dL (8.5-10.1); Chloride 105 mmol/L (98-107); EST Glomerular Filtration Rate 180 mL/min (>60); Est Glom Filt Rate - Afr Amer 218 mL/min (>60); Globulin 4.6 g/dL (2.2-4.2); Glucose 268 mg/dL (74-106); Phosphorus 2.9 mg/dL (2.5-4.9); Potassium 4.3 mmol/L (3.5-5.1); Protein, Total 6.8 g/dL (6.4-8.2); Sodium Level 137 mmol/L (136-145)
[2022-07-18 08:23] LABS: Bedside Glucose 237 mg/dL (74-106)
[2022-07-18] MEDS: Cyanocobalamin 500 MCG Tablet 1000 MCG PO (09:29)
[2022-07-18] MEDS: buPROPion (XL) 150 MG TABLET.XL PO (09:29)
[2022-07-18] MEDS: Montelukast 10 MG Tablet PO (09:29)
[2022-07-18] MEDS: amLODIPine 5 MG Tablet PO (09:29)
[2022-07-18] MEDS: levoFLOXacin 750 MG Tablet PO (11:14)
--- NOTE | 2022-07-18 11:20 | NURSING ---
Addendum entered by Clarisa See 07/18/22 12:07: Received med list from WILIAM Smith at Dr Browning's office. Home med list updated. Dr Jeffrey notified. Original Note: Pt not able to list all of home medications, states recently saw PCP who made changes to medications. Call placed to Dr Browning's office at . Message left for WILIAM to fax med list to PCU fax and if any questions provided PCU main line for call back.
[2022-07-18 11:27] LABS: Bedside Glucose 277 mg/dL (74-106)
--- NOTE | 2022-07-18 12:13 | DS.PCM_ITS ---
Providers Date of Admission: 07/16/22 Date of Discharge: 07/18/22 Primary Care Physician: Dr. Tatiana Browning, Consultations 07/16/22 21:50 Consult: Flame Burner / Pulmonary Medicine Routine Consulting Provider: Jomar Snell Reason for Consult: Lung mass, consider bronch. EMERGENT Consult: No MD Notified: Yes Date Notified: 07/16/22 Time Notified: 21:07 Method of Notification: ED Physician Initiated 07/17/22 09:13 Consult: Interventional Radiology Routine Consulting Provider: Igor Irwin Reason for Consult: Lung Mass Biopsy EMERGENT Consult: Yes MD Notified: Yes Date Notified: 07/17/22 Time Notified: 09:13 Method of Notification: Verbal Reason For Visit: SEPSIS 2NDARY TO PNEUMONIA Diagnosis Discharge Diagnosis (1) Mass of right lung: Status: Acute Code(s): R91.8 - Other nonspecific abnormal finding of lung field (2) Sepsis: Status: Acute Code(s): A41.9 - Sepsis, unspecified organism (3) Pneumonia: Status: Acute Code(s): J18.9 - Pneumonia, unspecified organism Plan Patient is a 56-year-old gentleman who presented with hemoptysis and fever. CT of the chest did show Cavitary malignant mass fills the right middle lobe. Admitted to the intensive care unit where patient is currently being treated 1. Sepsis ? Secondary to suspected pneumonia in the setting of a cavitary lung lesion. Patient met criteria. Started on broad-spectrum antibiotic therapy admitted to the intensive care unit after cultures have been sent 2. Cavitary lung mass ? Involving the right middle lobe with widespread bilateral tiny pulmonary opacities throughout the lung likely representing metastasis. Case discussed with Dr. Montenegro with pulmonary medicine plans for patient to undergo further evaluation with a lung biopsy ? 07/18/2022;Patient underwent CT guided biopsy of his right upper lobe lung mass. Specimen sent to pathology for definitive diagnosis. Patient to follow- up with pulmonary medicine within a week for results of the biopsy 3. Hypokalemia ? Treated per protocol 4. Hyponatremia ? Possibly SIADH due to patient underlying mass monitoring with daily BMPs 5. Diabetes mellitus type II -patient's oral hypoglycemics held. Placed on long acting insulin, Accu-Cheks a.c. and at bedtime and covered with sliding scale insulin 6. Hypertension - Blood pressure controlled, home medications continued with dose adjustment as needed 7. BLAKE ruled out 8. DVT prophylaxis ? SC Lovenox Time spent in the patient's overall evaluation,decision-making process, review of diagnostic data, adjustment of management, discussion with other providers, nursing nursing and ancillary staff involved in patient's care documentation, 35 Minutes Medications at Discharge Home Medications gabapentin 800 mg tablet 800 mg PO 4X/DAY nerve pain 07/16/22 hydrocodone 10 mg-acetaminophen 325 mg tablet 1 tab PO Q6H PRN Pain 07/16/22 lisinopril 20 mg tablet 40 mg PO DAILY bp 07/16/22 morphine 15 mg tablet,extended release 15 mg PO BID PRN Pain 07/16/22 albuterol sulfate 90 mcg/actuation aerosol inhaler (ProAir HFA) 2 puff inhalation Q6H ASTHMA 07/18/22 atorvastatin 40 mg tablet 40 mg PO DAILY CHOLESTEROL 07/18/22 benzonatate 100 mg capsule 100 mg PO Q4H PRN PRN COUGH #30 caps 07/18/22 cyanocobalamin (vitamin B-12) 500 mcg tablet 500 mcg PO DAILY HX GASTRIC BIPASS 07/18/22 dulaglutide 4.5 mg/0.5 mL subcutaneous pen injector (Trulicity) 4.5 mg subcut QWEEK DIABETES 07/18/22 finasteride 5 mg tablet 5 mg PO DAILY BPH 07/18/22 fluticasone furoate 100 mcg-vilanterol 25 mcg/dose inhalation powder (Breo Ellipta) 1 inh inhalation COUGH 07/18/22 fluticasone propionate 50 mcg/actuation nasal spray,suspension 1 spray intranasal DAILY NASAL SPRAY 07/18/22 insulin glargine U-300 conc 300 unit/mL (3 mL) subcutaneous pen (Toujeo Max U- 300 SoloStar) 16 unit subcut BID DIABETES 07/18/22 levofloxacin 750 mg tablet 750 mg PO DAILY@0600 #5 tabs 07/18/22 montelukast 10 mg tablet 10 mg PO DAILY #30 tabs 07/18/22 multivitamin 1 tab PO DAILY SUPPLEMENT 07/18/22 ondansetron 8 mg disintegrating tablet 8 mg PO Q12H PRN Nausea 07/18/22 pantoprazole 20 mg tablet,delayed release 20 mg PO DAILY GERD 07/18/22 phenol 1.4 % mucosal aerosol spray (Sore Throat (phenol)) 3 spray mucous membran e Q2H PRN PRN Tingling in throat #0 mL 07/18/22 rivaroxaban 20 mg tablet (Xarelto) 20 mg PO DAILY AFIB 07/18/22 sildenafil 100 mg tablet 100 mg PO DAILY PRN Erectile Dysfunction 07/18/22 spironolactone 25 mg tablet 25 mg PO DAILY BP 07/18/22 Hospital Course Summary of Care Provided Minutes Spent on Discharge: 35 Physical Exam Narrative GENERAL: cooperative HEENT: Atraumatic; normocephalic EYES; Anicteric, Normal Conjunctiva NECK; supple, normal thyroid, RESPIRATORY: Diminished to auscultation CARDIOVASCULAR: Regular S1 S2, GI: soft, normoactive bowel sounds, : No Renal angle tenderness; EXTREMITIES: No edema, no clubbing, MUSCULOSKELETAL: no muscle wasting NEURO: Awake; no lateralizing signs. SKIN: No Rash PSYCH; Flat affect Medical Records Data Medical Nutrition Assessment Dietitian: Malnutrition Criteria Met Start: 07/17/22 09:47 Freq: Status: Active Protocol: Document 07/17/22 09:47 SLA (Rec: 07/17/22 09:47 [facility] [id number]) Nutrition Malnutrition Evidence of Malnutrition Exists Yes Malnutrition (severe): Acute Illness/Injury Evidenced By Suboptimal Energy Intake ( Severe),Weight Loss (Severe) Clinical Problem Acute Disease or Injury Related Malnutrition Etiology related to pt not hungry and inadequate energy intake Signs/Symptoms as evidenced by <50% po intake and 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 Weight / BMI Weight Weight: 82.3 kg Body Mass Index (BMI) 26.9 ABG / Lab / Microbiology Data Result Diagrams: 07/18/22 06:34 07/18/22 06:34 Laboratory: Laboratory Results - last 24 hr 07/17/22 14:41: POC Glucose 219 H 07/17/22 18:08: POC Glucose 349 H 07/17/22 21:50: POC Glucose 282 H 07/18/22 01:24: POC Glucose 198 H 07/18/22 06:34: Vancomycin Trough 12.9 07/18/22 06:34: WBC 11.5 H, RBC 3.47 L, Hgb 9.9 L, Hct 31.4 L, MCV 90.5, MCH 28.5, MCHC 31.5 L, RDW Std Deviation 43.8, RDW Coeff of Wood 13.4, Plt Count 485 H, MPV 10.4, Immature Gran % (Auto) 0.900, Neut % (Auto) 78.3 H, Lymph % (Auto) 12.5 L, [place] % (Auto) 5.8, Eos % (Auto) 1.9, Baso % (Auto) 0.6, Absolute Neuts (auto) 9.0 H, Absolute Lymphs (auto) 1.44, Nucleated RBC % 0 07/18/22 06:34: Sodium 137, Potassium 4.3, Chloride 105, Carbon Dioxide 27.0, An ion Gap 5, BUN 11, Creatinine 0.50 L, Estim Creat Clear Calc 155.80, Est GFR (MDRD) Af Amer 218, Est GFR (MDRD) Non-Af 180, BUN/Creatinine Ratio 21.9 H, Glucose 268 H, Calcium 8.6, Phosphorus 2.9, Magnesium 2.0, Total Bilirubin 0.20, Direct Bilirubin 0.12, AST 14 L, ALT 15 L, Alkaline Phosphatase 83, Total Protein 6.8, Albumin 2.2 L, Globulin 4.6 H 07/18/22 06:43: POC Glucose 237 H 07/18/22 11:06: POC Glucose 277 H Microbiology: Microbiology 07/16/22 18:30 Urine, Clean Catch Urine Culture - Final GPC Poss Enterococcus sp 07/17/22 11:30 Biopsy - Tissue Gram Stain - Final 07/17/22 03:30 Sputum, Expectorated/Coughed Gram Stain - Final 07/16/22 18:30 Urine, Clean Catch Legionella Antigen - Final 07/16/22 18:30 Urine, Clean Catch Streptococcus pneumoniae Antigen (M - Final Radiography Diagnostic Testing: Radiology Impression Biopsy CT 07/17/22 09:13 IMPRESSION: 1. CT directed core needle biopsy of the right upper lobe lung lesion using CT image guidance with image documentation as described. Pathology results are pending. 2. Conscious Sedation protocol utilized with independent monitoring. Electronically Signed: Igor Irwin MD at 13:22 EDT , Chest X-Ray 07/17/22 11:35 IMPRESSION: No evidence of pneumothorax on the immediate post right lung biopsy radiographs. Electronically Signed: Igor Irwin MD at 13:08 EDT , Chest X-Ray 07/17/22 13:00 IMPRESSION: No evidence of pneumothorax on the 2 hour post right lung biopsy radiographs. 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 Needle Biopsy: Lung, RAD RN Procedural Sedation Discharge Orders/Prescriptions Prescriptions: New benzonatate 100 mg Capsule 100 mg PO Q4H PRN PRN (Reason: COUGH) Qty: 30 0RF montelukast 10 mg Tablet 10 mg PO DAILY Qty: 30 0RF levofloxacin 750 mg Tablet 750 mg PO DAILY@0600 Qty: 5 0RF Sore Throat (phenol) 1.4 % Aerosol,[place] 3 spray mucous membrane Q2H PRN PRN (Reason: Tingling in throat) Qty: 0 0RF Continued lisinopril 20 mg Tablet 40 mg PO DAILY hydrocodone-acetaminophen 10-325 mg tablet 1 tab PO Q6H PRN (Reason: Pain) Label Comments: 06/10/22 TAKE 1 TABLET BY MOUTH EVERY 6 HOURS FOR 30 DAYS gabapentin 800 mg tablet 800 mg PO 4X/DAY morphine 15 mg Tablet Extended Release 15 mg PO BID PRN (Reason: Pain) multivitamin Tablet 1 tab PO DAILY atorvastatin 40 mg Tablet 40 mg PO DAILY sildenafil 100 mg Tablet 100 mg PO DAILY PRN (Reason: Erectile Dysfunction) Rx Instructions: administer 30 minutes to 4 hours before activity spironolactone 25 mg Tablet 25 mg PO DAILY ondansetron 8 mg Tablet,Disintegrating 8 mg PO Q12H PRN (Reason: Nausea) pantoprazole 20 mg Tablet,Delayed Release (Dr/Ec) 20 mg PO DAILY cyanocobalamin (vitamin B-12) 500 mcg Tablet 500 mcg PO DAILY albuterol sulfate [ProAir HFA] 90 mcg/actuation Hfa Aerosol Inhaler 2 puff INHALATION Q6H fluticasone propionate 50 mcg/actuation [place],Suspension 1 spray INTRANASAL DAILY Rx Instructions: administer into each nostril finasteride 5 mg Tablet 5 mg PO DAILY Xarelto 20 mg Tablet 20 mg PO DAILY Rx Instructions: must administer with evening meal fluticasone furoate-vilanterol [Breo Ellipta] 100-25 mcg/dose Blister With Device 1 inh INHALATION Toujeo Max U-300 SoloStar 300 unit/mL (3 mL) Insulin Pen 16 unit SUBCUT BID Trulicity 4.5 mg/0.5 mL Pen Injector 4.5 mg SUBCUT QWEEK Referrals / Follow Up: Jomar Snell MD [Med Staff - Active Staff] - 07/20/22 10:30 am Tatiana Browning DO [Primary Care Provider] - Disposition Disposition (needs filled in before D/C Order can be placed): Home, Self Care Charges/Coding Visit Charges Inpatient E&M: 13351 Disch Hosp >30min
--- NOTE | 2022-07-18 13:35 | PHA.DC.MC ---
Pharmacy Service has performed discharge medication reconciliation and counseling for this patient. 1. LEVOFLOXACIN 750MG PO DAILY X 5 DAYS 2. BENZONATATE 10MG PO Q4H PRN COUGH 3. SORE THROAT SPRAY 3 SPRAYS MM Q2H PRN TINGLING IN THROAT The patient's discharge medication list was reviewed for discrepancies and discrepancies were resolved. Home Medications gabapentin 800 mg tablet 800 mg PO 4X/DAY nerve pain 07/16/22 hydrocodone 10 mg-acetaminophen 325 mg tablet 1 tab PO Q6H PRN Pain 07/16/22 lisinopril 20 mg tablet 40 mg PO DAILY bp 07/16/22 morphine 15 mg tablet,extended release 15 mg PO BID PRN Pain 07/16/22 albuterol sulfate 90 mcg/actuation aerosol inhaler (ProAir HFA) 2 puff inhalation Q6H ASTHMA 07/18/22 atorvastatin 40 mg tablet 40 mg PO DAILY CHOLESTEROL 07/18/22 benzonatate 100 mg capsule 100 mg PO Q4H PRN PRN COUGH #30 caps 07/18/22 cyanocobalamin (vitamin B-12) 500 mcg tablet 500 mcg PO DAILY HX GASTRIC BIPASS 07/18/22 dulaglutide 4.5 mg/0.5 mL subcutaneous pen injector (Trulicity) 4.5 mg subcut QWEEK DIABETES 07/18/22 finasteride 5 mg tablet 5 mg PO DAILY BPH 07/18/22 fluticasone furoate 100 mcg-vilanterol 25 mcg/dose inhalation powder (Breo Ellipta) 1 inh inhalation COUGH 07/18/22 fluticasone propionate 50 mcg/actuation nasal spray,suspension 1 spray intranasal DAILY NASAL SPRAY 07/18/22 insulin glargine U-300 conc 300 unit/mL (3 mL) subcutaneous pen (Toujeo Max U-300 SoloStar) 16 unit subcut BID DIABETES 07/18/22 levofloxacin 750 mg tablet 750 mg PO DAILY@0600 #5 tabs 07/18/22 montelukast 10 mg tablet 10 mg PO DAILY #30 tabs 07/18/22 multivitamin 1 tab PO DAILY SUPPLEMENT 07/18/22 ondansetron 8 mg disintegrating tablet 8 mg PO Q12H PRN Nausea 07/18/22 pantoprazole 20 mg tablet,delayed release 20 mg PO DAILY GERD 07/18/22 phenol 1.4 % mucosal aerosol spray (Sore Throat (phenol)) 3 spray mucous membrane Q2H PRN PRN Tingling in throat #0 mL 07/18/22 rivaroxaban 20 mg tablet (Xarelto) 20 mg PO DAILY AFIB 07/18/22 sildenafil 100 mg tablet 100 mg PO DAILY PRN Erectile Dysfunction 07/18/22 spironolactone 25 mg tablet 25 mg PO DAILY BP 07/18/22 The patient was counseled on the following discharge medications and changes in medications for homegoing were reviewed. The Reason for Use, instructions for use, and potential side effects were reviewed for all new medications. The patient's questions regarding all of their medications were answered. The patient was able to verbally demonstrate an understanding of their discharge medications. Patient counseled by pharmacy technician program directorDeshawn.
== END 2022-07-18 16:08 | disposition home or self-care (01) | DRG 871 ==
LOC: ED 20:00 → ICU 21:33 → PCU 07-17 13:05
PROVIDERS: Admitting Provider Hospitalist; Emergency Provider Emergency Medicine; PCP Family Medicine; Visit Provider Internal Medicine
DX: A41.9 Sepsis, unspecified organism (principal); J18.9 Pneumonia, unspecified organism; E43 Unspecified severe protein-calorie malnutrition; E22.2 Syndrome of inappropriate secretion of antidiuretic hormone; E87.20 Acidosis, unspecified; E11.9 Type 2 diabetes mellitus without complications; I10 Essential (primary) hypertension; E78.00 Pure hypercholesterolemia, unspecified; E87.6 Hypokalemia; Z79.84 Long term (current) use of oral hypoglycemic drugs; Z86.16 Personal history of COVID-19; R59.0 Localized enlarged lymph nodes; Z80.3 Family history of malignant neoplasm of breast; R07.89 Other chest pain; G89.4 Chronic pain syndrome; R91.8 Other nonspecific abnormal finding of lung field; Z68.26 Body mass index [BMI] 26.0-26.9, adult
CPT/HCPCS: 36415; 71046; 71275; 77012; 80048; 80053; 80076; 80202; 81001; 82533; 82962; 83605; 83735; 83930; 83935; 84100; 84300; 84443; 84484; 84550; 85025; 85610; 85730; 87040; 87070; 87075; 87077; 87086; 87088; 87186; 87205; 87449; 87641; 88172; 88305; 88312; 88313; 93005; 94640; 94668; 94762; 97802; 99156; 99252; 99285; J7030; J7040; J7050; Q9967; A4216; C2613; G0463; J0612; J2405

== ENCOUNTER → 2022-07-25 | Outpatient (CLI) | payer OTHER, SELFPAY ==
--- NOTE | 2022-07-26 05:48 | PFTCOMP ---
COMPLETE PULMONARY FUNCTION TEST INTERPRETATION Brief HPI: Patient is a 56-year-old male, currently under the care of myself, who presents to [facility] for complete pulmonary function tests secondary to diagnosis of lung abscess. Respiratory therapist reports good effort and reproducible results. Interpretation: Forced expiration spirometry shows no large airways obstructive ventilatory defect with an FEV1 of 84% predicted. There is no significant bronchodilator response by strict ATS criteria. Spirograms are of good quality and plateau normally. The respiratory flow volume loop shows a normal pattern. Lung volumes by body plethysmography show a normal total lung capacity at 5.64 L, 89% predicted. All other lung volumes are within normal limits. Diffusion capacity by carbon monoxide is normal at 100% predicted. The airway resistance is normal. Compared to previous pulmonary function tests from 11/20/2017, there is been a significant reduction in FVC and FEV1 by 28% and 32% respectively. Impression: Grossly normal pulmonary function test, but significant worsening compared to 2018
== END | disposition home or self-care (01) ==
LOC: PSN 08:03
PROVIDERS: PCP Family Medicine; Referring Provider Internal Medicine Critical Care Medicine; Visit Provider Internal Medicine Critical Care Medicine
DX: J85.2 Abscess of lung without pneumonia (principal)
CPT/HCPCS: 94060; 94726; 94729

== ENCOUNTER → 2022-07-31 | Outpatient (CLI) | payer OTHER, SELFPAY | END | disposition home or self-care (01) | LOC: SL 12:05 | PROVIDERS: PCP Family Medicine; Referring Provider Nurse Practitioner Acute Care; Visit Provider Nurse Practitioner Acute Care | DX: R09.02 Hypoxemia (principal) | CPT/HCPCS: 94762 ==

== ENCOUNTER 2022-08-02 06:26 | Emergency (ER) | payer OTHER, SELFPAY ==
--- NOTE | 2022-08-02 06:50 | RAD_ITS ---
INDICATION: pain, swelling, nki EXAMINATION/TECHNIQUE: X-RAY - LEFT XR Knee 2 VIEWS COMPARISON: None. FINDINGS: Frontal and lateral views of the left knee were obtained. A knee prosthesis is identified. Curvilinear ossification is adjacent to the medial femoral condyle. No acute fracture is identified. [id number] degenerative changes. No gross joint effusion. RAD/Knee 1 or 2 Views IMPRESSION: No acute fracture identified. 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 Knee prosthesis. Electronically Signed: Candelario Montalvo MD at 7:17 EDT ,
[2022-08-02 07:31] LABS: BUN 34 mg/dL (7-18); BUN/Creat Ratio 27.2 RATIO (10-20); Calcium,Total 9.2 mg/dL (8.5-10.1); Creatinine, Serum 1.25 mg/dL (0.70-1.30); EST Glomerular Filtration Rate 63 mL/min (>60); Est Glom Filt Rate - Afr Amer 76 mL/min (>60); Glucose 407 mg/dL (74-106); Uric Acid 6.5 mg/dL (3.5-7.2)
[2022-08-02 07:32] LABS: Anion Gap 8 (5-15); Chloride 98 mmol/L (98-107); Potassium 5.3 mmol/L (3.5-5.1); Sodium Level 127 mmol/L (136-145)
[2022-08-02 07:36] LABS: Lactic Acid 1.6 mmol/L (0.4-1.9)
[2022-08-02 07:44] LABS: Absolute Lymphocyte Count 1.18 X10^3/uL (0.83-4.51); Absolute Neutrophil Count 24.7 X10^3/uL (2.0-7.7); Basophil% 0.4 % (0-1); Differential Indicated SCAN CRITERIA MET; Eosinophil# 0.02 X10^3/uL; Eosinophils% 0.1 % (0-5); Hematocrit 38.1 % (40-54); Hemoglobin 12.7 g/dL (13.0-16.5); Lymphocyte # 1.18 X10^3/ul (0.83-4.51); Lymphocyte % 4.3 % (19-41); Mean Corp Hgb Conc 33.3 g/dL (32-36); Mean Corpuscular Hgb 29.3 pg (27.0-32.0); Mean Corpuscular Volume 87.8 fL (80-94); Mean Platelet Vol. 12.2 fl (6.2-12.0); Monocyte# 1.34 X10^3/uL; Monocyte% 4.9 % (0-10); NRBC Flagged by Analyzer 0 % (0-5); Neutrophil # 24.66 X10^3/uL (2.7-7.7); Neutrophil % 89.7 % (47-70); POSITIVE DIFFERENTIAL YES; Platelet Count 356 K/mm3 (150-450); RBC Distribution Width CV 15.3 % (11.6-14.6); RBC Distribution Width SD 48.8 fl (35.1-43.9); Red Blood Count 4.34 M/mm3 (4.6-6.2); White Blood Count 27.5 K/mm3 (4.4-11.0)
--- NOTE | 2022-08-02 07:45 | EDS_ITS ---
HPI History of Present Illness Informant: patient and spouse/S.O. Narrative Narrative: Patient evaluated during downtime, took the patient over from Dr. Ribera. Orders were placed. Nontraumatic left knee pain and swelling worse with motions yesterday evening. States has pain also in his wrist on the left side. History of left total knee arthroplasty [facility] ([facility]) last 5 to 6 years. He had previous left total hip [place] [address] Jacobsen. Patient currently being treated for right middle lobe abscess positive for Enterococcus faecalis on Augmentin followed by Dr. Snell. He was hospitalized less than 3 weeks ago with a biopsy had initial concerning mass. Denies tobacco history. Diabetes history. Denies any trauma or any injuries. Denies fevers. Paroxysmal atrial fibrillation history of ablation currently not on anticoagulants. Reports pain in the worse with movement. Prior similar symptoms: No PFSH PFSH Medical History Asthma Atrial fibrillation Chest pain Chronic pain COVID-19 Essential hypertension GERD (gastroesophageal reflux disease) History of diabetes mellitus, type II History of obesity HLD (hyperlipidemia) Lung mass Pure hypercholesterolemia Restless legs syndrome (RLS) Spinal cord stimulator status Type 2 diabetes mellitus Home Medications gabapentin 800 mg tablet 800 mg PO 4X/DAY nerve pain 07/16/22 [History Last Taken Unknown] hydrocodone 10 mg-acetaminophen 325 mg tablet 1 tab PO Q6H PRN Pain 07/16/22 [History Last Taken Unknown] lisinopril 20 mg tablet 40 mg PO DAILY bp 07/16/22 [History Last Taken Unknown] morphine 15 mg tablet,extended release 15 mg PO BID PRN Pain 07/16/22 [History Last Taken Unknown] albuterol sulfate 90 mcg/actuation aerosol inhaler (ProAir HFA) 2 puff inhalation Q6H ASTHMA 07/18/22 [History Last Taken Unknown] atorvastatin 40 mg tablet 40 mg PO DAILY CHOLESTEROL 07/18/22 [History Last Taken Unknown] cyanocobalamin (vitamin B-12) 500 mcg tablet 500 mcg PO DAILY HX GASTRIC BIPASS 07/18/22 [History Last Taken Unknown] dulaglutide 4.5 mg/0.5 mL subcutaneous pen injector (Trulicity) 4.5 mg subcut QWEEK DIABETES 07/18/22 [History Last Taken Unknown] finasteride 5 mg tablet 5 mg PO DAILY BPH 07/18/22 [History Last Taken Unknown] fluticasone furoate 100 mcg-vilanterol 25 mcg/dose inhalation powder (Breo Ellipta) 1 inh inhalation COUGH 07/18/22 [History Last Taken Unknown] fluticasone propionate 50 mcg/actuation nasal spray,suspension 1 spray intranasal DAILY NASAL SPRAY 07/18/22 [History Last Taken Unknown] insulin glargine U-300 conc 300 unit/mL (3 mL) subcutaneous pen (Toujeo Max U- 300 SoloStar) 16 unit subcut BID DIABETES 07/18/22 [History Last Taken Unknown] montelukast 10 mg tablet 10 mg PO DAILY #30 tabs 07/18/22 [Rx Last Taken Unknown] multivitamin 1 tab PO DAILY SUPPLEMENT 07/18/22 [History Last Taken Unknown] ondansetron 8 mg disintegrating tablet 8 mg PO Q12H PRN Nausea 07/18/22 [History Last Taken Unknown] pantoprazole 20 mg tablet,delayed release 20 mg PO DAILY GERD 07/18/22 [History Last Taken Unknown] phenol 1.4 % mucosal aerosol spray (Sore Throat (phenol)) 3 spray mucous membrane Q2H PRN PRN Tingling in throat #0 mL 07/18/22 [Rx Last Taken Unknown] sildenafil 100 mg tablet 100 mg PO DAILY PRN Erectile Dysfunction 07/18/22 [History Last Taken Unknown] spironolactone 25 mg tablet 25 mg PO DAILY BP 07/18/22 [History Last Taken Unknown] amoxicillin 875 mg-potassium clavulanate 125 mg tablet 1 tab PO BID #60 tabs 07/20/22 [Rx Last Taken Unknown] benzonatate 100 mg capsule 100 mg PO Q4H PRN PRN COUGH #90 caps 07/20/22 [Rx Last Taken Unknown] albuterol sulfate 2.5 mg/3 mL (0.083 %) solution for nebulization 2.5 mg (3 mL) inhalation Q4H PRN Sob &/Or Wheezing #180 mL 07/27/22 [Rx Last Taken Unknown] Allergy/AdvReac Type Severity Reaction Status Date / Time amantadine Allergy Hives Verified 07/20/22 10:34 metformin [From Glucophage] Allergy Itching Verified 07/20/22 10:34 pravastatin [From Pravachol] Allergy Hives Verified 07/20/22 10:34 salmon oil Allergy Itching Verified 07/20/22 10:34 simvastatin [From Zocor] Allergy Hives Verified 07/20/22 10:34 tamsulosin Allergy Swelling Verified 07/20/22 10:34 Family History Mother Breast cancer Hypertension Diabetes Father Hypertension Surgical History H/O gastric bypass History of left hip replacement History of total left knee replacement S/P insertion of spinal cord stimulator Social History household members: spouse Smoking Status: Never smoker second hand exposure: No alcohol intake: current alcohol intake frequency: holidays/special occasions only substance use type: does not use ROS ROS ED Constitutional Constitutional ED: Denies chills, fever(s) or sweats Eyes Eyes: Denies change in vision ENT ENT ED: Denies dysphagia or sore throat Cardiovascular Cardiovascular: Denies chest pain, leg edema, palpitations or racing heartbeat Respiratory/Chest Respiratory/Chest: Denies cough, dyspnea or dyspnea on exertion Gastrointestinal Gastrointestinal: Denies abdominal pain, diarrhea, nausea or vomiting Genitourinary Genitourinary ED: Denies dysuria, hematuria or urinary frequency Musculoskeletal Musculoskeletal: Reports arthralgias and extremity pain; Denies back pain or neck pain Integumentary Denies rash or wounds Neurologic Neurologic: Denies headache(s), paresthesias or weakness EXAM Physical Exam Const Positive well nourished and well developed General Appearance ED: well developed and NAD HEENT Reports moist mucous membranes normocephalic and atraumatic Eyes PERRL, EOMs intact bilaterally and conjunctivae normal General Eye ED: Yes normal appearance of both eyes Neck no lymphadenopathy and supple General: Negative for tenderness Chest Wall Chest: Negative for tenderness Resp normal respiratory effort and normal air movement Effort and Inspection: symmetric chest movement; Negative for respiratory distress Cardio regular rate, regular rhythm and no murmurs Peripheral Pulses: pulses 2+ throughout GI normal to inspection, nondistended, normoactive bowel sounds and non-tender Palpation: Negative for guarding or rebound tenderness present Back/Spine no CVA tenderness and no thoracic nor lumbar tenderness Extremity Extremity Narrative: Left lower extremity: No hip tenderness. Knee with a midline scar, there was swelling lateral and medially at the joint, was warm to palpation no erythema. Pain with with any movement of the knee. No deformities. Distal pulses are intact. Right lower extremity: Nontender, no deformities no swelling no warmth. Left upper extremity: No shoulder or elbow tenderness. There is no wrist swelling there is pain along the tendons of the dorsal and volar forearms with flexion or extension. No erythema. Pulses intact distally. Right upper extremity: Full range of motion without tenderness. Distal pulses intact. General Extremety ED: Negative for edema or tenderness General Extremity: Negative for edema Neuro oriented x3 and no sensory deficits noted Sensorium / Orientation: awake and alert Skin no rashes or lesions noted and no wounds MDM MDM MDM Narrative Medical decision making narrative: Interventions / MDM: Differential diagnosis: Arthralgias, septic joint, gout Diagnosis considered but do not suspect: N/A My EKG interpretation: N/A Imaging independently reviewed and interpreted by myself: Left knee x-ray 3 views: Prosthetic joint noted, no gross joint effusion noted. No dislocations. Also read by radiology. External documents reviewed: N/A Test considered but not ordered:N/A ED course: Patient had labs drawn including inflammatory markers and uric acid. Knee x-ray no significant joint effusion. He was treated with morphine and Zofran initially. In my evaluation patient pain started returning additional morphine was given. 0755: Laboratory studies returning notes a white count of 27.5 left shift, CRP 177 lactic acid 1.6. Uric acid 6.5. Sodium 127. Patient's close 407, gap is normal at 8. Potassium 5.3. I added blood cultures. Orthopedics was put on page for discussion. 0900: I spoke with on-call orthopedist Dr. Mcguire discussed the concerns, he states due to patient having a prosthetic knee at [facility] he recommended transfer. In addition I spoke with additional orthopedic doctor Dr. Rossi who is not on-call however his partner Dr. Jacobsen perform surgery on his hip 8 years ago. His partner is not available to assist with this case, they recommend also transfer to [facility] facility where his knee is performed. 1030: I spoke with [facility] transfer line, with orthopedist Dr. Andrade, discussed patient's history concerning findings, agrees with ED to ED transfer for his orthopedic team to evaluate for aspiration for concerning infected knee. 1050: I spoke with the ED physician at [facility] Dr. Roberts, discussed patient's history and concerns positive enteric coccus faecalis that was sensitive to ampicillin, linezolid and vancomycin along with discussion with multiple orthopedic doctors. He is excepted to the ED up there for further management for Ortho to see. Re-evaluation: stable Disposition discussed with patient/family/significant other: Patient and significant other Case discussed with consulting clinician: Orthopedics, Dr. Viera, Dr. Rossi, Dr. Andrade (CC). ED physician [facility] Dr. Roberts. This note was generated with [employer] dictation software. It may contain incorrect words, spelling, and punctuation that were not noted in checking the note before signing. Lab Data Attestation: I reviewed the patient's lab results. Labs: Laboratory Results - last 24 hr 08/02/22 06:40 WBC 27.5 H RBC 4.34 L Hgb 12.7 L Hct 38.1 L MCV 87.8 MCH 29.3 MCHC 33.3 RDW Std Deviation 48.8 H RDW Coeff of Wood 15.3 H Plt Count 356 MPV 12.2 H Immature Gran % (Auto) 0.600 Neut % (Auto) 89.7 H Lymph % (Auto) 4.3 L Sunflower % (Auto) 4.9 Eos % (Auto) 0.1 Baso % (Auto) 0.4 Absolute Neuts (auto) 24.7 H Absolute Lymphs (auto) 1.18 Nucleated RBC % 0 ESR 65 H Sodium 127 L Potassium 5.3 H Chloride 98 Carbon Dioxide 21.0 Anion Gap 8 BUN 34 H Creatinine 1.25 Est GFR (MDRD) Af Amer 76 Est GFR (MDRD) Non-Af 63 BUN/Creatinine Ratio 27.2 H Glucose 407 H Lactic Acid 1.6 Uric Acid 6.5 Calcium 9.2 C-React Prot Ext Range 177.00 H Procalcitonin 2.97 H Radiography Diagnostic Testing: Clinical Impression(s) from Imaging Studies Knee X-Ray 08/02/22 06:50 IMPRESSION: No acute fracture identified. 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 Knee prosthesis. Electronically Signed: Candelario Montalvo MD at 7:17 EDT , Critical Care Time Critical Care Time: Yes Critical care time (excluding procedures): 30-74 minutes, Discussing w/Patient &/or Family/Candles Pourer, Discussing w/Consultants, Arranging Admission or Transfer, Performing Direct Patient Care at Bedside and - (40 minutes) Discharge Plan Triage ED Provider: Provider,Ed Physician Dx/Rx/DC Orders Clinical Impression: Infection of prosthetic left knee joint, Lung abscess, Sepsis, Acute hyponatremia, Hyperglycemia due to diabetes mellitus, Enterococcus faecalis infection Prescriptions: No Action amoxicillin-pot clavulanate 875-125 mg tablet 1 tab PO BID Qty: 60 1RF benzonatate 100 mg capsule 100 mg PO Q4H PRN PRN (Reason: COUGH) Qty: 90 2RF lisinopril 20 mg Tablet 40 mg PO DAILY hydrocodone-acetaminophen 10-325 mg tablet 1 tab PO Q6H PRN (Reason: Pain) Patient Comments: 06/10/22 TAKE 1 TABLET BY MOUTH EVERY 6 HOURS FOR 30 DAYS gabapentin 800 mg tablet 800 mg PO 4X/DAY morphine 15 mg Tablet Extended Release 15 mg PO BID PRN (Reason: Pain) montelukast 10 mg Tablet 10 mg PO DAILY Qty: 30 0RF Sore Throat (phenol) 1.4 % Aerosol,Peerless 3 spray mucous membrane Q2H PRN PRN (Reason: Tingling in throat) Qty: 0 0RF multivitamin Tablet 1 tab PO DAILY atorvastatin 40 mg Tablet 40 mg PO DAILY sildenafil 100 mg Tablet 100 mg PO DAILY PRN (Reason: Erectile Dysfunction) Rx Instructions: administer 30 minutes to 4 hours before activity spironolactone 25 mg Tablet 25 mg PO DAILY ondansetron 8 mg Tablet,Disintegrating 8 mg PO Q12H PRN (Reason: Nausea) pantoprazole 20 mg Tablet,Delayed Release (Dr/Ec) 20 mg PO DAILY cyanocobalamin (vitamin B-12) 500 mcg Tablet 500 mcg PO DAILY albuterol sulfate [ProAir HFA] 90 mcg/actuation Hfa Aerosol Inhaler 2 puff INHALATION Q6H fluticasone propionate 50 mcg/actuation Peerless,Suspension 1 spray INTRANASAL DAILY Rx Instructions: administer into each nostril finasteride 5 mg Tablet 5 mg PO DAILY fluticasone furoate-vilanterol [Breo Ellipta] 100-25 mcg/dose Blister With Device 1 inh INHALATION Toujeo Max U-300 SoloStar 300 unit/mL (3 mL) Insulin Pen 16 unit SUBCUT BID Trulicity 4.5 mg/0.5 mL Pen Injector 4.5 mg SUBCUT QWEEK albuterol sulfate 2.5 mg /3 mL (0.083 %) solution for nebulization 2.5 mg inhalation Q4H PRN (Reason: Sob &/Or Wheezing) Qty: 180 3RF Primary Care Provider: Tatiana Browning Referrals: Tatiana Browning DO [Primary Care Provider] - Disposition Disposition: DC/Tx to Another Type of HCF Discharge Location: [facility] Discharge Date/Time: 08/02/22 11:50
[2022-08-02 07:48] LABS: Erythrocyte Sedimentation Rate 65 mm/hr (0-20)
[2022-08-02 07:50] LABS: Procalcitonin 2.97 ng/mL (0.00-0.09)
== END 2022-08-02 11:50 | disposition other institution (70) ==
PROVIDERS: PCP Family Medicine
DX: A41.81 Sepsis due to Enterococcus (principal); T84.54XA Infection and inflammatory reaction due to internal left knee prosthesis, initial encounter; E11.69 Type 2 diabetes mellitus with other specified complication; E11.65 Type 2 diabetes mellitus with hyperglycemia; J85.2 Abscess of lung without pneumonia; Z79.4 Long term (current) use of insulin; E87.1 Hypo-osmolality and hyponatremia; E78.00 Pure hypercholesterolemia, unspecified; I10 Essential (primary) hypertension; Z79.899 Other long term (current) drug therapy; J45.909 Unspecified asthma, uncomplicated; Z79.85 Long-term (current) use of injectable non-insulin antidiabetic drugs; Z79.51 Long term (current) use of inhaled steroids; K21.9 Gastro-esophageal reflux disease without esophagitis; Z96.642 Presence of left artificial hip joint; Z96.652 Presence of left artificial knee joint
CPT/HCPCS: 36415; 73560; 80048; 83605; 84145; 84550; 85025; 85652; 86140; 87040; 96374; 96375; 96376; 99285; J7040; A4216; J2405

== ENCOUNTER 2022-12-03 20:45 | Emergency (ER) | payer OTHER, SELFPAY ==
[2022-12-03 20:46] VITALS: BP 147/111; PULSE 118; RESP 19; TEMP 38.5; O2SAT 87; BMI 29.0
--- NOTE | 2022-12-03 21:30 | EKG12_ITS ---
Test Reason : Blood Pressure : / mmHG Vent. Rate : 113 BPM Atrial Rate : 113 BPM P-R Int : 138 ms QRS Dur : 082 ms QT Int : 316 ms P-R-T Axes : 020 021 021 degrees QTc Int : 433 ms Sinus tachycardia Possible Inferior infarct , age undetermined Abnormal ECG Confirmed by LB CORONA, DEIVKA ([id number]), market editor RICARDO RENDON ([id number]) on 12/05/2022 11:58:02 AM Referred By: Confirmed By:DEVIKA ASHER MD
--- NOTE | 2022-12-03 21:32 | RAD_ITS ---
INDICATION: Injury/Pain -- Pain, swelling, fever effusion EXAMINATION/TECHNIQUE: X-RAY - LEFT XR Knee 1 or 2 Views 2 VIEWS COMPARISON: None. FINDINGS: Findings suggesting small joint effusion. Anterior soft tissue swelling is noted above and below the knee. There is no patellar fracture. Left knee arthroplasty in grossly near-anatomic alignment without evidence of hardware failure or fracture. Corticated density near the medial femoral condyle on the left side may be as a result of old trauma. RAD/Knee 1 or 2 Views IMPRESSION: Soft tissue swelling and possible knee effusion. No hardware failure appreciated status post arthroplasty. Electronically Signed: Tam Dumont MD at 22:22 EDT ,
[2022-12-03] MEDS: 0.9% Normal Saline (1000mL) 1,000 ML 999 ML IV ×2 (21:50→22:41)
[2022-12-03 21:55] LABS: Absolute Lymphocyte Count 1.17 X10^3/uL (0.83-4.51); Absolute Neutrophil Count 8.1 X10^3/uL (2.0-7.7); Basophil# 0.03 X10^3/uL; Basophil% 0.3 % (0-1); Eosinophil# 0.09 X10^3/uL; Eosinophils% 0.9 % (0-5); Hematocrit 29.7 % (40-54); Hemoglobin 9.7 g/dL (13.0-16.5); Lymphocyte # 1.17 X10^3/ul (0.83-4.51); Lymphocyte % 11.5 % (19-41); Mean Corp Hgb Conc 32.7 g/dL (32-36); Mean Corpuscular Hgb 29.4 pg (27.0-32.0); Mean Platelet Vol. 10.6 fl (6.2-12.0); Monocyte# 0.71 X10^3/uL; NRBC Flagged by Analyzer 0 % (0-5); Neutrophil # 8.14 X10^3/uL (2.7-7.7); Platelet Count 265 K/mm3 (150-450); RBC Distribution Width CV 15.6 % (11.6-14.6); RBC Distribution Width SD 50.8 fl (35.1-43.9); White Blood Count 10.2 K/mm3 (4.4-11.0)
[2022-12-03 21:56] LABS: Allen Test Positive; Base Excess -2 mmol/L (-2 to +2); Bicarbonate 22.1 mmol/L (22-26); Blood Gas Specimen Type ART; FI02 2.5; Mode Not entered; O2 Delivery Device Cannula; PO2 75 mmHG (75-100); SITE R Radial; SO2 96 % (95-99); Total Carbon Dioxide 23 mmol/L; pCO2 32.9 mmHg (35-45); pH 7.43 (7.35-7.45)
[2022-12-03 22:02] VITALS: BP 87/48; PULSE 108; RESP 15; O2SAT 94
--- NOTE | 2022-12-03 22:05 | RAD_ITS ---
INDICATION: Fever and hypoxia EXAMINATION/TECHNIQUE: X-RAY - XR Chest 1 View COMPARISON: July 17, 2022. FINDINGS: Lower lung airspace disease bilaterally which is predominantly linear. Cardiac silhouette is probably normal in size. No effusion. No pneumothorax. No obvious adenopathy. Degenerative changes of the shoulders and spine are present. Nonspecific bowel gas pattern. Spinal stimulator device. RAD/Chest 1 View (Portable) IMPRESSION: Low lung volumes. Bibasilar opacity could reflect atelectasis. Pneumonia not excluded in the appropriate clinical setting. Electronically Signed: Tam Dumont MD at 22:24 EDT ,
[2022-12-03 22:16] LABS: International Normalized Ratio 1.1; Partial Thromboplast Time 34.2 Seconds (24.1-36.2); Prothrombin Time (Protime)PT. 14.6 SECONDS (11.7-14.9)
[2022-12-03 22:21] LABS: Erythrocyte Sedimentation Rate 18 mm/hr (0-20)
[2022-12-03 22:23] LABS: Bacteria 0 SEEN /hpf (None Seen); Mucous, Urine 0 SEEN /hpf (<or=2+); Red Blood Cells-Urine 0 SEEN /hpf (0-5)
[2022-12-03 22:24] LABS: ALB/GLOB Ratio 1.1 RATIO (0.9-2.4); AST(SGOT) 16 U/L (15-37); Alanine Aminotransfer ALT/SGPT 18 U/L (16-61); Albumin, Serum 3.3 g/dL (3.2-5.0); Alkaline Phosphatase 69 U/L (45-117); Anion Gap 5 (5-15); BUN 36 mg/dL (7-18); BUN/Creat Ratio 27.9 RATIO (10-20); Calcium,Total 8.3 mg/dL (8.5-10.1); Chloride 101 mmol/L (98-107); Creatinine, Serum 1.29 mg/dL (0.70-1.30); EST Glomerular Filtration Rate 61 mL/min (>60); Est Glom Filt Rate - Afr Amer 73 mL/min (>60); Estimated Creatinine Clearance 61.66 ml/min; Globulin 3.1 g/dL (2.2-4.2); Glucose 246 mg/dL (74-106); Potassium 5.4 mmol/L (3.5-5.1); Protein, Total 6.4 g/dL (6.4-8.2); Sodium Level 131 mmol/L (136-145)
[2022-12-03 22:28] LABS: Color, Urine Yellow (Yellow); Glucose, Dipstick 100 mg/dl (Normal); Ketone-Dipstick 5 mg/dl (Negative); Leukocyte Esterase-Dipstick 25 /ul (Negative); Nitrite-Dipstick Negative (Negative); Occult Blood-Urine Negative /ul (Negative); Protein-Dipstick 30 mg/dl (Negative); Urine Clarity Sl. Cloudy (Clear); Urine Urobilinogen 1 mg/dl (Normal)
[2022-12-03 22:30] LABS: Urine Bilirubin Dipstick 6 mg/dL (Negative)
--- NOTE | 2022-12-03 22:31 | EX.ED.DYSGE1 ---
HPI History of Present Illness Chief Complaint: Syncope Detail of Chief Complaint: 3 near syncopal sounds and change in mental status Informant: spouse/S.O. Onset/Context/Timing Onset: Today and Hours Context: Sudden Onset Timing: Continuous Quality: Patient is confused per . This started several hours prior to presenta Location: He presents from home. Current Severity: Moderate Maximum Severity: Severe Worsened by: Presumed sepsis Relieved by: Nothing Associated Symptoms Associated Symptoms: Fever, swelling and redness of left knee Narrative Narrative: Patient is a 57-year-old male who was admitted July of this year for lung mass which was found to be a abscess. Patient became bacteremic. His left prosthetic joint became infected. They placed antibiotic beads in the joint. Patient is unable to contribute much with regards to history of physical because he is encephalopathic. He believes its December 2012 and the day of the week is Sunday. Prior similar symptoms: Yes Recent Illness/Hospitalization: Yes (July and required transfer to [facility] for sepsis and) [facility] Medical History Asthma Atrial fibrillation Chest pain Chronic pain COVID-19 Essential hypertension GERD (gastroesophageal reflux disease) History of diabetes mellitus, type II History of obesity HLD (hyperlipidemia) Lung mass Pure hypercholesterolemia Restless legs syndrome (RLS) Spinal cord stimulator status Type 2 diabetes mellitus Home Medications gabapentin 800 mg tablet 800 mg PO 4X/DAY nerve pain 07/16/22 [History Last Taken Unknown] hydrocodone 10 mg-acetaminophen 325 mg tablet 1 tab PO Q6H PRN Pain 07/16/22 [History Last Taken Unknown] lisinopril 20 mg tablet 40 mg PO DAILY bp 07/16/22 [History Last Taken Unknown] morphine 15 mg tablet,extended release 15 mg PO BID PRN Pain 07/16/22 [History Last Taken Unknown] albuterol sulfate 90 mcg/actuation aerosol inhaler (ProAir HFA) 2 puff inhalation Q6H ASTHMA 07/18/22 [History Last Taken Unknown] cyanocobalamin (vitamin B-12) 500 mcg tablet 500 mcg PO DAILY HX GASTRIC BIPASS 07/18/22 [History Last Taken Unknown] dulaglutide 4.5 mg/0.5 mL subcutaneous pen injector (Trulicity) 4.5 mg subcut QWEEK DIABETES 07/18/22 [History Last Taken Unknown] finasteride 5 mg tablet 5 mg PO DAILY BPH 07/18/22 [History Last Taken Unknown] fluticasone furoate 100 mcg-vilanterol 25 mcg/dose inhalation powder (Breo Ellipta) 1 inh inhalation Q24H COUGH 07/18/22 [History Last Taken Unknown] fluticasone propionate 50 mcg/actuation nasal spray,suspension 1 spray intranasal DAILY NASAL SPRAY 07/18/22 [History Last Taken Unknown] insulin glargine U-300 conc 300 unit/mL (3 mL) subcutaneous pen (Toujeo Max U-300 SoloStar) 16 unit subcut BID DIABETES 07/18/22 [History Last Taken Unknown] montelukast 10 mg tablet 10 mg PO DAILY #30 tabs 07/18/22 [Rx Last Taken Unknown] multivitamin 1 tab PO DAILY SUPPLEMENT 07/18/22 [History Last Taken Unknown] ondansetron 8 mg disintegrating tablet 8 mg PO Q12H PRN Nausea 07/18/22 [History Last Taken Unknown] pantoprazole 20 mg tablet,delayed release 20 mg PO DAILY GERD 07/18/22 [History Last Taken Unknown] sildenafil 100 mg tablet 100 mg PO DAILY PRN Erectile Dysfunction 07/18/22 [History Last Taken Unknown] spironolactone 25 mg tablet 25 mg PO DAILY BP 07/18/22 [History Last Taken Unknown] amoxicillin 875 mg-potassium clavulanate 125 mg tablet 1 tab PO BID #60 tabs 07/20/22 [Rx Last Taken Unknown] benzonatate 100 mg capsule 100 mg PO Q4H PRN PRN COUGH #90 caps 07/20/22 [Rx Last Taken Unknown] albuterol sulfate 2.5 mg/3 mL (0.083 %) solution for nebulization 2.5 mg (3 mL) inhalation Q4H PRN Sob &/Or Wheezing #180 mL 07/27/22 [Rx Last Taken Unknown] chlorthalidone 25 mg tablet 25 mg PO DAILY 12/03/22 [History Last Taken Unknown] lubiprostone 8 mcg capsule 8 mcg PO DAILY 12/03/22 [History Last Taken Unknown] Allergy/AdvReac Type Severity Reaction Status Date / Time amantadine Allergy Hives Verified 07/20/22 10:34 metformin [From Glucophage] Allergy Itching Verified 07/20/22 10:34 pravastatin [From Pravachol] Allergy Hives Verified 07/20/22 10:34 salmon oil Allergy Itching Verified 07/20/22 10:34 simvastatin [From Zocor] Allergy Hives Verified 07/20/22 10:34 tamsulosin Allergy Swelling Verified 07/20/22 10:34 Family History Mother Breast cancer Hypertension Diabetes Father Hypertension Surgical History H/O gastric bypass History of left hip replacement History of total left knee replacement S/P insertion of spinal cord stimulator Social History household members: spouse Smoking Status: Never smoker second hand exposure: No alcohol intake: current alcohol intake frequency: holidays/special occasions only substance use type: does not use EXAM Physical Exam Const Vital Signs: 12/03/22 20:46 12/03/22 21:58 12/03/22 22:02 Temperature 101.3 F H Temperature Source Oral Pulse Rate 118 H 108 H Respiratory Rate 19 H 15 Blood Pressure 147/111 H 87/48 L Blood Pressure Mean 123 61 Pulse Ox 87 94 Oxygen Delivery Method Room Air Nasal Cannula Nasal Cannula Oxygen Flow Rate (L/min) 2 3 12/03/22 23:11 12/03/22 23:35 Temperature 100 F H 100.3 F H Temperature Source Oral Oral Pulse Rate 102 H 103 H Respiratory Rate 24 H 24 H Blood Pressure 114/66 131/57 H Blood Pressure Mean 82 81 Pulse Ox 97 96 Oxygen Delivery Method Nasal Cannula Nasal Cannula Oxygen Flow Rate (L/min) 2 2 Positive well nourished and well developed Constitutional Narrative: Patient is mottled. He has mild acral cyanosis. He does not appear well. General Appearance ED: well developed HEENT Reports dry mucous membranes HEENT Narrative: Head is atraumatic and normocephalic. Ears are normal. Posterior pharynx is normal. Mouth ED: Yes dry mucous membranes Mouth: dry mucous membranes Eyes PERRL and EOMs intact bilaterally General Eye ED: Negative for pale conjunctiva or scleral icterus Neck no lymphadenopathy, supple and no JVD Neck Narrative: There is no cervical lymphadenopathy. There is no grimacing with passive duction of the neck. Chest Wall inspection of chest normal and palpation of chest normal Resp normal respiratory effort and clear to auscultation bilaterally Cardio regular rhythm, S1 normal heart sound, S2 normal heart sound and no murmurs Rate: tachycardic GI normal to inspection, nondistended, normoactive bowel sounds, non-tender, non-distended and no masses; Negative for hepatosplenomegaly Back/Spine no CVA tenderness Extremity Extremity Narrative: Left knee is swollen boggy with effusion and hot to touch. He has grimacing and voices pain with passive flexion extension. This raises concern for pyogenic arthritis. Neuro No oriented x3 and CN's II-XII intact bilaterally Sensorium / Orientation: Negative for alert Psych Psych Narrative: Unable to assess Skin Skin Narrative: Left knee is warm and slightly red. He does appear flushed. Sepsis Attestation Sepsis Attestation: Agree w/Sepsis Date exam was performed: 12/03/22 Time exam was performed: 21:00 Possible Source of Sepsis: Bone/joint (Suspect left knee joint. Also hypoxic and cannot rule out pneumonia. Last admission patient had a pulmonary abscess.) Sepsis Organ Dysfunction Criteria Present: SBP < 90 mmHg or MAP < 65 mmHg and New/Unexplained change in mental status Fluid Resuscitation Fluid resuscitation indicated?: Yes Fluid Resuscitation ordered: 30 ml/kg fluid bolus ordered MDM MDM MDM Narrative Medical decision making narrative: Concern patient is septic and has an infected left prosthetic knee. Initially 1 L of normal saline was ordered. Nurse was instructed to give additional fluid. He will require 2.7 L since he has a blood pressure 87/48 with a mean arterial less than 65. Because the source is uncertain and last time his primary source was lung with seeding of the prosthesis he was treated with Zosyn and vancomycin. Appropriate blood work was obtained. EKG was obtained to rule out ischemia. Diagnostic arthrocentesis was performed. 1 cc of bloody turbid fluid was obtained. This was sent for culture. This was performed prior to the initiation of antibiotics. History & Record Review Discussion w/independent historian: Patient Lab Data Attestation: I reviewed the patient's lab results. Lab results narrative: White count is upper end of normal with slight shift. Coags are normal. Sodium is 131 with a potassium of 5.4. Anion gap is normal. BUN is 36 with a creatinine of 1.9. GFR is 61. Glucose is elevated to 46. UA reveals spec gravity 1.020. There is proteinuria glucose ketones. Negative for blood and nitrites. There is bilirubin noted. Of note total bili is only 1 suspect this is due to concentrated urine. Microscopic is pending. CRP 2 weeks ago was 1.4. CRP today is 166. Patient had approximately 2 to 3 g drop in his hemoglobin from prior. Labs: Laboratory Results - last 24 hr 12/03/22 12/03/22 21:43 22:19 WBC 10.2 RBC 3.30 L Hgb 9.7 L Hct 29.7 L MCV 90.0 MCH 29.4 MCHC 32.7 RDW Std Deviation 50.8 H RDW Coeff of Wood 15.6 H Plt Count 265 MPV 10.6 Immature Gran % (Auto) 0.300 Neut % (Auto) 80.0 H Lymph % (Auto) 11.5 L [place] % (Auto) 7.0 Eos % (Auto) 0.9 Baso % (Auto) 0.3 Absolute Neuts (auto) 8.1 H Absolute Lymphs (auto) 1.17 Nucleated RBC % 0 ESR 18 PT 14.6 INR 1.1 APTT 34.2 Sodium 131 L Potassium 5.4 H Chloride 101 Carbon Dioxide 25.0 Anion Gap 5 BUN 36 H Creatinine 1.29 Estim Creat Clear Calc 61.66 Est GFR (MDRD) Af Amer 73 Est GFR (MDRD) Non-Af 61 BUN/Creatinine Ratio 27.9 H Glucose 246 H Lactic Acid 1.0 Calcium 8.3 L Total Bilirubin 1.00 AST 16 ALT 18 Alkaline Phosphatase 69 C-React Prot Ext Range 166.00 H Total Protein 6.4 Albumin 3.3 Globulin 3.1 Albumin/Globulin Ratio 1.1 Urine Color Yellow Urine Clarity Sl. Cloudy Urine pH 5.0 Ur Specific [place] 1.020 Urine Protein 30 H Urine Glucose (UA) 100 H Urine Ketones 5 H Urine Occult Blood Negative Urine Nitrite Negative Urine Bilirubin 6 H Urine Urobilinogen 1 H Ur Leukocyte Esterase 25 H Urine RBC 0 SEEN Urine WBC 0-5 SEEN Ur Squamous Epith Cells 0-5 SEEN Urine Bacteria 0 SEEN Urine Mucus 0 SEEN ABG Data Attestation: I personally reviewed and interpreted this ABG as follows: Interpretation: ABG reveals no acid-base disturbance. Patient does have an increased AA gradient and correlates with his pulse ox. He could be hypoxic due to sepsis. ABG results: ABG 12/03/22 21:53 Specimen Type ART Sample Site R Radial pH 7.43 Bicarbonate Actual 22.1 Total CO2 23 Base Excess -2 O2 Saturation 96 O2 % 2.5 ABG pCO2 32.9 L ABG pO2 75 [place] Test Positive O2 Delivery Device Cannula Vent Mode Not entered Radiography Chest X-Ray - ED: 1 View (Single view x-ray reveals poor in story volume. There is probably atelectasis. Difficult to read cannot rule out pneumonia. Cardiac silhouette is in size is normal. Perihilar regions unremarkable. [place] structures unremarkable.) and Read by ED Physician (Reviewed x-ray of the knee reveals swelling what appears to be a small effusion. There is no obvious abnormality the prosthesis awaiting formal read by radiologist.) Diagnostic Testing: Clinical Impression(s) from Imaging Studies Knee X-Ray 12/03/22 21:32 IMPRESSION: Soft tissue swelling and possible knee effusion. No hardware failure appreciated status post arthroplasty. Electronically Signed: Tam Dumont MD at 22:22 EDT , Chest X-Ray 12/03/22 22:05 IMPRESSION: Low lung volumes. Bibasilar opacity could reflect atelectasis. Pneumonia not excluded in the appropriate clinical setting. Electronically Signed: Tam Dumont MD at 22:24 EDT , EKG Initial EKG: Attestation: I personally reviewed and interpreted this EKG as follows: Interpretation: Sinus Tachycardia (Sinus tachycardia rate of 113. MI intervals 138 ms. Cures duration 82 ms. QT duration 3 and 16 ms. [place] is normal. Disagree with computer reading of inferior infarct. There is artifact probably from his breathing.) Management Discussion w/another healthcare provider: Hospitalist (Case was discussed with hospitalist. Requested acceptance once bed is available [facility]. [facility] clinic was repaged.), Channel Account Manager and Other (Spoke to the SICU spring former Dr. Blancas and orthopedist ) Treatment and Re-Evaluation :: Patient's blood pressure at 2250 is 115 systolic. He is still tachycardic. He was fluid responsive. Procedures Other Procedures Procedure(s): Arthrocentesis left knee Critical Care Time Critical Care Time: Yes Critical care time (excluding procedures): 30-74 minutes (42), Including time spent: (History, physical, documentation, interpretation laboratory results and imaging, initiation of treatment for sepsis), Discussing w/Patient &/or Family/Containers Sales Representative, Discussing w/Consultants and Arranging Admission or Transfer Discharge Plan Triage Chief Complaint: Syncope ED Provider: Garett Luna Dx/Rx/DC Orders Clinical Impression: Pyogenic arthritis of left knee joint, Type 2 diabetes mellitus, Essential hypertension, Sepsis, Infectious encephalopathy, Acute hypotension, Acute hypoxic respiratory failure, Anemia, unspecified Prescriptions: No Action amoxicillin-pot clavulanate 875-125 mg tablet 1 tab PO BID Qty: 60 1RF benzonatate 100 mg capsule 100 mg PO Q4H PRN PRN (Reason: COUGH) Qty: 90 2RF lisinopril 20 mg Tablet 40 mg PO DAILY hydrocodone-acetaminophen 10-325 mg tablet 1 tab PO Q6H PRN (Reason: Pain) Patient Comments: 06/10/22 TAKE 1 TABLET BY MOUTH EVERY 6 HOURS FOR 30 DAYS gabapentin 800 mg tablet 800 mg PO 4X/DAY morphine 15 mg Tablet Extended Release 15 mg PO BID PRN (Reason: Pain) montelukast 10 mg Tablet 10 mg PO DAILY Qty: 30 0RF multivitamin Tablet 1 tab PO DAILY sildenafil 100 mg Tablet 100 mg PO DAILY PRN (Reason: Erectile Dysfunction) Rx Instructions: administer 30 minutes to 4 hours before activity spironolactone 25 mg Tablet 25 mg PO DAILY ondansetron 8 mg Tablet,Disintegrating 8 mg PO Q12H PRN (Reason: Nausea) pantoprazole 20 mg Tablet,Delayed Release (Dr/Ec) 20 mg PO DAILY cyanocobalamin (vitamin B-12) 500 mcg Tablet 500 mcg PO DAILY albuterol sulfate [ProAir HFA] 90 mcg/actuation Hfa Aerosol Inhaler 2 puff INHALATION Q6H fluticasone propionate 50 mcg/actuation [place],Suspension 1 spray INTRANASAL DAILY Rx Instructions: administer into each nostril finasteride 5 mg Tablet 5 mg PO DAILY fluticasone furoate-vilanterol [Breo Ellipta] 100-25 mcg/dose Blister With Device 1 inh INHALATION Q24H Toujeo Max U-300 SoloStar 300 unit/mL (3 mL) Insulin Pen 16 unit SUBCUT BID Trulicity 4.5 mg/0.5 mL Pen Injector 4.5 mg SUBCUT QWEEK chlorthalidone 25 mg tablet 25 mg PO DAILY Patient Comments: TAKE 1 TABLET in the morning with food Orally once a day FOR 30 days] lubiprostone 8 mcg capsule 8 mcg PO DAILY Patient Comments: TAKE 1 CAPSULE BY MOUTH DAILY WITH FOOD and water NEEDED albuterol sulfate 2.5 mg /3 mL (0.083 %) solution for nebulization 2.5 mg inhalation Q4H PRN (Reason: Sob &/Or Wheezing) Qty: 180 3RF Primary Care Provider: Tatiana Browning Referrals: Tatiana Browning, [Primary Care Provider] - Disposition Disposition: Acute Care Hospital Discharge Location: [facility]
[2022-12-03] MEDS: Piperacil/Tazobactam 4.5 GM in 0.9% Normal Saline (100mL MB+) 100 ML IV (22:41)
[2022-12-03 22:44] LABS: Squamous Epithelial Cells - UA 0-5 SEEN /hpf (0-5); White Blood Cells 0-5 SEEN /hpf (0-5)
--- NOTE | 2022-12-03 23:02 | HP.PCM.HOS_ITS ---
HPI - General HPI Narrative RAYMON CAMACHO, is a 57 M who presents PFSH Medical History Asthma Atrial fibrillation Chest pain Chronic pain COVID-19 Essential hypertension GERD (gastroesophageal reflux disease) History of diabetes mellitus, type II History of obesity HLD (hyperlipidemia) Lung mass Pure hypercholesterolemia Restless legs syndrome (RLS) Spinal cord stimulator status Type 2 diabetes mellitus Home Medications gabapentin 800 mg tablet 800 mg PO 4X/DAY nerve pain 07/16/22 [History Last Taken Unknown] hydrocodone 10 mg-acetaminophen 325 mg tablet 1 tab PO Q6H PRN Pain 07/16/22 [History Last Taken Unknown] lisinopril 20 mg tablet 40 mg PO DAILY bp 07/16/22 [History Last Taken Unknown] morphine 15 mg tablet,extended release 15 mg PO BID PRN Pain 07/16/22 [History Last Taken Unknown] albuterol sulfate 90 mcg/actuation aerosol inhaler (ProAir HFA) 2 puff inhalation Q6H ASTHMA 07/18/22 [History Last Taken Unknown] cyanocobalamin (vitamin B-12) 500 mcg tablet 500 mcg PO DAILY HX GASTRIC BIPASS 07/18/22 [History Last Taken Unknown] dulaglutide 4.5 mg/0.5 mL subcutaneous pen injector (Trulicity) 4.5 mg subcut QWEEK DIABETES 07/18/22 [History Last Taken Unknown] finasteride 5 mg tablet 5 mg PO DAILY BPH 07/18/22 [History Last Taken Unknown] fluticasone furoate 100 mcg-vilanterol 25 mcg/dose inhalation powder (Breo Ellipta) 1 inh inhalation Q24H COUGH 07/18/22 [History Last Taken Unknown] fluticasone propionate 50 mcg/actuation nasal spray,suspension 1 spray i ntranasal DAILY NASAL SPRAY 07/18/22 [History Last Taken Unknown] insulin glargine U-300 conc 300 unit/mL (3 mL) subcutaneous pen (Toujeo Max U- 300 SoloStar) 16 unit subcut BID DIABETES 07/18/22 [History Last Taken Unknown] montelukast 10 mg tablet 10 mg PO DAILY #30 tabs 07/18/22 [Rx Last Taken Unk nown] multivitamin 1 tab PO DAILY SUPPLEMENT 07/18/22 [History Last Taken Unknown] ondansetron 8 mg disintegrating tablet 8 mg PO Q12H PRN Nausea 07/18/22 [History Last Taken Unknown] pantoprazole 20 mg tablet,delayed release 20 mg PO DAILY GERD 07/18/22 [History Last Taken Unknown] sildenafil 100 mg tablet 100 mg PO DAILY PRN Erectile Dysfunction 07/18/22 [History Last Taken Unknown] spironolactone 25 mg tablet 25 mg PO DAILY BP 07/18/22 [History Last Taken Unknown] amoxicillin 875 mg-potassium clavulanate 125 mg tablet 1 tab PO BID #60 tabs 07/20/22 [Rx Last Taken Unknown] benzonatate 100 mg capsule 100 mg PO Q4H PRN PRN COUGH #90 caps 07/20/22 [Rx Last Taken Unknown] albuterol sulfate 2.5 mg/3 mL (0.083 %) solution for nebulization 2.5 mg (3 mL) inhalation Q4H PRN Sob &/Or Wheezing #180 mL 07/27/22 [Rx Last Taken Unknown] chlorthalidone 25 mg tablet 25 mg PO DAILY 12/03/22 [History Last Taken Unknown] lubiprostone 8 mcg capsule 8 mcg PO DAILY 12/03/22 [History Last Taken Unknown] Allergy/AdvReac Type Severity Reaction Status Date / Time amantadine Allergy Hives Verified 07/20/22 10:34 metformin [From Glucophage] Allergy Itching Verified 07/20/22 10:34 pravastatin [From Pravachol] Allergy Hives Verified 07/20/22 10:34 salmon oil Allergy Itching Verified 07/20/22 10:34 simvastatin [From Zocor] Allergy Hives Verified 07/20/22 10:34 tamsulosin Allergy Swelling Verified 07/20/22 10:34 Family History Mother Breast cancer Hypertension Diabetes Father Hypertension Surgical History H/O gastric bypass History of left hip replacement History of total left knee replacement S/P insertion of spinal cord stimulator Social History household members: spouse Smoking Status: Never smoker second hand exposure: No alcohol intake: current alcohol intake frequency: holidays/special occasions only substance use type: does not use Vital Signs Vital Signs Vital Signs: 12/03/22 20:46 12/03/22 21:58 12/03/22 22:02 Temperature 101.3 F H Temperature Source Oral Pulse Rate 118 H 108 H Respiratory Rate 19 H 15 Blood Pressure 147/111 H 87/48 L Blood Pressure Mean 123 61 Pulse Ox 87 94 Oxygen Delivery Method Room Air Nasal Cannula Nasal Cannula Oxygen Flow Rate (L/min) 2 3 Weight Weight: 89.4 kg Body Mass Index (BMI) 29.0 Results Lab / Micro Data 12/03/22 21:43 12/03/22 21:43 Labs: Laboratory Results - last 24 hr 12/03/22 21:43: WBC 10.2, RBC 3.30 L, Hgb 9.7 L, Hct 29.7 L, MCV 90.0, MCH 29.4, MCHC 32.7, RDW Std Deviation 50.8 H, RDW Coeff of Wood 15.6 H, Plt Count 265, MPV 10.6, Immature Gran % (Auto) 0.300, Neut % (Auto) 80.0 H, Lymph % (Auto) 11.5 L, [place] % (Auto) 7.0, Eos % (Auto) 0.9, Baso % (Auto) 0.3, Absolute Neuts (auto) 8.1 H, Absolute Lymphs (auto) 1.17, Nucleated RBC % 0, ESR 18, PT 14.6, INR 1.1, APTT 34.2, Sodium 131 L, Potassium 5.4 H, Chloride 101, Carbon Dioxide 25.0, Anion Gap 5, BUN 36 H, Creatinine 1.29, Estim Creat Clear Calc 61.66, Est GFR (MDRD) Af Amer 73, Est GFR (MDRD) Non-Af 61, BUN/Creatinine Ratio 27.9 H, Glucose 246 H, Lactic Acid 1.0, Calcium 8.3 L, Total Bilirubin 1.00, AST 16, ALT 18, Alkaline Phosphatase 69, C-React Prot Ext Range 166.00 H, Total Protein 6.4, Albumin 3.3, Globulin 3.1, Albumin/Globulin Ratio 1.1 12/03/22 22:19: Urine Color Yellow, Urine Clarity Sl. Cloudy, Urine pH 5.0, Ur Specific [place] 1.020, Urine Protein 30 H, Urine Glucose (UA) 100 H, Urine K etones 5 H, Urine Occult Blood Negative, Urine Nitrite Negative, Urine Bilirubin 6 H, Urine Urobilinogen 1 H, Ur Leukocyte Esterase 25 H, Urine RBC 0 SEEN, Urine WBC 0-5 SEEN, Ur Squamous Epith Cells 0-5 SEEN, Urine Bacteria 0 SEEN, Urine Mucus 0 SEEN ABG Data ABG results: ABG 12/03/22 21:53 Specimen Type ART Sample Site R Radial pH 7.43 Bicarbonate Actual 22.1 Total CO2 23 Base Excess -2 O2 Saturation 96 O2 % 2.5 ABG pCO2 32.9 L ABG pO2 75 [place] Test Positive O2 Delivery Device Cannula Vent Mode Not entered Radiology Impression Knee X-Ray 12/03/22 21:32 IMPRESSION: Soft tissue swelling and possible knee effusion. No hardware failure appreciated status post arthroplasty. Electronically Signed: Tam Dumont MD at 22:22 EDT Reading Location ID and State: [facility] / [place] Tel , Service support , Chest X-Ray 12/03/22 22:05 IMPRESSION: Low lung volumes. Bibasilar opacity could reflect atelectasis. Pneumonia not excluded in the appropriate clinical setting. Electronically Signed: Tam Dumont MD at 22:24 EDT ,
[2022-12-03 23:11] VITALS: BP 114/66; PULSE 102; RESP 24; TEMP 37.7; O2SAT 97
[2022-12-03] MEDS: Vancomycin HCl 2,000 MG in 0.9% Normal Saline (500mL Bag) 500 ML 250 MG IV (23:31)
[2022-12-03 23:35] VITALS: BP 131/57; PULSE 103; RESP 24; TEMP 37.9; O2SAT 96
[2022-12-04 00:36] VITALS: BP 123/57; PULSE 100; RESP 17; TEMP 37.2; O2SAT 96
--- NOTE | 2022-12-04 01:08 | NURSING ---
report given to transport team from [facility].
[2022-12-04 08:20] LABS: Bedside Glucose 156 mg/dL (74-106)
== END 2022-12-04 01:08 | disposition short-term general hospital (02) ==
PROVIDERS: Emergency Provider Emergency Medicine; PCP Family Medicine; Visit Provider Emergency Medicine
DX: A41.9 Sepsis, unspecified organism (principal); M00.862 Arthritis due to other bacteria, left knee; J96.01 Acute respiratory failure with hypoxia; E11.9 Type 2 diabetes mellitus without complications; E78.5 Hyperlipidemia, unspecified; I10 Essential (primary) hypertension; Z79.84 Long term (current) use of oral hypoglycemic drugs; D64.9 Anemia, unspecified; G89.29 Other chronic pain; I95.9 Hypotension, unspecified; Z86.16 Personal history of COVID-19
CPT/HCPCS: 20610; 36600; 51702; 71045; 73560; 80053; 81001; 82803; 82962; 83605; 85025; 85610; 85652; 85730; 86140; 87040; 87070; 87075; 87086; 87186; 87205; 93005; 96365; 96367; 99285; J7030; J7040; A4216

== ENCOUNTER 2023-09-28 08:30 | Outpatient (CLI) | payer OTHER, SELFPAY ==
[2023-09-28 09:56] LABS: Absolute Lymphocyte Count 1.47 X10^3/uL (0.83-4.51); Basophil% 0.9 % (0-1); Eosinophil# 0.32 X10^3/uL; Hematocrit 34.3 % (40-54); Hemoglobin 11.2 g/dL (13.0-16.5); Lymphocyte # 1.47 X10^3/ul (0.83-4.51); Lymphocyte % 13.6 % (19-41); Mean Corp Hgb Conc 32.7 g/dL (32-36); Mean Corpuscular Hgb 28.9 pg (27.0-32.0); Mean Corpuscular Volume 88.4 fL (80-94); Mean Platelet Vol. 10.3 fl (6.2-12.0); Monocyte# 0.85 X10^3/uL; Monocyte% 7.8 % (0-10); NRBC Flagged by Analyzer 0 % (0-5); Neutrophil # 7.98 X10^3/uL (2.7-7.7); Neutrophil % 73.7 % (47-70); Platelet Count 454 K/mm3 (150-450); RBC Distribution Width CV 13.2 % (11.6-14.6); Red Blood Count 3.88 M/mm3 (4.6-6.2); White Blood Count 10.8 K/mm3 (4.4-11.0)
[2023-09-28 10:05] LABS: Vancomycin, Random Level 20.8 ug/mL (0.0-15.0)
[2023-09-28 10:07] LABS: AST(SGOT) 14 U/L (15-37); Alanine Aminotransfer ALT/SGPT 18 U/L (16-61); Albumin, Serum 3.3 g/dL (3.2-5.0); Alkaline Phosphatase 122 U/L (45-117); Anion Gap 6 (5-15); BUN 22 mg/dL (7-18); BUN/Creat Ratio 24.1 RATIO (10-20); Bilirubin, Direct 0.18 mg/dL (0.00-0.30); Calcium,Total 9.3 mg/dL (8.5-10.1); Chloride 101 mmol/L (98-107); Creatinine, Serum 0.91 mg/dL (0.70-1.30); EST Glomerular Filtration Rate 90 mL/min (>60); Est Glom Filt Rate - Afr Amer 109 mL/min (>60); Globulin 4.1 g/dL (2.2-4.2); Glucose 251 mg/dL (74-106); Potassium 4.5 mmol/L (3.5-5.1); Protein, Total 7.4 g/dL (6.4-8.2); Sodium Level 134 mmol/L (136-145)
== END 2023-09-28 23:59 | disposition home or self-care (01) ==
LOC: LABSPEC 09:47
PROVIDERS: PCP Family Medicine; Referring Provider Internal Medicine; Visit Provider Internal Medicine
DX: T84.54XD Infection and inflammatory reaction due to internal left knee prosthesis, subsequent encounter (principal)
CPT/HCPCS: 80048; 80076; 80202; 85025

== ENCOUNTER 2023-10-03 08:32 | Outpatient (RCR) | payer OTHER, SELFPAY ==
[2023-10-03 16:08] LABS: Absolute Lymphocyte Count 1.02 X10^3/uL (0.83-4.51); Absolute Neutrophil Count 7.2 X10^3/uL (2.0-7.7); Basophil# 0.08 X10^3/uL; Basophil% 0.9 % (0-1); Eosinophil# 0.22 X10^3/uL; Eosinophils% 2.4 % (0-5); Hematocrit 34.1 % (40-54); Hemoglobin 10.8 g/dL (13.0-16.5); Lymphocyte # 1.02 X10^3/ul (0.83-4.51); Lymphocyte % 11.1 % (19-41); Mean Corp Hgb Conc 31.7 g/dL (32-36); Mean Corpuscular Volume 91.4 fL (80-94); Mean Platelet Vol. 11.1 fl (6.2-12.0); Monocyte# 0.59 X10^3/uL; Monocyte% 6.4 % (0-10); NRBC Flagged by Analyzer 0 % (0-5); Neutrophil # 7.22 X10^3/uL (2.7-7.7); Neutrophil % 78.4 % (47-70); Platelet Count 440 K/mm3 (150-450); RBC Distribution Width CV 13.2 % (11.6-14.6); RBC Distribution Width SD 43.8 fl (35.1-43.9); Red Blood Count 3.73 M/mm3 (4.6-6.2); White Blood Count 9.2 K/mm3 (4.4-11.0)
[2023-10-03 16:23] LABS: Vancomycin, Trough Level 15.3 ug/mL (5.0-15.0)
[2023-10-03 16:33] LABS: AST(SGOT) 13 U/L (15-37); Alanine Aminotransfer ALT/SGPT 15 U/L (16-61); Albumin, Serum 3.2 g/dL (3.2-5.0); Alkaline Phosphatase 115 U/L (45-117); Anion Gap 7 (5-15); BUN 17 mg/dL (7-18); BUN/Creat Ratio 19.9 RATIO (10-20); Bilirubin, Direct 0.14 mg/dL (0.00-0.30); Calcium,Total 9.2 mg/dL (8.5-10.1); Chloride 104 mmol/L (98-107); Creatinine, Serum 0.86 mg/dL (0.70-1.30); EST Glomerular Filtration Rate 97 mL/min (>60); Est Glom Filt Rate - Afr Amer 117 mL/min (>60); Globulin 3.5 g/dL (2.2-4.2); Glucose 319 mg/dL (74-106); Potassium 4.2 mmol/L (3.5-5.1); Protein, Total 6.7 g/dL (6.4-8.2); Sodium Level 136 mmol/L (136-145)
== END 2023-10-06 23:59 ==
LOC: LABSPEC 08:32
PROVIDERS: PCP Family Medicine; Referring Provider Internal Medicine; Visit Provider Internal Medicine
DX: T84.50XA Infection and inflammatory reaction due to unspecified internal joint prosthesis, initial encounter (principal)
CPT/HCPCS: 80048; 80076; 80202; 85025

== ENCOUNTER 2023-10-09 10:38 | Outpatient (RCR) | payer OTHER, SELFPAY ==
[2023-10-09 11:59] LABS: Absolute Lymphocyte Count 1.57 X10^3/uL (0.83-4.51); Absolute Neutrophil Count 7.1 X10^3/uL (2.0-7.7); Basophil# 0.08 X10^3/uL; Basophil% 0.8 % (0-1); Eosinophil# 0.31 X10^3/uL; Hematocrit 33.3 % (40-54); Hemoglobin 10.8 g/dL (13.0-16.5); Lymphocyte # 1.57 X10^3/ul (0.83-4.51); Mean Corp Hgb Conc 32.4 g/dL (32-36); Mean Corpuscular Hgb 29.1 pg (27.0-32.0); Mean Corpuscular Volume 89.8 fL (80-94); Mean Platelet Vol. 11.7 fl (6.2-12.0); Monocyte# 1.05 X10^3/uL; Monocyte% 10.1 % (0-10); NRBC Flagged by Analyzer 0 % (0-5); Neutrophil # 7.13 X10^3/uL (2.7-7.7); Neutrophil % 68.2 % (47-70); Platelet Count 346 K/mm3 (150-450); RBC Distribution Width CV 13.5 % (11.6-14.6); RBC Distribution Width SD 44.2 fl (35.1-43.9); Red Blood Count 3.71 M/mm3 (4.6-6.2); White Blood Count 10.4 K/mm3 (4.4-11.0)
[2023-10-09 12:03] LABS: Vancomycin, Trough Level 18.8 ug/mL (5.0-15.0)
[2023-10-09 12:04] LABS: AST(SGOT) 9 U/L (15-37); Alanine Aminotransfer ALT/SGPT 14 U/L (16-61); Albumin, Serum 3.1 g/dL (3.2-5.0); Alkaline Phosphatase 151 U/L (45-117); Anion Gap 5 (5-15); BUN 11 mg/dL (7-18); BUN/Creat Ratio 10.1 RATIO (10-20); Bilirubin, Direct 0.12 mg/dL (0.00-0.30); Chloride 106 mmol/L (98-107); Creatinine, Serum 1.09 mg/dL (0.70-1.30); EST Glomerular Filtration Rate 73 mL/min (>60); Est Glom Filt Rate - Afr Amer 89 mL/min (>60); Globulin 3.4 g/dL (2.2-4.2); Glucose 266 mg/dL (74-106); Potassium 3.7 mmol/L (3.5-5.1); Protein, Total 6.5 g/dL (6.4-8.2); Sodium Level 138 mmol/L (136-145)
== END 2023-11-05 23:59 ==
LOC: LABSPEC 10:38
PROVIDERS: PCP Family Medicine; Referring Provider Internal Medicine; Visit Provider Internal Medicine
DX: T84.50XA Infection and inflammatory reaction due to unspecified internal joint prosthesis, initial encounter (principal)
CPT/HCPCS: 80048; 80076; 80202; 85025

== ENCOUNTER → 2023-10-16 | Outpatient (CLI) | payer OTHER, SELFPAY ==
[2023-10-16 09:38] LABS: Absolute Lymphocyte Count 1.59 X10^3/uL (0.83-4.51); Absolute Neutrophil Count 3.6 X10^3/uL (2.0-7.7); Basophil# 0.06 X10^3/uL; Eosinophil# 0.28 X10^3/uL; Eosinophils% 4.4 % (0-5); Hemoglobin 10.4 g/dL (13.0-16.5); Lymphocyte # 1.59 X10^3/ul (0.83-4.51); Lymphocyte % 25.2 % (19-41); Mean Corp Hgb Conc 32.5 g/dL (32-36); Mean Corpuscular Hgb 28.6 pg (27.0-32.0); Mean Corpuscular Volume 87.9 fL (80-94); Mean Platelet Vol. 11.9 fl (6.2-12.0); Monocyte# 0.65 X10^3/uL; Monocyte% 10.3 % (0-10); NRBC Flagged by Analyzer 0 % (0-5); Neutrophil # 3.63 X10^3/uL (2.7-7.7); Neutrophil % 57.7 % (47-70); Platelet Count 197 K/mm3 (150-450); RBC Distribution Width CV 13.4 % (11.6-14.6); RBC Distribution Width SD 43.3 fl (35.1-43.9); Red Blood Count 3.64 M/mm3 (4.6-6.2); White Blood Count 6.3 K/mm3 (4.4-11.0)
[2023-10-16 10:24] LABS: AST(SGOT) 12 U/L (15-37); Alanine Aminotransfer ALT/SGPT 12 U/L (16-61); Albumin, Serum 2.9 g/dL (3.2-5.0); Alkaline Phosphatase 111 U/L (45-117); Anion Gap 5 (5-15); BUN 6 mg/dL (7-18); BUN/Creat Ratio 7.9 RATIO (10-20); Bilirubin, Direct 0.14 mg/dL (0.00-0.30); Calcium,Total 8.9 mg/dL (8.5-10.1); Chloride 107 mmol/L (98-107); Creatinine, Serum 0.76 mg/dL (0.70-1.30); EST Glomerular Filtration Rate 111 mL/min (>60); Est Glom Filt Rate - Afr Amer 134 mL/min (>60); Globulin 3.1 g/dL (2.2-4.2); Glucose 151 mg/dL (74-106); Potassium 3.2 mmol/L (3.5-5.1); Sodium Level 140 mmol/L (136-145)
[2023-10-16 10:26] LABS: Vancomycin, Random Level 15.4 ug/mL (0.0-15.0)
== END | disposition home or self-care (01) ==
LOC: LABSPEC 09:30
PROVIDERS: PCP Family Medicine; Visit Provider Internal Medicine
DX: T84.50XA Infection and inflammatory reaction due to unspecified internal joint prosthesis, initial encounter (principal)
CPT/HCPCS: 80048; 80076; 80202; 85025

== ENCOUNTER → 2025-01-07 | Outpatient (CLI) | payer OTHER, SELFPAY ==
--- NOTE | 2025-01-07 14:14 | NEURO ---
NCS and/or EMG Patient Report Ordering Doctor: Tatiana Browning DATE OF SERVICE: 01/07/25 Gil presents with complaints of numbness in both feet and aching in the lower legs. Electrodiagnostic findings: Right peroneal motor nerve demonstrates normal distal latency with decreased amplitude and decreased conduction velocity. Left peroneal motor nerve demonstrates prolonged distal latency with normal amplitude and reduced conduction velocity. Tibial motor nerve demonstrates normal distal latency bilaterally with reduced amplitudes and reduced conduction velocities. Prolonged tibial and peroneal F?waves. Prolonged H?reflux bilaterally. Prolonged sural latency bilaterally. Prolonged right superficial peroneal response. Absent left superficial peroneal response. Absent medial plantar response bilaterally. Needle EMG testing was performed in the lower limbs. Motor units of increased amplitude and duration noted bilaterally in the tibialis anterior and gastrocnemius. Electrodiagnostic impression: This is an abnormal study. 1. Electrodiagnostic findings suggestive of peripheral polyneuropathy, with motor and sensory nerve involvement. There is evidence of axonal loss and demyelination. Multi Select Codes Neurology Neurology Interp Codes: 20492-36 Musc test done w/n test comp (interp) (2) and 01203-57 Nr cndj test 11-12 studies (interp)
== END | disposition home or self-care (01) ==
PROVIDERS: PCP Family Medicine; Referring Provider Family Medicine; Visit Provider Family Medicine
DX: G62.9 Polyneuropathy, unspecified (principal)
CPT/HCPCS: 95886; 95912